=== PATIENT | male | born 1955 | race Caucasian/White ===

== ENCOUNTER → 2017-12-12 10:22 | Outpatient (CLI) | payer MEDICARE, BC, SELFPAY ==
--- NOTE | 2017-12-12 10:45 | IR_ITS ---
IR shuntogram CLINICAL INDICATION: ITS.REASON: NORMAL PRESSURE HYDROCEPHALUS ORDERING PHYSICIAN: Niels Corona MD PATIENT AGE: 62 years Comparison: 02/01/2016 FINDINGS: Multiple images are obtained including AP and lateral skull, PA and lateral chest, AP and lateral abdomen. There is a right ventriculoperitoneal shunt present. The shunt does appear intact throughout its course from the right parietal region of the skull along the right neck, right anterior chest, and right side of the abdomen anteriorly with shunt coursing toward the left side of the abdomen in the upper pelvic region where it appears to enter the abdominal cavity with the tip residing in the left mid abdominal region. No obvious kinks within the catheter. The cardiovascular structures have an unremarkable appearance. There is a calcified granuloma in the left upper lobe. There are degenerative changes in the thoracic spine. The bowel gas pattern is unremarkable. No acute bony anomalies are evident. IMPRESSION: Radiographically, the ventriculoperitoneal catheter appears intact as described above.
== END ==
PROVIDERS: PCP Family Medicine; Visit Provider Family Medicine
DX: G91.2 (Idiopathic) normal pressure hydrocephalus (principal)
CPT/HCPCS: 75809

== ENCOUNTER → 2018-12-25 13:33 | Outpatient (CLI) | payer MEDICARE, SELFPAY ==
--- NOTE | 2018-12-25 13:36 | US_ITS ---
APPROVED REPORT [employer] Designer: Jennifer Lizama, RT(R) Indications Risk Factors Hyperlipidemia Diabetes History of Smoking Pressures/Indices Right Indices Left Indices Brachial 98.00 mmHg Brachial 100.00 mmHg Low Thigh 102.00 mmHg 1.02 Low Thigh 106.00 mmHg 1.06 Calf 100.00 mmHg 1.00 Calf 101.00 mmHg 1.01 Ankle(PT) 109.00 mmHg 1.09 Ankle(PT) 102.00 mmHg 1.02 Ankle(DP) 84.00 mmHg 0.84 Ankle(DP) 102.00 mmHg 1.02 Digit 70.00 mmHg 0.70 Digit 83.00 mmHg 0.83 Findings RT MURALI=1.1 LT MURALI=1.0 RT TBI=0.7 LT TBI=0.8 Normal waveforms Normal pulses Conclusion Normal Electronically signed by : Marvin Espinoza MD 12/29/2018 09:24:38
== END ==
PROVIDERS: PCP Family Medicine; Visit Provider Podiatrist
DX: R09.89 Other specified symptoms and signs involving the circulatory and respiratory systems (principal)
CPT/HCPCS: 93923

== ENCOUNTER 2018-12-25 15:00 | Outpatient (RCR) | payer MEDICARE, SELFPAY ==
--- NOTE | 2018-10-14 14:26 | HMH.PTOPWND ---
Rehab Outpt Wound Evaluation Rehab OP Wound Evaluation Start: 10/14/18 13:57 Freq: Status: Active Protocol: Document 10/14/18 14:19 MILLY (Rec: 10/14/18 14:26 PHORNE [id number]) Electronically Signed By Cale Short, MART 10/14/18 14:19 Subjective/History History History Pt is a 62 yowm who presents with c/o increased edema in tyler LE x many years. He reports no c/o pain currently, but is tender to palpation throughout tyler lower legs. He is somewhat of a poor historian and reports he can't walk, but doesn't know why. He uses a motorized scooter for his primary means of mobility, but has a cane with him to assist with transfers. He has hx of DM-II with peripheral neuropathy and ventricular-peritoneal shunt. He is unable to remember any other PMH. Subjective Subjective No c/o pain currently, but 2+ tenderness to palpation throughout the lower legs bilaterally. Lymphedema Eval Classification of Lymphedema Secondary Lymphedema Yes Stemmer's sign Stemmer's Sign no Stage of Lymphedema Lymphedema stages Stage II (Pitting edema, increased fibrosis w/ decreased pitting) Skin Changes Dry Skin Yes Taut, Shiny Skin Yes Redness Yes Brittle Uneven Nails Yes Discoloration of Skin Yes Other Changes Yes Affected Extremities Areas Affected by Lymphedema/Edema Right Lower Extremity,Left Lower Extremity Manual Lymphatic Drainage Treatment Area MLD Treatment Area Right Lower Extremity,Left Lower Extremity Wound Problems/Impairments Impairments Problems/Impairmments Palpation Tenderness,Impaired Strength,Impaired Endurance, Impaired Gait Pattern,Impaired Walking,Impaired Standing, Increased Edema,Lymphedema Present,Subjective C/O Pain, Impaired Self Care/Self Management Prognosis Rehab Potential F
== END 2018-12-25 15:05 | disposition home or self-care (01) ==
LOC: PT 15:00
PROVIDERS: Visit Provider Family Medicine
DX: R60.0 Localized edema (principal)
CPT/HCPCS: 97110; 97112; 97116; 97140; 97162; 97530; 97760

== ENCOUNTER 2018-12-26 11:09 | Observation (INO) ==
--- NOTE | 2018-12-26 13:05 | Emergency Department Note ---
ED Disposition Clinical Impression: Recurrent shoulder dislocation, Contusion of right knee, Diabetes mellitus Disposition: Admitted as Observation Condition on Discharge: Fair Instructions: DI for Moderate Sedation Referrals: Niels Corona MD [Primary Care Provider] - Time of Disposition: 15:22 - Critical Care Critical Care Time: No Attestation: On 12/26/18, the high probability of a clinically significant, sudden or life threatening deterioration of the following system(s) required my full and direct attention, intervention and personal management. The time I documented below is in addition to time spent performing reported procedures but includes the following listed in this critical care notation. Medical Decision Making - Medical Records Medical records reviewed: Yes: I reviewed the patient's medical records. - Naeem Inquiry Pt receiving controlled substance: No Naeem was queried for this patient: No Vital Signs: 12/26/18 11:09 12/26/18 11:39 12/26/18 12:28 Temperature 98.0 F Temperature Source Oral Pulse Rate [Left Radial] 96 H 89 80 Respiratory Rate 20 17 18 Blood Pressure [Left Arm] 159/82 H 149/68 H 138/62 Blood Pressure Mean [Left Arm] 107 95 87 Blood Pressure Source [Left Arm] Automatic Cuff Automatic Cuff Automatic Cuff Blood Pressure Position [Left Arm] Sitting Supine Sitting 02 Sat by Pulse Oximetry 98 91 L 93 L Oxygen Delivery Method Room Air Room Air Room Air Oxygen Flow Rate (LPM) 12/26/18 12:30 12/26/18 12:49 12/26/18 12:53 Temperature Temperature Source Pulse Rate [Left Radial] 85 89 96 H Respiratory Rate 18 18 16 Blood Pressure [Left Arm] 138/62 126/78 141/86 H Blood Pressure Mean [Left Arm] 87 94 104 Blood Pressure Source [Left Arm] Automatic Cuff Automatic Cuff Automatic Cuff Blood Pressure Position [Left Arm] Sitting Sitting Supine 02 Sat by Pulse Oximetry 92 L 96 94 L Oxygen Delivery Method Room Air Nasal Cannula Nasal Cannula Oxygen Flow Rate (LPM) 2 2 12/26/18 12:56 12/26/18 12:59 12/26/18 13:00 Temperature Temperature Source Pulse Rate [Left Radial] 90 87 82 Respiratory Rate 16 16 Blood Pressure [Left Arm] 148/91 H 128/71 136/67 Blood Pressure Mean [Left Arm] 110 90 90 Blood Pressure Source [Left Arm] Automatic Cuff Automatic Cuff Automatic Cuff Blood Pressure Position [Left Arm] Sitting Supine Sitting 02 Sat by Pulse Oximetry 94 L 94 L 94 L Oxygen Delivery Method Nasal Cannula Nasal Cannula Oxygen Flow Rate (LPM) 2 2 12/26/18 13:03 12/26/18 13:30 12/26/18 14:39 Temperature Temperature Source Pulse Rate [Left Radial] 83 81 86 Respiratory Rate 16 17 Blood Pressure [Left Arm] 136/67 171/68 H 127/74 Blood Pressure Mean [Left Arm] 90 102 91 Blood Pressure Source [Left Arm] Automatic Cuff Automatic Cuff Blood Pressure Position [Left Arm] Supine Sitting 02 Sat by Pulse Oximetry 94 L 96 93 L Oxygen Delivery Method Nasal Cannula Room Air Room Air Oxygen Flow Rate (LPM) 2 12/26/18 15:00 Temperature Temperature Source Pulse Rate [Left Radial] 79 Respiratory Rate 18 Blood Pressure [Left Arm] 134/79 Blood Pressure Mean [Left Arm] 97 Blood Pressure Source [Left Arm] Automatic Cuff Blood Pressure Position [Left Arm] Sitting 02 Sat by Pulse Oximetry 98 Oxygen Delivery Method Room Air Oxygen Flow Rate (LPM) - Lab Data Lab results reviewed: Yes: I reviewed the patient's lab results. Lab Results 12/26/18 14:09: WBC 10.2, RBC 4.77, Hgb 13.9 L, Hct 45.1, MCV 94.6 H, MCH 29.1, MCHC 30.7 L, RDW 14.1, Plt Count 228, MPV 6.5 L, Neut % (Auto) 83.2 H, Lymph % (Auto) 9.3 L, [place] % (Auto) 7.3, Eos % (Auto) 0.0 L, Baso % (Auto) 0.1, Neut # (Auto) 8.5 H, Lymph # (Auto) 1.0, [place] # (Auto) 0.8, Eos # (Auto) 0.0, Baso # (Auto) 0.0 12/26/18 14:09: Sodium 138, Potassium 5.4 H, Chloride 103, Carbon Dioxide 29, Anion Gap 11.4, BUN 31 H, Creatinine 1.42 H, Estimated Creat Clear 58, Estimated GFR 50 L, Est GFR ( Amer) 61, Glucose 115 H, Calcium 8.6, Total Bilirubin 0.3, AST 23, ALT 25, Alkaline Phosphatase 59, Total Protein 6.0 L, Albumin 2.7 L , Globulin 3.3 H, Albumin/Globulin Ratio 0.8 L Result diagrams: 12/26/18 14:09 12/26/18 14:09 Orders (Tests/Meds): ED MEDICATIONS Generic Name Dose Route Start Last Admin Trade Name Freq PRN Reason Stop Dose Admin Sodium Chloride 1,000 mls @ 999 mls/hr 12/26/18 13:00 12/26/18 12:59 Sod Chlor 0.9% 1000ml Bag IV 12/26/18 14:00 999 mls/hr .Q1H1M EDISON Administration Discontinued Medications Generic Name Dose Route Start Last Admin Trade Name Freq PRN Reason Stop Dose Admin Ketamine HCl 25 mg 12/26/18 12:49 12/26/18 12:49 Ketamine 500mg/10ml Vial IV 12/26/18 12:50 25 mg ONCE ONE Administration Ketamine HCl 25 mg 12/26/18 12:50 12/26/18 12:50 Ketamine 500mg/10ml Vial IV 12/26/18 12:51 25 mg ONCE ONE Administration Morphine Sulfate 2 mg 12/26/18 12:38 12/26/18 12:39 Morphine 2mg/Ml Syringe IV 12/26/18 12:39 2 mg ONCE ONE Administration - Physician Consults Physician Consulted: joel Time: 15:22 Fall HPI - General Chief Complaint: Fall Stated Complaint: fall Time Seen by Provider: 12/26/18 11:25 Mode of Arrival: Wheelchair Source of Information: Patient Limitations: No Limitations Description of Symptoms (Recalled from ER Triage Doc. by RN): Pt c/o R shoulder pain and R femur pain r/t approx 1 hour [employer]. Pt reports he was walking with his walker and tripped over his dogs. Raised area on lateral side of R femur, pt c/o of pain with any movement of R shoulder. Pt denies LOC, states he did not his head when he fell. - History of Present Illness HPI Narrative: fall using his walker, dogs tripped him up. obvious deformity to right shoulder and pain R knee - Related Data Home Medications Medication Instructions Recorded Confirmed blood sugar diagnostic strips See Dose Instructions .ROUTE 12/15/18 12/15/18 .MEDSUPPLY #100 each divalproex 500 mg tablet,delayed 1,000 mg PO HS #180 tab 12/15/18 12/26/18 release exenatide ER 2 mg/0.65 mL 2 mg SQ WEEKLY #4 each 12/15/18 12/26/18 subcutaneous pen injector ezetimibe 10 mg tablet 10 mg PO DAILY #90 tab 12/15/18 12/26/18 glimepiride 4 mg tablet 4 mg PO DAILY #90 tab 12/15/18 12/26/18 insulin glargine (U-100) 100 55 units SQ DAILY #10 ml 12/15/18 12/26/18 unit/mL subcutaneous solution insulin syringe U-100 with needle See Dose Instructions .ROUTE 12/15/18 12/15/18 0.5 mL 30 gauge x 1/2" .MEDSUPPLY #60 each levothyroxine 100 mcg tablet 100 mcg PO DAILY #30 tab 12/15/18 12/26/18 loperamide 2 mg capsule PO #20 cap 12/15/18 12/15/18 meclizine 25 mg tablet 25 mg PO TID #90 tab 12/15/18 12/26/18 niacin ER 500 mg tablet,extended 500 mg PO HS #90 tab 12/15/18 12/26/18 release 24 hr olanzapine 5 mg tablet 5 mg PO DAILY #90 tab 12/15/18 12/26/18 oxybutynin chloride 5 mg tablet 5 mg PO BID #180 tab 12/15/18 12/26/18 pioglitazone 15 mg tablet 15 mg PO DAILY #60 tab 12/15/18 12/26/18 potassium chloride ER 20 mEq 20 meq PO DAILY #90 tab 12/15/18 12/26/18 tablet,extended release(part/cryst) spironolactone 25 mg tablet 25 mg PO DAILY #90 tab 12/15/18 12/26/18 Aspirin [Aspirin 325mg Tab] 325 mg PO DAILY 12/26/18 12/26/18 Allergies Allergy/AdvReac Type Severity Reaction Status Date / Time No Known Drug Allergies Allergy Unknown Verified 12/26/18 12:39 [facility] History - Hepatitis A Screen Drug use history?: No High risk sexual behaviors?: No History of sexually transmitted infection?: No Currently employed?: No Childcare worker?: No Do you have indoor plumbing?: Yes Do you have electricity?: Yes Attestation statement:: This patient has been screened for Hepatitis A risk factors. I have reviewed the patient's past medical history: Yes Medical History: Reports:: Diabetes Mellitus Type 2 Amputation: No Fractures: No - Social History Smoking Status: Former smoker Alcohol Intake: never Substance Use Type: denies use Occupational Status: retired Housing: house Household Members: family Family Hx:: No significant family history ROS Obtained: Yes All systems reviewed & no additional complaints - Constitutional Constitutional: Denies chills, Denies fever(s) - Cardiovascular Cardiovascular: Denies chest pain - Respiratory Respiratory: No cough, No dyspnea - Gastrointestinal Gastrointestingal: Denies: abdominal pain - Musculoskeletal Musculoskeletal: Reports joint pain, Reports joint swelling, Reports limited range of motion - Integumentary/Breasts Skin/Breast: Denies rash, Denies skin pain - Neurologic Neurologic: Denies tingling/numbness/burning sensations Physical Exam - General General appearance: alert, in no apparent distress - Head Head exam: atraumatic, normocephalic, normal inspection - Eye Eye exam: Present: normal appearance, PERRL, EOMI - ENT ENT exam: Present: normal exam, normal oropharynx, mucous membranes moist, TM's normal bilaterally, normal external ear exam - Neck Neck exam: Present: normal inspection, full ROM, trachea midline. Absent: meningismus, lymphadenopathy - Chest Chest inspection: Present: normal inspection, symmetric chest wall rise. Absent: tenderness - Respiratory Respiratory exam: Present: normal lung sounds bilaterally. Absent: respiratory distress - Cardiovascular Cardiovascular exam: Present: regular rate - Abdominal Exam Abdominal exam: Present: soft, normal bowel sounds. Absent: distention, tenderness, guarding - Extremities Exam Extremities exam: Present: tenderness, normal capillary refill. Absent: normal inspection, full ROM, calf tenderness - Expanded Upper Extremity Exam Right Shoulder exam: Present: tenderness, swelling, deformity. Absent: normal inspection - Back Exam Back exam: Present: normal inspection. Absent: tenderness - Neurological Exam Neurological exam: Present: alert, oriented X3 - Psychiatric Psychiatric exam: Present: normal affect, normal mood - Skin Skin exam: Present: warm, dry, intact, normal color - Lymphatic Lymphatic Findings: no adenopathy Procedures - Orthopedic Joint Reduction Joint #1 Time Out Performed: No Side: right Joint Reduction Location: shoulder Analgesia: procedural sedation Shoulder Technique Used (if applicable): traction/counter-traction Post-reduction neuro exam: intact Post-reduction vascular: intact Post Reduction X-Ray Obtained: Yes Post Reduction X-Ray Results: reduced
[2018-12-26 14:30] LABS: Basophils % 0.1 % (0.1-2.0); Hematocrit 45.1 % (42.0-52.0); Hemoglobin 13.9 g/dL (14.1-18.0); Lymphocytes % 9.3 % (10-50); Mean Corpuscular HGB Conc 30.7 g/dL (31.8-35.4); Mean Corpuscular Volume 94.6 fl (80-94); Mean Platelet Volume 6.5 fl (7.4-10.4); Monocytes # 0.8 K/mm3 (0.1-1.0); Monocytes % 7.3 % (1.7-9.3); Neutrophils # 8.5 K/mm3 (1.8-7.8); Neutrophils % 83.2 % (37.0-80.0); Platelet Count 228 K/mm3 (142-424); Red Blood Count 4.77 M/mm3 (4.60-6.20); Red Cell Distribution Width 14.1 % (11.5-17.5); White Blood Count 10.2 K/mm3 (4.8-10.8)
[2018-12-26 14:41] LABS: Albumin Level 2.7 gm/dL (3.4-5.0); Albumin/Globulin Ratio 0.8 (1.1-1.8); Anion Gap 11.4 mEq/L (5-15); Bilirubin,Total 0.3 mg/dL (0.2-1.0); Calcium 8.6 mg/dL (8.5-10.1); Globulin 3.3 gm/dl (1.3-3.2)
[2018-12-27 06:38] LABS: Basophils % 0.2 % (0.1-2.0); Eosinophils % 0.3 % (0.1-12.0); Hematocrit 42.5 % (42.0-52.0); Hemoglobin 13.8 g/dL (14.1-18.0); Lymphocytes # 1.8 K/mm3 (0.7-4.5); Lymphocytes % 20.8 % (10-50); Mean Corpuscular HGB Conc 32.4 g/dL (31.8-35.4); Mean Corpuscular Volume 93.7 fl (80-94); Mean Platelet Volume 6.8 fl (7.4-10.4); Monocytes # 0.8 K/mm3 (0.1-1.0); Monocytes % 9.2 % (1.7-9.3); Neutrophils % 69.4 % (37.0-80.0); Platelet Count 225 K/mm3 (142-424); Red Blood Count 4.54 M/mm3 (4.60-6.20); Red Cell Distribution Width 14.1 % (11.5-17.5); White Blood Count 8.6 K/mm3 (4.8-10.8)
[2018-12-27 07:13] LABS: Anion Gap 8.4 mEq/L (5-15)
[2018-12-27 07:28] LABS: Calcium 8.3 mg/dL (8.5-10.1)
--- NOTE | 2018-12-27 08:08 | Pharmacy Consult Notes ---
[facility] Pharmacy VTE Monitoring - Patient Demographics Admission date: 12/26/18 Report Date: 12/27/18 Time: 08:07 Allergies/Adverse Reactions: Patient Allergies No Known Drug Allergies Allergy (Unknown, Verified 12/26/18 12:39) Height: 1.83 m Weight: 154.4 kg Patient Problems: Current Active Problems Recurrent shoulder dislocation (Acute) Contusion of right knee (Acute) Diabetes mellitus (Acute) - VTE Risk Labs: VTE Related Lab Results Hgb 13.8 g/dL (14.1-18.0) L 12/27/18 06:32 Hct 42.5 % (42.0-52.0) 12/27/18 06:32 Plt Count 225 K/mm3 (142-424) 12/27/18 06:32 BUN 22 mg/dL (7-18) H D 12/27/18 06:32 Creatinine 1.12 mg/dL (0.70-1.30) D 12/27/18 06:32 Estimated Creat Clear 73 mL/min (50-200) 12/27/18 06:32 Was VTE Risk Assessment Performed: Yes VTE Score: 4 VTE Risk Level: Low Risk - Prophylaxis VTE Prophylaxis Ordered?: Yes Types of VTE Prophylaxis: TEDS Knee High Location of Applied Device: Bilateral Lower Extremeties - VTE Diagnosis Confirmed Treatment or plan recommended: Continue Current Treatment
--- NOTE | 2018-12-27 08:43 | History & Physical Report ---
*Admission Date: 12/26/18 *Chief complaint: Shoulder injury in a fall *History of present illness: This 63-year-old white male fell and dislocated his right shoulder. He was seen in the emergency room the shoulder was reduced by the ER doctor. He had an injury to the right femur but x-rays were negative here. He has ongoing problems with mobility. He has normal pressure hydrocephalus and has a shunt in place. He has a lot of leg edema as a rule. He is not very mobile at home. He does have a scooter. What happened to him yesterday morning was that he was using his walker and his dogs got in his way and he fell. He feels that he is not going to be able to go home. His gives him much assistance and he feels that with this additional disability she will not be able to manage him. He feels that a short stay for rehabilitation in a long-term may be a possibility. [facility] History Medical History: Reports:: Diabetes Mellitus Type 2, Hyperlipidemia, Hypertension Denies:: Cancer *Have you ever received a pneumonia vaccine?: Yes *Have you received a flu vaccine this season?: Yes Other Medical History: Reports: Hypothyroidism Comment:: Normal pressure hydrocephalus with a shunt in place. Other Surgeries: Yes: Other Amputation: No Fractures: No - *Social History Educational Level: Completed High School Smoking Status: Former smoker Tobacco Type: cigars Alcohol Intake: never Substance Use Type: denies use *Occupational Status:: retired, disabled Housing: house Household Members: spouse *Travel in the last 8 weeks: None - Psychiatric History Expresses thoughts of harming self/others: None Suicide Plan Description: No Plan Family Hx:: No significant family history Review of Systems - Constitutional Denies body ache(s), Denies chills - Eyes Denies change in vision - ENT Denies difficulty swallowing - *Cardiovascular Reports shortness of breath, Reports leg swelling, Denies chest pain, Denies irregular heart rhythm - *Respiratory Denies chest congestion - *Gastrointestinal Reports loose stools (He reports diarrhea 5 times on .), Denies abdominal pain - *Genitourinary Reports urinary incontinence, Reports urinary urgency - *Musculoskeletal Reports abnormal walking, Reports muscle weakness - Integumentary/Breasts Denies yellowing of the skin - *Neurologic Reports abnormal walking, Reports unsteadiness, Reports localized weakness, Denies tingling/numbness/burning sensations - Psychiatric Reports anxiety (Takes Zyprexa. In the remote past had hallucinations) - Hematologic/Lymphatic Denies easy bruising - Allergic/Immunologic Reports seasonal runny nose, Denies wheezing Meds Home Medications Medication Instructions Recorded Confirmed Type divalproex 500 mg tablet,delayed 1,000 mg PO HS #180 tab 12/15/18 12/26/18 History release exenatide ER 2 mg/0.65 mL 2 mg SQ WEEKLY #4 each 12/15/18 12/26/18 History subcutaneous pen injector ezetimibe 10 mg tablet 10 mg PO DAILY #90 tab 12/15/18 12/26/18 History glimepiride 4 mg tablet 4 mg PO DAILY #90 tab 12/15/18 12/26/18 History insulin glargine (U-100) 100 55 units SQ DAILY #10 ml 12/15/18 12/26/18 History unit/mL subcutaneous solution levothyroxine 100 mcg tablet 100 mcg PO DAILY #30 tab 12/15/18 12/26/18 History meclizine 25 mg tablet 25 mg PO TID #90 tab 12/15/18 12/26/18 History niacin ER 500 mg tablet,extended 500 mg PO HS #90 tab 12/15/18 12/26/18 History release 24 hr olanzapine 5 mg tablet 5 mg PO DAILY #90 tab 12/15/18 12/26/18 History oxybutynin chloride 5 mg tablet 5 mg PO BID #180 tab 12/15/18 12/26/18 History pioglitazone 15 mg tablet 15 mg PO DAILY #60 tab 12/15/18 12/26/18 History potassium chloride ER 20 mEq 20 meq PO DAILY #90 tab 12/15/18 12/26/18 History tablet,extended release(part/cryst) spironolactone 25 mg tablet 25 mg PO DAILY #90 tab 12/15/18 12/26/18 History Ascorbic Acid/Ascorbate Sodium 500 mg PO DAILY 12/26/18 12/26/18 History [Vitamin C 250 mg Tablet Chew] Aspirin [Aspirin 325mg Tab] 325 mg PO DAILY 12/26/18 12/26/18 History Cholecalciferol (Vitamin D3) 1,000 unit PO DAILY 12/26/18 12/26/18 History [Vitamin D3 1,000 Unit Cap] Cyanocobalamin (Vitamin B-12) 2,500 mcg SL DAILY 12/26/18 12/26/18 History [B-12] Furosemide [Furosemide 40MG tAB] 40 mg PO BID 12/26/18 12/26/18 History Allergies Allergy/AdvReac Type Severity Reaction Status Date / Time No Known Drug Allergies Allergy Unknown Verified 12/26/18 12:39 Exam Vital signs and Labs for Last 24 Hours: Temp Pulse Resp BP Pulse Ox 97.9 F 94 H 18 152/83 H 92 L 12/27/18 07:55 12/27/18 07:55 12/27/18 07:55 12/27/18 07:55 12/27/18 07:55 Laboratory Results - last 24 hr 12/26/18 14:09: WBC 10.2, RBC 4.77, Hgb 13.9 L, Hct 45.1, MCV 94.6 H, MCH 29.1, MCHC 30.7 L, RDW 14.1, Plt Count 228, MPV 6.5 L, Neut % (Auto) 83.2 H, Lymph % (Auto) 9.3 L, [place] % (Auto) 7.3, Eos % (Auto) 0.0 L, Baso % (Auto) 0.1, Neut # (Auto) 8.5 H, Lymph # (Auto) 1.0, [place] # (Auto) 0.8, Eos # (Auto) 0.0, Baso # (Auto) 0.0 12/26/18 14:09: Sodium 138, Potassium 5.4 H, Chloride 103, Carbon Dioxide 29, Anion Gap 11.4, BUN 31 H, Creatinine 1.42 H, Estimated Creat Clear 58, Estimated GFR 50 L, Est GFR ( Amer) 61, Glucose 115 H, Calcium 8.6, Total Bilirubin 0.3, AST 23, ALT 25, Alkaline Phosphatase 59, Total Protein 6.0 L, Albumin 2.7 L , Globulin 3.3 H, Albumin/Globulin Ratio 0.8 L 12/26/18 17:00: POC Glucose 110 12/26/18 21:00: POC Glucose 129 H 12/27/18 06:32: WBC 8.6, RBC 4.54 L, Hgb 13.8 L, Hct 42.5, MCV 93.7, MCH 30.3, MCHC 32.4, RDW 14.1, Plt Count 225, MPV 6.8 L, Neut % (Auto) 69.4, Lymph % (Auto) 20.8, [place] % (Auto) 9.2, Eos % (Auto) 0.3, Baso % (Auto) 0.2, Neut # (Auto) 6.0, Lymph # (Auto) 1.8, [place] # (Auto) 0.8, Eos # (Auto) 0.0, Baso # (Auto) 0.0 12/27/18 06:32: Sodium 139, Potassium 4.4, Chloride 103, Carbon Dioxide 32, Anion Gap 8.4, BUN 22 H D, Creatinine 1.12 D, Estimated Creat Clear 73, Estimated GFR 66, Est GFR ( Amer) 80 D, Glucose 99, Calcium 8.3 L 12/27/18 07:09: POC Glucose 55 L 12/27/18 07:23: POC Glucose 68 L I & O for Last 24 hours: Intake & Output 12/24/18 12/25/18 12/26/18 12/27/18 11:59 11:59 11:59 11:59 Intake Total 1630 / 1630 Output Total 500 / 500 Balance 1130 / 1130 Weight 340 lb 340 lb 6.299 oz - Constitutional no acute distress, morbidly obese - *Routine HEENT Exam Head: Absent: normocephalic (Surgical scar in the right side of the head. Shunt in place.) Eye: Present: PERRL ENT: Present: mucous membranes moist - *Routine Neck Exam Present: supple (Shunt is traceable) - Routine Chest/Breast/Axilla Exam Breast: Absent: tenderness Axillae: Absent: lymphadenopathy - *Routine Respiratory Exam Present: CTA bilaterally - *Routine Cardiovascular Exam Present: RRR - *Routine Abdominal Exam Present: soft (Obese). Absent: tenderness, mass - *Routine Exam Scrotal: Absent: swelling, tenderness (Penis is small and is retracted due to abdominal and pubic fat) - *Routine Extremities Exam Present: edema (4+ with some anterior tibial erythema) Comments: The right arm is in a sling and swath. Circulation and movement of fingers is intact. - *Routine Skin Exam Present: intact - *Routine Neurological Exam Present: alert, oriented X3 - Routine Psychiatric Exam Present: normal affect, normal thought process. Absent: auditory hallucinations, visual hallucinations Assessment and Plan (1) Recurrent shoulder dislocation Current visit: Yes Status: Acute Qualifiers: Laterality: right Qualified Code(s): M24.411 - Recurrent dislocation, right shoulder Category: Medical Code(s): M24.419 - Recurrent dislocation, unspecified shoulder (2) Normal pressure hydrocephalus Current visit: Yes Status: Acute Category: Medical Code(s): G91.2 - (Idiopathic) normal pressure hydrocephalus (3) Ventriculo-peritoneal shunt status Current visit: Yes Status: Acute Category: Surgical Code(s): Z98.2 - Presence of cerebrospinal fluid drainage device (4) Anxiety disorder Current visit: Yes Status: Acute Category: Medical Code(s): F41.9 - Anxiety disorder, unspecified (5) Contusion of right knee Current visit: Yes Status: Acute Category: Medical Code(s): S80.01XA - Contusion of right knee, initial encounter (6) Diabetes mellitus Current visit: Yes Status: Acute Category: Medical Code(s): E11.9 - Type 2 diabetes mellitus without complications (7) Hypothyroidism Current visit: Yes Status: Acute Category: Medical Code(s): E03.9 - Hypothyroidism, unspecified - Assessment and plan all Dx Assessment and Plan for all problems:: The patient will remain hospitalized due to his overall decrease in mobility and inability to take care of himself. He will require placement for rehab.
[2018-12-27 10:11] LABS: Microscopic, Urine URINE MICROSCOPIC (MICROSCOPIC)
[2018-12-27 10:14] LABS: Appearance,Urine CLEAR (Clear); Bilirubin,Urine Negative (Negative); Blood, Urine Negative (Negative); Color,Urine YELLOW (Yellow); Glucose,Urine (UA) Negative (Negative); Ketones,Urine Negative (Negative); Leukocyte Esterase,Urine Negative (Negative); PH,Urine 5.5 (5.0-8.5); Protein,Urine Negative (Negative); Specific Gravity, Urine 1.025 (1.005-1.030); Urobilinogen,Urine 0.2 EU/dl (0.2)
[2018-12-27 10:22] LABS: Bacteria,Urine 1+ /lpf; Squamous Epithelial Cell,Urine Occasional #/hpf (0-5); WBC,Urine Occasional #/hpf (0-3)
--- NOTE | 2018-12-27 14:45 | Consult Report ---
*Admission Date: 12/26/18 *Reason for consult:: Right shoulder dislocation *History of present illness: Patient is a 63-year-old white male admitted from the ER yesterday for social reasons. He fell fell at home when he tripped over his dogs while walking with a walker. He says he injured his right shoulder and presented to the ER where x-rays showed an anterior dislocation of the right shoulder. The shoulder was reduced by the ER doctor under sedation. Following this the patient was admitted for social reasons. He has multiple comorbidities including morbid obesity and has very poor mobility. He says he cannot manage at home and is wanting to go to a short-term rehab place until he is sufficiently recovers. Also reports some pain over the right thigh but x-rays were negative here. He has ongoing problems with mobility. He has normal pressure hydrocephalus and has a shunt in place. He has chronic severe lower extremity edema. He is not very mobile at home. He does have a scooter. He is in an arm sling on the right side and still complaining of significant pain especially with any attempted shoulder movements. No history of any distal tingling or numbness. He feels that he is not going to be able to go home. His gives him much assistance and he feels that with this additional disability she will not be able to manage him. He feels that a short stay for rehabilitation in a detention may be better for him. Review of Systems - Constitutional Denies anorexia, Denies chills, Denies fever(s) - *Cardiovascular Denies chest pain - *Respiratory Denies chest congestion, Denies cough - *Gastrointestinal Denies abdominal pain - *Musculoskeletal Reports abnormal walking, Reports joint pain, Reports limited joint movement - Integumentary/Breasts Denies rash - *Neurologic Reports abnormal walking, Reports unsteadiness, Reports localized weakness, Denies tingling/numbness/burning sensations [facility] History I have reviewed the patient's past medical history: Yes Medical History: Reports:: Diabetes Mellitus Type 2, Hyperlipidemia, Hypertension Denies:: Cancer *Have you ever received a pneumonia vaccine?: Yes *Have you received a flu vaccine this season?: Yes Other Medical History: Reports: Hypothyroidism Other Surgeries: Yes: Other Amputation: No Fractures: No - *Social History Educational Level: Completed High School Smoking Status: Former smoker Tobacco Type: cigars Alcohol Intake: never Substance Use Type: denies use *Occupational Status:: retired, disabled Housing: house Household Members: spouse *Travel in the last 8 weeks: None - Psychiatric History Expresses thoughts of harming self/others: None Suicide Plan Description: No Plan Family Hx:: No significant family history Meds Home Medications Medication Instructions Recorded Confirmed Type divalproex 500 mg tablet,delayed 1,000 mg PO HS #180 tab 12/15/18 12/26/18 History release exenatide ER 2 mg/0.65 mL 2 mg SQ WEEKLY #4 each 12/15/18 12/26/18 History subcutaneous pen injector ezetimibe 10 mg tablet 10 mg PO DAILY #90 tab 12/15/18 12/26/18 History glimepiride 4 mg tablet 4 mg PO DAILY #90 tab 12/15/18 12/26/18 History insulin glargine (U-100) 100 55 units SQ DAILY #10 ml 12/15/18 12/26/18 History unit/mL subcutaneous solution levothyroxine 100 mcg tablet 100 mcg PO DAILY #30 tab 12/15/18 12/26/18 History meclizine 25 mg tablet 25 mg PO TID #90 tab 12/15/18 12/26/18 History niacin ER 500 mg tablet,extended 500 mg PO HS #90 tab 12/15/18 12/26/18 History release 24 hr olanzapine 5 mg tablet 5 mg PO DAILY #90 tab 12/15/18 12/26/18 History oxybutynin chloride 5 mg tablet 5 mg PO BID #180 tab 12/15/18 12/26/18 History pioglitazone 15 mg tablet 15 mg PO DAILY #60 tab 12/15/18 12/26/18 History potassium chloride ER 20 mEq 20 meq PO DAILY #90 tab 12/15/18 12/26/18 History tablet,extended release(part/cryst) spironolactone 25 mg tablet 25 mg PO DAILY #90 tab 12/15/18 12/26/18 History Ascorbic Acid/Ascorbate Sodium 500 mg PO DAILY 12/26/18 12/26/18 History [Vitamin C 250 mg Tablet Chew] Aspirin [Aspirin 325mg Tab] 325 mg PO DAILY 12/26/18 12/26/18 History Cholecalciferol (Vitamin D3) 1,000 unit PO DAILY 12/26/18 12/26/18 History [Vitamin D3 1,000 Unit Cap] Cyanocobalamin (Vitamin B-12) 2,500 mcg SL DAILY 12/26/18 12/26/18 History [B-12] Furosemide [Furosemide 40MG tAB] 40 mg PO BID 12/26/18 12/26/18 History Allergies Allergy/AdvReac Type Severity Reaction Status Date / Time No Known Drug Allergies Allergy Unknown Verified 12/26/18 12:39 Exam Vital signs and Labs for Last 24 Hours: Temp Pulse Resp BP Pulse Ox 97.9 F 94 H 18 152/83 H 92 L 12/27/18 07:55 12/27/18 07:55 12/27/18 07:55 12/27/18 07:55 12/27/18 09:00 Laboratory Results - last 24 hr 12/26/18 14:09: Sodium 138, Potassium 5.4 H, Chloride 103, Carbon Dioxide 29, Anion Gap 11.4, BUN 31 H, Creatinine 1.42 H, Estimated Creat Clear 58, Estimated GFR 50 L, Est GFR ( Amer) 61, Glucose 115 H, Calcium 8.6, Total Bilirubin 0.3, AST 23, ALT 25, Alkaline Phosphatase 59, Total Protein 6.0 L, Albumin 2.7 L , Globulin 3.3 H, Albumin/Globulin Ratio 0.8 L 12/26/18 17:00: POC Glucose 110 12/26/18 21:00: POC Glucose 129 H 12/27/18 06:32: WBC 8.6, RBC 4.54 L, Hgb 13.8 L, Hct 42.5, MCV 93.7, MCH 30.3, MCHC 32.4, RDW 14.1, Plt Count 225, MPV 6.8 L, Neut % (Auto) 69.4, Lymph % (Auto) 20.8, Barnes % (Auto) 9.2, Eos % (Auto) 0.3, Baso % (Auto) 0.2, Neut # (Auto) 6.0, Lymph # (Auto) 1.8, Barnes # (Auto) 0.8, Eos # (Auto) 0.0, Baso # (Auto) 0.0 12/27/18 06:32: Sodium 139, Potassium 4.4, Chloride 103, Carbon Dioxide 32, Anion Gap 8.4, BUN 22 H D, Creatinine 1.12 D, Estimated Creat Clear 73, Estimated GFR 66, Est GFR ( Amer) 80 D, Glucose 99, Calcium 8.3 L 12/27/18 07:09: POC Glucose 55 L 12/27/18 07:23: POC Glucose 68 L 12/27/18 08:37: POC Glucose 150 H 12/27/18 10:00: Urine Color Yellow, Urine Appearance Clear, Urine pH 5.5, Ur Specific [place] 1.025, Urine Protein Negative, Urine Glucose (UA) Negative, Urine Ketones Negative, Urine Blood Negative, Urine Nitrate Negative, Urine Bilirubin Negative, Urine Urobilinogen 0.2, Ur Leukocyte Esterase Negative, Urine WBC Occasional, Ur Squamous Epith Cells Occasional, Urine Bacteria 1+ 12/27/18 12:23: POC Glucose 238 H I & O for Last 24 hours: Intake & Output 12/25/18 12/26/18 12/27/18 12/28/18 11:59 11:59 11:59 11:59 Intake Total 1630 / 1630 360 / 360 Output Total 3300 / 3300 Balance -1670 / -1670 360 / 360 Weight 340 lb 340 lb 6.299 oz - Constitutional no acute distress, morbidly obese, cooperative - *Routine HEENT Exam Head: Present: normocephalic, atraumatic Eye: Present: EOMI ENT: Present: mucous membranes moist - *Routine Neck Exam Present: supple, trachea midline. Absent: lymphadenopathy - *Routine Respiratory Exam Present: CTA bilaterally. Absent: respiratory distress - *Routine Cardiovascular Exam Present: RRR, Normal S1, Normal S2 - *Routine Abdominal Exam Present: soft, normoactive bowel sounds. Absent: organomegaly - *Routine Extremities Exam Present: edema Comments: On examination of his right shoulder, the skin is intact; there is no ecchymosis, swelling or deformity. He is diffusely tender over the right shoulder. Any attempted shoulder movements are uncomfortable. He is nontender over the elbow, wrist and hand. He has good range of pain-free elbow, forearm, wrist and finger movements. Distal sensation is intact light touch throughout. Radial pulse 2+ capillary refill is brisk. On examination of his right thigh, there is no swelling or deformity. He has mild tenderness over the distal thigh. He has limited mobility in both knee joints and has marked edema of both lower extremities. Diagnostic imaging: I have reviewed x-rays of his right shoulder and right thigh performed at [facility] along with the radiologist report. The shoulder x-ray showed an initial anterior dislocation which was well reduced and the subsequent postreduction x-rays. No acute fractures are noted. [facility] thigh x-ray showed no acute bony injury. - Routine Back/Spine/Pelvis Exam Back/Spine: Absent: vertebral tenderness - *Routine Skin Exam Present: intact, warm, normal turgor - *Routine Neurological Exam Present: alert, oriented X3 - Routine Psychiatric Exam Present: normal affect, cooperative Results - Labs Result Diagrams: 12/27/18 06:32 12/27/18 06:32 Labs: Abnormal lab results 12/26/18 12/26/18 12/27/18 Range/Units 14:09 21:00 06:32 RBC 4.54 L (4.60-6.20) M/mm3 Hgb 13.8 L (14.1-18.0) g/dL MPV 6.8 L (7.4-10.4) fl Potassium 5.4 H (3.5-5.1) mmoL/L BUN 31 H (7-18) mg/dL Creatinine 1.42 H (0.70-1.30) mg/dL Estimated GFR 50 L (>60) ml/min Glucose 115 H (74-106) mg/dL POC Glucose 129 H (70-110) Calcium (8.5-10.1) mg/dL Total Protein 6.0 L (6.4-8.2) gm/dL Albumin 2.7 L (3.4-5.0) gm/dL Globulin 3.3 H (1.3-3.2) gm/dl Albumin/Globulin Ratio 0.8 L (1.1-1.8) 12/27/18 12/27/18 12/27/18 Range/Units 06:32 07:09 07:23 RBC (4.60-6.20) M/mm3 Hgb (14.1-18.0) g/dL MPV (7.4-10.4) fl Potassium (3.5-5.1) mmoL/L BUN 22 H D (7-18) mg/dL Creatinine (0.70-1.30) mg/dL Estimated GFR (>60) ml/min Glucose (74-106) mg/dL POC Glucose 55 L 68 L (70-110) Calcium 8.3 L (8.5-10.1) mg/dL Total Protein (6.4-8.2) gm/dL Albumin (3.4-5.0) gm/dL Globulin (1.3-3.2) gm/dl Albumin/Globulin Ratio (1.1-1.8) 12/27/18 12/27/18 Range/Units 08:37 12:23 RBC (4.60-6.20) M/mm3 Hgb (14.1-18.0) g/dL MPV (7.4-10.4) fl Potassium (3.5-5.1) mmoL/L BUN (7-18) mg/dL Creatinine (0.70-1.30) mg/dL Estimated GFR (>60) ml/min Glucose (74-106) mg/dL POC Glucose 150 H 238 H (70-110) Calcium (8.5-10.1) mg/dL Total Protein (6.4-8.2) gm/dL Albumin (3.4-5.0) gm/dL Globulin (1.3-3.2) gm/dl Albumin/Globulin Ratio (1.1-1.8) H & H 12/26/18 12/27/18 Range/Units 14:09 06:32 Hgb 13.9 L 13.8 L (14.1-18.0) g/dL Hct 45.1 42.5 (42.0-52.0) % All other labs normal. Assessment and Plan (1) Dislocation of shoulder, anterior, right, closed Current visit: Yes Status: Acute Qualifiers: Encounter type: initial encounter Qualified Code(s): S43.014A - Anterior dislocation of right humerus, initial encounter Category: Medical Code(s): S43.014A - Anterior dislocation of right humerus, initial encounter (2) Normal pressure hydrocephalus Current visit: Yes Status: Acute Category: Medical Code(s): G91.2 - (Idiopathic) normal pressure hydrocephalus (3) Ventriculo-peritoneal shunt status Current visit: Yes Status: Acute Category: Surgical Code(s): Z98.2 - Presence of cerebrospinal fluid drainage device (4) Anxiety disorder Current visit: Yes Status: Acute Category: Medical Code(s): F41.9 - Anxiety disorder, unspecified (5) Contusion of right knee Current visit: Yes Status: Acute Category: Medical Code(s): S80.01XA - Contusion of right knee, initial encounter (6) Diabetes mellitus Current visit: Yes Status: Acute Category: Medical Code(s): E11.9 - Type 2 diabetes mellitus without complications (7) Hypothyroidism Current visit: Yes Status: Acute Category: Medical Code(s): E03.9 - Hypothyroidism, unspecified - Assessment and plan all Dx Assessment and Plan for all problems:: I have reviewed the clinical and x-ray findings with the patient and his family who were with him in the room. I have discussed the diagnosis, natural history and management options in detail. He suffered a traumatic first-time dislocation of the right shoulder which was successfully reduced in the ER under sedation. No evidence of any associated fracture is noted. He is in an arm sling and have advised him to continue. Advised him to rest, activity modification, regular icing, simple pain medication as needed. Encouraged him to mobilize elbow, forearm, wrist and fingers intermittently out of the sling. I have told the patient that he may very well have a rotator cuff tear which is common after this type of injuries. However, given his medical comorbidities and high risk of potential complications with surgery we would plan to manage him nonoperatively to begin with. Patient also is not keen on any surgical intervention and is happy with this plan. I have told him that his shoulder function and mobility may never be back to preinjury level and he understands. All his questions were answered and he verbalized understanding. Patient can be discharged from an orthopedic standpoint and I would like to see him for follow- up in my office in couple of weeks time.
--- NOTE | 2018-12-28 08:47 | Progress Note ---
Internal Medicine - PN: Subj *Date: 12/28/18 *Time: 08:44 Interval history: Patient states he feels about the same. He has not been out of bed. He states he cannot feed himself with his left hand and cannot move his right. He states he has difficulty bending his legs are moving his legs at all. He states they are too heavy. Denies chest pain and shortness of breath. Bowels have not moved although he is passing gas. He is eating without nausea. Exam Vital signs and Labs for Last 24 Hours: Temp Pulse Resp BP Pulse Ox 97.5 F L 65 20 130/58 L 92 L 12/28/18 08:00 12/28/18 08:00 12/28/18 08:00 12/28/18 08:00 12/28/18 08:00 Laboratory Results - last 24 hr 12/27/18 06:51: POC Glucose 51 L 12/27/18 06:55: POC Glucose 52 L 12/27/18 08:37: POC Glucose 150 H 12/27/18 10:00: Urine Color Yellow, Urine Appearance Clear, Urine pH 5.5, Ur Specific [place] 1.025, Urine Protein Negative, Urine Glucose (UA) Negative, Urine Ketones Negative, Urine Blood Negative, Urine Nitrate Negative, Urine Bilirubin Negative, Urine Urobilinogen 0.2, Ur Leukocyte Esterase Negative, Urine WBC Occasional, Ur Squamous Epith Cells Occasional, Urine Bacteria 1+ 12/27/18 12:23: POC Glucose 238 H 12/27/18 21:43: POC Glucose 197 H 12/28/18 05:41: POC Glucose 129 H I & O for Last 24 hours: Intake & Output 12/25/18 12/26/18 12/27/18 12/28/18 11:59 11:59 11:59 11:59 Intake Total 1630 / 1630 1080 / 1080 Output Total 3300 / 3300 1200 / 1200 Balance -1670 / -1670 -120 / -120 Weight 340 lb 340 lb 6.299 oz 340 lb 7 oz - Constitutional no acute distress, obese - *Routine Respiratory Exam Present: CTA bilaterally - *Routine Cardiovascular Exam Present: RRR - *Routine Abdominal Exam Present: normoactive bowel sounds. Absent: tenderness Comments: Obese - *Routine Extremities Exam Comments: Bilateral leg edema. Bilateral [place] wraps from feet up to knees. Barely able to bend legs at the knees. - *Routine Neurological Exam Present: alert, oriented X3 Assessment and Plan (1) Dislocation of shoulder, anterior, right, closed Current visit: Yes Status: Acute Qualifiers: Encounter type: initial encounter Qualified Code(s): S43.014A - Anterior dislocation of right humerus, initial encounter Category: Medical Code(s): S43.014A - Anterior dislocation of right humerus, initial encounter (2) Normal pressure hydrocephalus Current visit: Yes Status: Acute Category: Medical Code(s): G91.2 - (Idiopathic) normal pressure hydrocephalus (3) Ventriculo-peritoneal shunt status Current visit: Yes Status: Acute Category: Surgical Code(s): Z98.2 - Presence of cerebrospinal fluid drainage device (4) Anxiety disorder Current visit: Yes Status: Acute Category: Medical Code(s): F41.9 - Anxiety disorder, unspecified (5) Contusion of right knee Current visit: Yes Status: Acute Category: Medical Code(s): S80.01XA - Contusion of right knee, initial encounter (6) Diabetes mellitus Current visit: Yes Status: Acute Category: Medical Code(s): E11.9 - Type 2 diabetes mellitus without complications (7) Hypothyroidism Current visit: Yes Status: Acute Category: Medical Code(s): E03.9 - Hypothyroidism, unspecified (8) Debility Current visit: Yes Status: Acute Category: Medical Code(s): R53.81 - Other malaise (9) Obesity, Class III, BMI 40-49.9 (morbid obesity) Current visit: Yes Status: Acute Category: Medical Code(s): E66.01 - Morbid (severe) obesity due to excess calories - Assessment and plan all Dx Assessment and Plan for all problems:: Care management has seen patient and discuss disposition with patient and . Will look into rehab at [facility]. Consult physical therapy. Patient will need assistance with eating.
--- NOTE | 2018-12-29 08:58 | Progress Note ---
Internal Medicine - PN: Subj *Date: 12/29/18 *Time: 08:55 Interval history: Patient states he does not hurt today. He says he can move his legs somewhat. He did get out of bed and sit in the chair yesterday with assistance of physical therapy. He states he was told to leave his right arm in a sling for 2 weeks until follow-up with Dr. Merida. He continues with a Rogers catheter. Exam Vital signs and Labs for Last 24 Hours: Temp Pulse Resp BP Pulse Ox 98.0 F 71 20 155/70 H 92 L 12/29/18 08:00 12/29/18 08:00 12/29/18 08:00 12/29/18 08:00 12/29/18 08:00 Laboratory Results - last 24 hr 12/28/18 11:46: POC Glucose 151 H 12/28/18 16:37: POC Glucose 175 H 12/28/18 20:10: POC Glucose 172 H 12/29/18 05:36: POC Glucose 127 H 12/29/18 08:14: POC Glucose 156 H I & O for Last 24 hours: Intake & Output 12/26/18 12/27/18 12/28/18 12/29/18 11:59 11:59 11:59 11:59 Intake Total 1630 / 1630 1080 / 1080 720 / 720 Output Total 3300 / 3300 1200 / 1200 4750 / 4750 Balance -1670 / -1670 -120 / -120 -4030 / -4030 Weight 340 lb 340 lb 6.299 oz 340 lb 7 oz 352 lb 11.834 oz - Constitutional no acute distress, obese Comments: Appears comfortable lying in bed - *Routine Respiratory Exam Present: CTA bilaterally - *Routine Cardiovascular Exam Present: RRR - *Routine Abdominal Exam Present: soft, normoactive bowel sounds. Absent: tenderness Comments: Obese - *Routine Extremities Exam Comments: Bilateral lower legs wrapped with aces. Can bend legs farther today. - *Routine Neurological Exam Present: alert, oriented X3 Assessment and Plan (1) Dislocation of shoulder, anterior, right, closed Current visit: Yes Status: Acute Qualifiers: Encounter type: initial encounter Qualified Code(s): S43.014A - Anterior dislocation of right humerus, initial encounter Category: Medical Code(s): S43.014A - Anterior dislocation of right humerus, initial encounter (2) Normal pressure hydrocephalus Current visit: Yes Status: Acute Category: Medical Code(s): G91.2 - (Idiopathic) normal pressure hydrocephalus (3) Ventriculo-peritoneal shunt status Current visit: Yes Status: Acute Category: Surgical Code(s): Z98.2 - Presence of cerebrospinal fluid drainage device (4) Anxiety disorder Current visit: Yes Status: Acute Category: Medical Code(s): F41.9 - Anxiety disorder, unspecified (5) Contusion of right knee Current visit: Yes Status: Acute Category: Medical Code(s): S80.01XA - Contusion of right knee, initial encounter (6) Diabetes mellitus Current visit: Yes Status: Acute Category: Medical Code(s): E11.9 - Type 2 diabetes mellitus without complications (7) Hypothyroidism Current visit: Yes Status: Acute Category: Medical Code(s): E03.9 - Hypothyroidism, unspecified - Assessment and plan all Dx Assessment and Plan for all problems:: Again reviewed with patient necessity to move and follow direction of physical therapy. [facility] to visit today for evaluation. Disposition discussed with patient. Nurse will contact Dr. Merida's office to see if sling can be removed for eating and simple activity.
--- NOTE | 2018-12-30 07:55 | Progress Note ---
Internal Medicine - PN: Subj *Date: 12/30/18 *Time: 09:04 Interval history: Did well last night with feeding himself. Thinks he is a little stronger when getting out of bed with physical therapy. He did sit in the chair again yesterday. Was seen by [facility] who did not accept him for rehab. He denies chest pain and shortness of breath. He has some discomfort in the right arm. He is eating well. He still has a Rogers catheter. Bowels have not moved. Exam Vital signs and Labs for Last 24 Hours: Temp Pulse Resp BP Pulse Ox 97.8 F 79 17 152/83 H 95 12/30/18 03:52 12/30/18 03:52 12/30/18 03:52 12/30/18 03:52 12/30/18 03:52 Laboratory Results - last 24 hr 12/29/18 08:14: POC Glucose 156 H 12/29/18 11:36: POC Glucose 166 H 12/29/18 16:00: POC Glucose 201 H 12/29/18 20:49: POC Glucose 264 H 12/30/18 05:55: POC Glucose 169 H I & O for Last 24 hours: Intake & Output 12/27/18 12/28/18 12/29/18 12/30/18 11:59 11:59 11:59 11:59 Intake Total 1630 / 1630 1080 / 1080 720 / 720 1680 / 1680 Output Total 3300 / 3300 1200 / 1200 4750 / 4750 3175 / 3175 Balance -1670 / -1670 -120 / -120 -4030 / -4030 -1495 / -1495 Weight 340 lb 6.299 oz 340 lb 7 oz 352 lb 11.834 oz 357 lb 2 oz - Constitutional no acute distress Comments: Sitting up in the bed and is feeding himself. He is doing quite well with this activity. - *Routine Respiratory Exam Present: CTA bilaterally - *Routine Cardiovascular Exam Present: RRR - *Routine Abdominal Exam Present: soft, normoactive bowel sounds. Absent: tenderness Comments: Large - *Routine Extremities Exam Absent: edema, calf tenderness - *Routine Neurological Exam Present: alert, oriented X3 Assessment and Plan (1) Dislocation of shoulder, anterior, right, closed Current visit: Yes Status: Acute Qualifiers: Encounter type: initial encounter Qualified Code(s): S43.014A - Anterior dislocation of right humerus, initial encounter Category: Medical Code(s): S43.014A - Anterior dislocation of right humerus, initial encounter (2) Normal pressure hydrocephalus Current visit: Yes Status: Acute Category: Medical Code(s): G91.2 - (Idiopathic) normal pressure hydrocephalus (3) Ventriculo-peritoneal shunt status Current visit: Yes Status: Acute Category: Surgical Code(s): Z98.2 - Presence of cerebrospinal fluid drainage device (4) Anxiety disorder Current visit: Yes Status: Acute Category: Medical Code(s): F41.9 - Anxiety disorder, unspecified (5) Contusion of right knee Current visit: Yes Status: Acute Category: Medical Code(s): S80.01XA - Contusion of right knee, initial encounter (6) Diabetes mellitus Current visit: Yes Status: Acute Category: Medical Code(s): E11.9 - Type 2 diabetes mellitus without complications (7) Hypothyroidism Current visit: Yes Status: Acute Category: Medical Code(s): E03.9 - Hypothyroidism, unspecified - Assessment and plan all Dx Assessment and Plan for all problems:: Placement remains an issue. therapeutic case manager continues to work on this. See notes. Zac bettencourt today. Will need to continue with physical therapy and Occupational Therapy. Will remove Rogers catheter
--- NOTE | 2018-12-30 14:19 | Discharge Summary ---
General - General Admission date:: 12/26/18 Discharge date: 12/30/18 HPI HPI: Mr Castaneda is a 63-year-old white male who fell when using his walker and the dogs got in his wayand dislocated his right shoulder. He was seen in the emergency room and the shoulder was reduced by the ER doctor. He had an injury to the right femur but x-rays were negative for bone injury. Patient has a history of ongoing problems with mobility and uses a scooter at h ome, normal pressure hydrocephalus with a shunt in place, and ongoing leg edema as a rule. What happened to him day of admission was that he was using his walker when his dogs got in his way and he fell. In the ER patient did not feel that he was going to be able to go home. His assists him with his care at home and with the additional disability he felt that she would not be able to manage him. He felt that a short stay for rehabilitation in a longterm may be a possibility. Hospital Course Hospital Course: After admission patient was seen by Dr. Merida, orthopedic surgeon, who noted anterior shoulder dislocation which was well reduced in the emergency room with his sedation. He noted no acute fracture of the shoulder and no bony injury of the right thigh. He suggested keeping the right arm in the sling with mobilization of the right elbow, forearm and wrist as well as the fingers intermittently out of the sling. Initially patient had discomfort of the right shoulder and arm as well as bilateral legs. He was immobile and he remained in the bed. Physical therapy was then consulted and they were able to assist him out of the bed. He did improve with mobility, stated that he felt stronger, and began to use his right arm for feeding himself. He did make very slow progress. Care management was consulted on admission and disposition was a problem. [facility] did evaluate the patient and rejected him for admission for rehab. He was then accepted by [facility] for ongoing physical rehab. On this day 01/30/2019 patient was able to feed himself, and be out of bed in a chair with assistance. He was able to exercise his legs. He had not had a bowel movement but was passing flatus. He had a Rogers catheter which he was dependent on due to the fact that he had not been able to use a urinal in the past. Rogers catheter was removed on day of discharge. He was encouraged to call for help for use of the urinal. He was eating well without nausea. Blood sugars were monitored and he continued on with his insulin. He received meclizine 3 times daily for his ongoing dizziness and meds for his anxiety. Patient was discharged on 01/30/2019 in stable satisfactory condition. Medications as per list. Follow-up will be by Dr. Corona at [facility]. He will continue with physical therapy and Occupational Therapy. He will need assistance setting up food trays for eating, use of the urinal, and any out of bed activity. Objective Vital signs: Temp Pulse Resp BP Pulse Ox 97.9 F 70 18 136/76 92 L 12/30/18 08:00 12/30/18 08:00 12/30/18 08:00 12/30/18 08:00 12/30/18 08:00 Narrative: Exam Vital signs and Labs for Last 24 Hours: Temp Pulse Resp BP Pulse Ox 97.8 F 79 17 152/83 H 95 12/30/18 03:52 12/30/18 03:52 12/30/18 03:52 12/30/18 03:52 12/30/18 03:52 Laboratory Results - last 24 hr 12/29/18 08:14: POC Glucose 156 H 12/29/18 11:36: POC Glucose 166 H 12/29/18 16:00: POC Glucose 201 H 12/29/18 20:49: POC Glucose 264 H 12/30/18 05:55: POC Glucose 169 H I & O for Last 24 hours: Intake & Output 12/27/18 12/28/18 12/29/18 12/30/18 11:59 11:59 11:59 11:59 Intake Total 1630 / 1630 1080 / 1080 720 / 720 1680 / 1680 Output Total 3300 / 3300 1200 / 1200 4750 / 4750 3175 / 3175 Balance -1670 / -1670 -120 / -120 -4030 / -4030 -1495 / -1495 Weight 340 lb 6.299 oz 340 lb 7 oz 352 lb 11.834 oz 357 lb 2 oz - Constitutional no acute distress Comments: Sitting up in the bed and is feeding himself. He is doing quite well with this activity. - *Routine Respiratory Exam Present: CTA bilaterally - *Routine Cardiovascular Exam Present: RRR - *Routine Abdominal Exam Present: soft, normoactive bowel sounds. Absent: tenderness Comments: Large - *Routine Extremities Exam Absent: edema, calf tenderness - *Routine Neurological Exam Present: alert, oriented X3 Results Completed studies during hospitalization [Text1]: 12/26/2018 femur x-ray IMPRESSION: No acute findings. Right shoulder x-ray 12/26/2018 IMPRESSION: Anterior infra glenoid dislocation Right shoulder x-ray after reduction 12/26/2018 IMPRESSION: Reduced shoulder dislocation Laboratory Tests 12/26/18 12/27/18 12/27/18 14:09 06:32 06:32 WBC 8.6 RBC 4.54 L Hgb 13.8 L Hct 42.5 MCV 93.7 MCH 30.3 MCHC 32.4 RDW 14.1 Plt Count 225 Sodium 139 Potassium 4.4 Chloride 103 Carbon Dioxide 32 Anion Gap 8.4 BUN 22 H D Creatinine 1.12 D Estimated Creat Clear 73 Estimated GFR 66 Est GFR ( Amer) 80 D Glucose 99 Calcium 8.3 L Total Bilirubin 0.3 AST 23 ALT 25 Alkaline Phosphatase 59 Total Protein 6.0 L Albumin 2.7 L Globulin 3.3 H Albumin/Globulin Ratio 0.8 L Labs on day of discharge: Labs from last 24 hours 12/30/18 12/30/18 12/29/18 11:51 05:55 20:49 POC Glucose 267 H 169 H 264 H 12/29/18 16:00 POC Glucose 201 H DS: Diagnosis - Discharge Diagnosis (1) Dislocation of shoulder, anterior, right, closed Status: Acute (2) Normal pressure hydrocephalus Status: Chronic (3) Ventriculo-peritoneal shunt status Status: Chronic (4) Anxiety disorder Status: Chronic (5) Contusion of right knee Status: Acute (6) Diabetes mellitus Status: Chronic (7) Hypothyroidism Status: Chronic (8) Debility Status: Chronic (9) Obesity, Class III, BMI 40-49.9 (morbid obesity) Status: Chronic Discharge Plan - Patient Discharge Instructions ACTIVITY: Continue current activity DIET: advance to your usual diet Patient Instructions: Shoulder Dislocation, DI for Shoulder Dislocation, How to Prevent Falls - Follow up Plan Disposition: er [facility] Home Medications: Home Medications Medication Instructions Recorded Confirmed Type divalproex 500 mg tablet,delayed 1,000 mg PO HS #180 tab 12/15/18 12/26/18 History release exenatide ER 2 mg/0.65 mL 2 mg SQ WEEKLY #4 each 12/15/18 12/26/18 History subcutaneous pen injector ezetimibe 10 mg tablet 10 mg PO DAILY #90 tab 12/15/18 12/26/18 History glimepiride 4 mg tablet 4 mg PO DAILY #90 tab 12/15/18 12/26/18 History insulin glargine (U-100) 100 55 units SQ DAILY #10 ml 12/15/18 12/26/18 History unit/mL subcutaneous solution levothyroxine 100 mcg tablet 100 mcg PO DAILY #30 tab 12/15/18 12/26/18 History meclizine 25 mg tablet 25 mg PO TID #90 tab 12/15/18 12/26/18 History niacin ER 500 mg tablet,extended 500 mg PO HS #90 tab 12/15/18 12/26/18 History release 24 hr olanzapine 5 mg tablet 5 mg PO DAILY #90 tab 12/15/18 12/26/18 History oxybutynin chloride 5 mg tablet 5 mg PO BID #180 tab 12/15/18 12/26/18 History pioglitazone 15 mg tablet 15 mg PO DAILY #60 tab 12/15/18 12/26/18 History potassium chloride ER 20 mEq 20 meq PO DAILY #90 tab 12/15/18 12/26/18 History tablet,extended release(part/cryst) spironolactone 25 mg tablet 25 mg PO DAILY #90 tab 12/15/18 12/26/18 History Ascorbic Acid/Ascorbate Sodium 500 mg PO DAILY 12/26/18 12/26/18 History [Vitamin C 250 mg Tablet Chew] Aspirin [Aspirin 325mg Tab] 325 mg PO DAILY 12/26/18 12/26/18 History Cholecalciferol (Vitamin D3) 1,000 unit PO DAILY 12/26/18 12/26/18 History [Vitamin D3 1,000 Unit Cap] Cyanocobalamin (Vitamin B-12) 2,500 mcg SL DAILY 12/26/18 12/26/18 History [B-12] Furosemide [Furosemide 40MG tAB] 40 mg PO BID 12/26/18 12/26/18 History Hydrocodone/Acetaminophen [Lortab 1 tab PO TIDP PRN #90 tab 12/30/18 Rx 7.5/325mg tablet] Prescriptions/Medication Reconciliation: New Hydrocodone/Acetaminophen [Lortab 7.5/325mg tablet] 1 tab PO TIDP PRN #90 tab PRN Reason: Breakthru Moderate Pain Continued spironolactone 25 mg tablet 25 mg PO DAILY #90 tab olanzapine 5 mg tablet 5 mg PO DAILY #90 tab potassium chloride ER 20 mEq tablet,extended release(part/cryst) 20 meq PO DAILY #90 tab pioglitazone 15 mg tablet 15 mg PO DAILY #60 tab levothyroxine 100 mcg tablet 100 mcg PO DAILY #30 tab insulin glargine (U-100) 100 unit/mL subcutaneous solution 55 units SQ DAILY #10 ml ezetimibe 10 mg tablet 10 mg PO DAILY #90 tab meclizine 25 mg tablet 25 mg PO TID #90 tab oxybutynin chloride 5 mg tablet 5 mg PO BID #180 tab niacin ER 500 mg tablet,extended release 24 hr 500 mg PO HS #90 tab divalproex 500 mg tablet,delayed release 1,000 mg PO HS #180 tab glimepiride 4 mg tablet 4 mg PO DAILY #90 tab exenatide ER 2 mg/0.65 mL subcutaneous pen injector 2 mg SQ WEEKLY #4 each Aspirin [Aspirin 325mg Tab] 325 mg PO DAILY Cholecalciferol (Vitamin D3) [Vitamin D3 1,000 Unit Cap] 1,000 unit PO DAILY Ascorbic Acid/Ascorbate Sodium [Vitamin C 250 mg Tablet Chew] 500 mg PO DAILY Furosemide [Furosemide 40MG tAB] 40 mg PO BID Cyanocobalamin (Vitamin B-12) [B-12] 2,500 mcg SL DAILY - Problem Reconciliation Problems Reviewed?: Yes
== END 2018-12-30 15:57 ==
LOC: ER 11:09 → 2ND 11:09
PROVIDERS: ADMIT Family Medicine; ATTEND Family Medicine
CPT/HCPCS: 36415; 73030; 73552; 80048; 80053; 81001; 82962; 85025; 96365; 96375; 96376; 97110; 97161; 97166; 97530; 97535; 99285; G0378

== ENCOUNTER 2018-12-31 17:47 | Inpatient (IN) ==
[2018-12-31 18:18] LABS: Microscopic, Urine URINE MICROSCOPIC (MICROSCOPIC)
[2018-12-31 18:19] LABS: Appearance,Urine CLEAR (Clear); Bilirubin,Urine Negative (Negative); Blood, Urine 1+ (Negative); Color,Urine YELLOW (Yellow); Glucose,Urine (UA) Negative (Negative); Ketones,Urine Negative (Negative); Leukocyte Esterase,Urine Negative (Negative); PH,Urine 5.5 (5.0-8.5); Protein,Urine Negative (Negative); Urobilinogen,Urine 0.2 EU/dl (0.2)
--- NOTE | 2018-12-31 18:38 | Emergency Department Note ---
ED Disposition Condition on Discharge: Fair - Critical Care Critical Care Time: No <Hang Stewart - Last Filed: 12/31/18 20:04> <CristianAgus - Last Filed: 12/31/18 20:39> Clinical Impression: Leukocytosis Qualifiers: Leukocytosis type: unspecified Qualified Code(s): D72.829 - Elevated white blood cell count, unspecified Dyspnea Qualifiers: Dyspnea type: dyspnea on exertion Qualified Code(s): R06.09 - Other forms of dyspnea Disposition: Still a Patient Referrals: Niels Corona MD [Primary Care Provider] - Attestation: On 12/31/18, the high probability of a clinically significant, sudden or life threatening deterioration of the following system(s) required my full and direct attention, intervention and personal management. The time I documented below is in addition to time spent performing reported procedures but includes the following listed in this critical care notation. Medical Decision Making - Naeem Inquiry Pt receiving controlled substance: Yes Naeem was queried for this patient: No Reason not queried -: Emergent pt cond-no time Risks and benefits of using a controlled substance: were not discussed with pt by me - Lab Data Result diagrams: 12/31/18 19:00 - Radiology Data #1 Image(s): Chest Image Reviewed: Yes I reviewed the patient's radiology image <Hang Stewart - Last Filed: 12/31/18 20:04> - Lab Data Result diagrams: 12/31/18 19:00 12/31/18 19:00 - Physician Consults Physician Consulted: sound Reason -: Admission, Pt condition <CristianAgus - Last Filed: 12/31/18 20:39> Vital Signs: 12/31/18 17:52 Temperature 98.3 F Temperature Source Rectal Pulse Rate [Right Brachial] 81 Respiratory Rate 19 Blood Pressure [Right Arm] 128/74 Blood Pressure Mean [Right Arm] 92 Blood Pressure Source [Right Arm] Automatic Cuff Blood Pressure Position [Right Arm] Sitting 02 Sat by Pulse Oximetry 100 Oxygen Delivery Method Room Air - Lab Data Lab Results 12/31/18 18:13: Urine Color Yellow, Urine Appearance Clear, Urine pH 5.5, Ur Specific Ramsey 1.010, Urine Protein Negative, Urine Glucose (UA) Negative, Urine Ketones Negative, Urine Blood 1+, Urine Nitrate Negative, Urine Bilirubin Negative, Urine Urobilinogen 0.2, Ur Leukocyte Esterase Negative, Urine WBC Occasional, Ur Squamous Epith Cells Occasional, Urine Bacteria Trace 12/31/18 19:00: WBC 25.3 H*, RBC 4.30 L, Hgb 12.8 L, Hct 38.7 L, MCV 90.0, MCH 29.8, MCHC 33.1, RDW 13.9, Plt Count 346, MPV 6.5 L, Neut % (Auto) 82.5 H, Lymph % (Auto) 9.0 L, Sutton % (Auto) 7.9, Eos % (Auto) 0.1, Baso % (Auto) 0.5, Neut # (Auto) 20.9 H, Lymph # (Auto) 2.3, Sutton # (Auto) 2.0 H, Eos # (Auto) 0.0, Baso # (Auto) 0.1 12/31/18 19:00: Sodium 118 L, Potassium 5.2 H, Chloride 83 L, Carbon Dioxide 29, Anion Gap 11.2, BUN 25 H, Creatinine 1.17, Estimated Creat Clear 60, Estimated GFR 63, Est GFR ( Amer) 76, Glucose 191 H, Calcium 8.5, Total Bilirubin 0.7, AST 91 H, ALT 35, Alkaline Phosphatase 56, Troponin I 0.09 H, Total Protein 6.3 L, Albumin 2.6 L, Globulin 3.7 H, Albumin/Globulin Ratio 0.7 L, TSH 3.14, Total Valproic Acid 44.3 L 12/31/18 19:00: D-Dimer 616 H* 12/31/18 19:50: Lactate 0.9 Orders (Tests/Meds): ED MEDICATIONS Discontinued Medications Generic Name Dose Route Start Last Admin Trade Name Freq PRN Reason Stop Dose Admin Morphine Sulfate 4 mg 12/31/18 18:58 12/31/18 19:33 Morphine 4mg/Ml Syringe IV 12/31/18 18:59 4 mg ONCE ONE Administration Ondansetron HCl 4 mg 12/31/18 18:58 12/31/18 19:33 Zofran 4mg/2ml Vial IV 12/31/18 18:59 4 mg ONCE ONE Administration ORDERS Category Date Time Status CT head/brain wo con Stat Cat Scan 12/31/18 18:55 Taken Knee XR left 3 views [XR knee LT 3V] Stat Exams 12/31/18 18:56 Taken XR chest portable Stat Exams 12/31/18 18:53 Taken XR shoulder RT min 2V Stat Exams 12/31/18 18:15 Taken B-Type Natriuretic Peptide Stat Lab 12/31/18 19:00 Received Complete Blood Count Auto Diff Stat Lab 12/31/18 19:00 Results - Radiology 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 Granulomatous disease. NAD. (Hang Stewart) Medical Decision Narrative: 8:00 PM: At shift change, I have discussed the patient with Dr. Foster, who will assume care of the patient at this time. I have discussed all clinical information including history, physical and diagnostic study results. Preliminary diagnoses based on information available at this point have been recorded by me. Controlled substance administration and critical care statement are also preliminary, as of the time of handoff. (Hang Stewart) General Adult HPI - General Mode of Arrival: Family Vehicle Limitations: No Limitations Description of Symptoms (Recalled from ER Triage Doc. by RN): patient was recently discharged to residential from hospital yesterday. he was able to get in to his son's vehicle and travel to his home yesterday from the residential because he "couldn't take it anymore"; then stated that he needed to be seen in the hospital this evening because his shoulder still hurts and he is unable to walk. pt further states he has now had an incont episode on himself and "needs to poop". additionally tells staff he hasn't ate all day. <Hang Stewart - Last Filed: 12/31/18 20:04> <Agus Foster - Last Filed: 12/31/18 20:39> - General Chief complaint: Recheck/Abnormal Lab/Rx Stated complaint: right shoulder pain Time Seen by Provider: 12/31/18 18:38 - History of Present Illness HPI narrative: The patient has multiple complaints. Brought in by ambulance. States that he was hospitalized here for dislocated shoulder 12/26-12/30. Discharged to [facility] residential for rehabilitation yesterday. He was only there for a few hours and decided he did not like it and was signed out by his son and brought home. He seemed to do well initially yesterday evening but since then has "gone downhill rapidly" according to his other son and [id number]. He complains of dyspnea on exertion, lightheadedness and dizziness when he stands. Sees spots. He is on meclizine 3 times a day for dizziness, but still gets dizzy. Left knee wants to give out, which is chronic but worsening. Has not had a bowel movement since Friday except for "some small balls" today. Has continued pain in his right shoulder. Family and he want to be checked out for everything. They state that he has a shunt in his head and it has not been checked out in a while and they want it checked. They want his knee checked. They want his shoulder checked. They want him checked out for his lightheadedness, dizziness, seeing spots, and shortness of breath. (Hang Stewart) - Related Data Home Medications Medication Instructions Recorded Confirmed divalproex 500 mg tablet,delayed 1,000 mg PO HS #180 tab 12/15/18 12/31/18 release exenatide ER 2 mg/0.65 mL 2 mg SQ WEEKLY #4 each 12/15/18 12/31/18 subcutaneous pen injector ezetimibe 10 mg tablet 10 mg PO DAILY #90 tab 12/15/18 12/31/18 glimepiride 4 mg tablet 4 mg PO DAILY #90 tab 12/15/18 12/31/18 insulin glargine (U-100) 100 55 units SQ DAILY #10 ml 12/15/18 12/31/18 unit/mL subcutaneous solution levothyroxine 100 mcg tablet 100 mcg PO DAILY #30 tab 12/15/18 12/31/18 meclizine 25 mg tablet 25 mg PO TID #90 tab 12/15/18 12/31/18 niacin ER 500 mg tablet,extended 500 mg PO HS #90 tab 12/15/18 12/31/18 release 24 hr olanzapine 5 mg tablet 5 mg PO DAILY #90 tab 12/15/18 12/31/18 oxybutynin chloride 5 mg tablet 5 mg PO BID #180 tab 12/15/18 12/31/18 pioglitazone 15 mg tablet 15 mg PO DAILY #60 tab 12/15/18 12/31/18 potassium chloride ER 20 mEq 20 meq PO DAILY #90 tab 12/15/18 12/31/18 tablet,extended release(part/cryst) spironolactone 25 mg tablet 25 mg PO DAILY #90 tab 12/15/18 12/31/18 Ascorbic Acid/Ascorbate Sodium 500 mg PO DAILY 12/26/18 12/31/18 [Vitamin C 250 mg Tablet Chew] Aspirin [Aspirin 325mg Tab] 325 mg PO DAILY 12/26/18 12/31/18 Cholecalciferol (Vitamin D3) 1,000 unit PO DAILY 12/26/18 12/31/18 [Vitamin D3 1,000 Unit Cap] Cyanocobalamin (Vitamin B-12) 2,500 mcg SL DAILY 12/26/18 12/31/18 [B-12] Furosemide [Furosemide 40MG tAB] 40 mg PO BID 12/26/18 12/31/18 Previous Rx's Medication Instructions Recorded Hydrocodone/Acetaminophen [Lortab 1 tab PO TIDP PRN #90 tab 12/30/18 7.5/325mg tablet] Allergies Allergy/AdvReac Type Severity Reaction Status Date / Time No Known Drug Allergies Allergy Unknown Verified 12/26/18 12:39 [facility] History - Hepatitis A Screen Drug use history?: No High risk sexual behaviors?: No History of sexually transmitted infection?: No Currently employed?: No Childcare worker?: No Do you have indoor plumbing?: Yes Do you have electricity?: Yes Medical History: Reports:: Diabetes Mellitus Type 2, Hyperlipidemia, Hypertension Denies:: Cancer Other Medical History: Reports: Hypothyroidism Comment: Normal pressure hydrocephalus with a shunt in place. Other Surgeries: Yes: Other Amputation: No Fractures: No - Social History Educational Level: Completed High School Smoking Status: Never smoker Tobacco Type: cigarettes Alcohol Intake: never Substance Use Type: denies use Occupational Status: retired, disabled Housing: house Household Members: spouse Family Hx:: No significant family history <Hnag Stewart - Last Filed: 12/31/18 20:04> - Hepatitis A Screen Attestation statement:: This patient has been screened for Hepatitis A risk factors. ROS Obtained: Yes All systems reviewed & no additional complaints - Constitutional Constitutional: Reports fatigue, Denies fever(s), Reports weakness - Cardiovascular Cardiovascular: Denies chest pain - Respiratory Respiratory: No cough, Yes dyspnea on exertion - Gastrointestinal Gastrointestingal: Reports: constipation. Denies: abdominal pain, vomiting - Musculoskeletal Musculoskeletal: Reports as per HPI - Neurologic Neurologic: Reports dizziness, Denies focal weakness, Denies headache(s) <Hang Stewart - Last Filed: 12/31/18 20:04> Physical Exam - General General appearance: alert, in no apparent distress - Head Head exam: atraumatic, normocephalic - Eye Eye exam: Present: normal appearance, EOMI - ENT ENT exam: Present: mucous membranes moist - Neck Neck exam: Present: normal inspection, full ROM, trachea midline - Chest Chest inspection: Present: normal inspection, symmetric chest wall rise - Respiratory Respiratory exam: Present: normal lung sounds bilaterally. Absent: respiratory distress - Cardiovascular Cardiovascular exam: Present: regular rate, normal rhythm, normal heart sounds - Abdominal Exam Abdominal exam: Present: soft, normal bowel sounds. Absent: distention, tenderness - Extremities Exam Extremities exam: Present: normal capillary refill - Neurological Exam Neurological exam: Present: alert, oriented X3, CN II-XII intact. Absent: motor sensory deficit - Psychiatric Psychiatric exam: Present: normal affect, normal mood - Skin Skin exam: Present: warm, dry <Hang Stewart - Last Filed: 12/31/18 20:04> - Other Other exam information: Restricted motion left shoulder due to pain. Distal neurovascular status intact. No deformity. Left knee shows generalized edema. No erythema. No deformity. Distal neurovascular status intact. (Hang Stewart)
[2018-12-31 18:58] LABS: Bacteria,Urine Trace /lpf; Squamous Epithelial Cell,Urine Occasional #/hpf (0-5); WBC,Urine Occasional #/hpf (0-3)
[2018-12-31 19:14] LABS: Basophils # 0.1 K/mm3 (0-0.2); Basophils % 0.5 % (0.1-2.0); Eosinophils % 0.1 % (0.1-12.0); Hematocrit 38.7 % (42.0-52.0); Hemoglobin 12.8 g/dL (14.1-18.0); Lymphocytes # 2.3 K/mm3 (0.7-4.5); Mean Corpuscular HGB Conc 33.1 g/dL (31.8-35.4); Mean Platelet Volume 6.5 fl (7.4-10.4); Monocytes % 7.9 % (1.7-9.3); Neutrophils # 20.9 K/mm3 (1.8-7.8); Neutrophils % 82.5 % (37.0-80.0); Platelet Count 346 K/mm3 (142-424); Red Cell Distribution Width 13.9 % (11.5-17.5); White Blood Count 25.3 K/mm3 (4.8-10.8)
[2018-12-31 20:25] LABS: Albumin Level 2.6 gm/dL (3.4-5.0); Albumin/Globulin Ratio 0.7 (1.1-1.8); Anion Gap 11.2 mEq/L (5-15); Bilirubin,Total 0.7 mg/dL (0.2-1.0); Calcium 8.5 mg/dL (8.5-10.1); Globulin 3.7 gm/dl (1.3-3.2); Thyroid Stimulating Hormone 3.14 uIU/ml (0.358-3.740); Total Protein,Serum 6.3 gm/dL (6.4-8.2)
[2018-12-31 20:57] LABS: Lymphocytes % 15 % (10-50); Monocytes % 4 % (2-9); Neutrophils % 81 % (42-76); RBC Morphology Normal; Total Cells Counted 100
--- NOTE | 2019-01-01 07:34 | Pharmacy Consult Notes ---
[facility] Pharmacy VTE Monitoring - Patient Demographics Admission date: 12/31/18 Report Date: 01/01/19 Time: 07:33 Allergies/Adverse Reactions: Patient Allergies No Known Drug Allergies Allergy (Unknown, Verified 12/26/18 12:39) Height: 1.83 m Weight: 161.4 kg Patient Problems: Current Active Problems Leukocytosis (Acute) Dyspnea (Acute) - VTE Risk Labs: VTE Related Lab Results Hgb 12.8 g/dL (14.1-18.0) L 12/31/18 19:00 Hct 38.7 % (42.0-52.0) L 12/31/18 19:00 Plt Count 346 K/mm3 (142-424) 12/31/18 19:00 BUN 25 mg/dL (7-18) H 12/31/18 19:00 Creatinine 1.17 mg/dL (0.70-1.30) 12/31/18 19:00 Estimated Creat Clear 60 mL/min (50-200) 12/31/18 19:00 Was VTE Risk Assessment Performed: Yes VTE Score: 6 VTE Risk Level: Moderate Risk - Prophylaxis VTE Prophylaxis Ordered?: Yes Types of VTE Prophylaxis: TEDS Knee High Location of Applied Device: Bilateral Lower Extremeties - VTE Diagnosis Confirmed Treatment or plan recommended: Continue Current Treatment
--- NOTE | 2019-01-01 08:16 | History & Physical Report ---
*Admission Date: 12/31/18 *Chief complaint: debility, weakness *History of present illness: Mr. Davis is a 63-year-old male who was just discharged from [facility] after an admission for shoulder dislocation. He was discharged to [facility] for rehab and his son states when they walk in the facility they could not leave him there, so they left. They ended up taking him home and he was able to move about his house with a walker and some assistance up until last night when he began getting very weak. He was unable to walk and was therefore brought back to the emergency room for evaluation. While in the ER his white blood cell count was found to be elevated. His family states he had an episode in the ER where his oxygen dropped and he turned blue. They were worried he was having a seizure. He had a head CT and a chest x-ray showing nothing acute. He had a knee x-ray showing mild osteoarthritis and a shoulder x-ray showing severe subacromial stenosis with mild osteoarthritis. His white blood cell count was 25,000 and his d-dimer was elevated at 616. His sodium was low at 118 and his potassium was elevated at 5.2. His troponin was mildly elevated as well. His valproic acid level was low. He was admitted for further evaluation and treatment. [facility] History I have reviewed the patient's past medical history: Yes Medical History: Reports:: Diabetes Mellitus Type 2, Hyperlipidemia, Hypertension Denies:: Cancer *Have you ever received a pneumonia vaccine?: Yes *Have you received a flu vaccine this season?: Yes Other Medical History: Reports: Hypothyroidism Laterality Cases: Right: Other Other Surgeries: Yes: Other Amputation: No Fractures: No - *Social History Educational Level: Completed High School Smoking Status: Former smoker Tobacco Type: cigarettes # Packs/Day (cigarettes): 2 #Yrs smoked (if former smoker): 1 Alcohol Intake: never Substance Use Type: denies use *Occupational Status:: retired, disabled Housing: house Household Members: spouse *Travel in the last 8 weeks: None - Psychiatric History Expresses thoughts of harming self/others: None Suicide Plan Description: No Plan Family Hx:: No significant family history Review of Systems - Constitutional Reports chills, Reports malaise, Reports weakness, Denies fever(s) - Eyes Denies blurry vision, Denies double vision - ENT Denies nasal congestion, Denies sore throat - *Cardiovascular Reports shortness of breath, Denies chest pain, Denies rapid, pounding, or irregular heartbeat - *Respiratory Reports shortness of breath, Denies cough - *Gastrointestinal Reports constipation, Reports nausea, Denies abdominal pain, Denies loose stools - *Genitourinary Denies difficulty urinating, Denies painful urination - *Musculoskeletal Reports muscle weakness, Denies joint pain - *Neurologic Reports dizziness, Reports weakness, Denies localized weakness, Denies headache(s) Meds Home Medications Medication Instructions Recorded Confirmed Type divalproex 500 mg tablet,delayed 1,000 mg PO HS #180 tab 12/15/18 12/31/18 History release exenatide ER 2 mg/0.65 mL 2 mg SQ WEEKLY #4 each 12/15/18 12/31/18 History subcutaneous pen injector ezetimibe 10 mg tablet 10 mg PO DAILY #90 tab 12/15/18 12/31/18 History glimepiride 4 mg tablet 4 mg PO DAILY #90 tab 12/15/18 12/31/18 History insulin glargine (U-100) 100 55 units SQ DAILY #10 ml 12/15/18 12/31/18 History unit/mL subcutaneous solution levothyroxine 100 mcg tablet 100 mcg PO DAILY #30 tab 12/15/18 12/31/18 History meclizine 25 mg tablet 25 mg PO TID #90 tab 12/15/18 12/31/18 History niacin ER 500 mg tablet,extended 500 mg PO HS #90 tab 12/15/18 12/31/18 History release 24 hr olanzapine 5 mg tablet 5 mg PO DAILY #90 tab 12/15/18 12/31/18 History oxybutynin chloride 5 mg tablet 5 mg PO BID #180 tab 12/15/18 12/31/18 History pioglitazone 15 mg tablet 15 mg PO DAILY #60 tab 12/15/18 12/31/18 History potassium chloride ER 20 mEq 20 meq PO DAILY #90 tab 12/15/18 12/31/18 History tablet,extended release(part/cryst) spironolactone 25 mg tablet 25 mg PO DAILY #90 tab 12/15/18 12/31/18 History Ascorbic Acid/Ascorbate Sodium 500 mg PO DAILY 12/26/18 12/31/18 History [Vitamin C 250 mg Tablet Chew] Aspirin [Aspirin 325mg Tab] 325 mg PO DAILY 12/26/18 12/31/18 History Cholecalciferol (Vitamin D3) 1,000 unit PO DAILY 12/26/18 12/31/18 History [Vitamin D3 1,000 Unit Cap] Cyanocobalamin (Vitamin B-12) 2,500 mcg SL DAILY 12/26/18 12/31/18 History [B-12] Furosemide [Furosemide 40MG tAB] 40 mg PO BID 12/26/18 12/31/18 History Hydrocodone/Acetaminophen [Lortab 1 tab PO TIDP PRN #90 tab 12/30/18 12/31/18 Rx 7.5/325mg tablet] Allergies Allergy/AdvReac Type Severity Reaction Status Date / Time No Known Drug Allergies Allergy Unknown Verified 12/26/18 12:39 Exam Vital signs and Labs for Last 24 Hours: Temp Pulse Resp BP Pulse Ox 97.9 F 95 H 18 168/89 H 97 01/01/19 07:53 01/01/19 07:53 01/01/19 07:53 01/01/19 07:53 01/01/19 07:53 Laboratory Results - last 24 hr 12/31/18 18:13: Urine Color Yellow, Urine Appearance Clear, Urine pH 5.5, Ur Specific [place] 1.010, Urine Protein Negative, Urine Glucose (UA) Negative, Urine Ketones Negative, Urine Blood 1+, Urine Nitrate Negative, Urine Bilirubin Negative, Urine Urobilinogen 0.2, Ur Leukocyte Esterase Negative, Urine WBC Occasional, Ur Squamous Epith Cells Occasional, Urine Bacteria Trace 12/31/18 19:00: WBC 25.3 H*, RBC 4.30 L, Hgb 12.8 L, Hct 38.7 L, MCV 90.0, MCH 29.8, MCHC 33.1, RDW 13.9, Plt Count 346, MPV 6.5 L, Neut % (Auto) 82.5 H, Lymph % (Auto) 9.0 L, [place] % (Auto) 7.9, Eos % (Auto) 0.1, Baso % (Auto) 0.5, Neut # (Auto) 20.9 H, Lymph # (Auto) 2.3, [place] # (Auto) 2.0 H, Eos # (Auto) 0.0, Baso # (Auto) 0.1, Total Counted 100, Neutrophils % (Manual) 81 H, Lymphocytes % (Manual) 15, Monocytes % (Manual) 4, Platelet Estimate Normal, RBC Morphology Normal 12/31/18 19:00: Sodium 118 L, Potassium 5.2 H, Chloride 83 L, Carbon Dioxide 29, Anion Gap 11.2, BUN 25 H, Creatinine 1.17, Estimated Creat Clear 60, Estimated GFR 63, Est GFR ( Amer) 76, Glucose 191 H, Calcium 8.5, Total Bilirubin 0.7, AST 91 H, ALT 35, Alkaline Phosphatase 56, Troponin I 0.09 H, Total Protein 6.3 L, Albumin 2.6 L, Globulin 3.7 H, Albumin/Globulin Ratio 0.7 L, TSH 3.14, Total Valproic Acid 44.3 L 12/31/18 19:00: D-Dimer 616 H* 12/31/18 19:00: B-Natriuretic Peptide 8 12/31/18 19:50: Lactate 0.9 12/31/18 21:15: POC Glucose 180 H 01/01/19 06:11: POC Glucose 174 H I & O for Last 24 hours: Intake & Output 12/29/18 12/30/18 12/31/18 01/01/19 11:59 11:59 11:59 11:59 Intake Total 762 / 762 Output Total 1400 / 1400 Balance -638 / -638 Weight 355 lb 13.217 oz - Constitutional no acute distress - *Routine HEENT Exam Head: Present: normocephalic Eye: Present: EOMI, PERRL ENT: Present: mucous membranes dry - *Routine Neck Exam Present: supple. Absent: lymphadenopathy - *Routine Respiratory Exam Present: CTA bilaterally, distant breath sounds - *Routine Cardiovascular Exam Present: RRR - *Routine Abdominal Exam Present: soft, normoactive bowel sounds. Absent: tenderness - *Routine Extremities Exam Present: edema (bilateral LE's). Absent: cyanosis, clubbing - *Routine Skin Exam Present: warm. Absent: rash - *Routine Neurological Exam Present: alert, oriented X3 H&P: Result - Impressions Right shoulder x-ray - Severe subacromial stenosis with mild osteoarthritis CXR - nothing acute Head CT - No change with no acute finding. [employer] shunt present with no change in the size of the ventricles which are mildly prominent compared to the previous exam Left knee x-ray - Mild osteoarthritis Assessment and Plan (1) Dyspnea Current visit: Yes Status: Acute Qualifiers: Dyspnea type: dyspnea on exertion Qualified Code(s): R06.09 - Other forms of dyspnea Category: Medical Code(s): R06.00 - Dyspnea, unspecified (2) Elevated d-dimer Current visit: Yes Status: Acute Category: Medical Code(s): R79.89 - Other specified abnormal findings of blood chemistry (3) Elevated troponin Current visit: Yes Status: Acute Category: Medical Code(s): R74.8 - Abnormal levels of other serum enzymes (4) Hyponatremia Current visit: Yes Status: Acute Category: Medical Code(s): E87.1 - Hypo- osmolality and hyponatremia (5) Hyperkalemia Current visit: Yes Status: Acute Category: Medical Code(s): E87.5 - Hyperkalemia (6) Leukocytosis Current visit: Yes Status: Acute Qualifiers: Leukocytosis type: unspecified Qualified Code(s): D72.829 - Elevated white blood cell count, unspecified Category: Medical Code(s): D72.829 - Elevated white blood cell count, unspecified (7) Debility Current visit: No Status: Acute Category: Medical Code(s): R53.81 - Other malaise (8) Dislocation of shoulder, anterior, right, closed Current visit: No Status: Acute Qualifiers: Encounter type: initial encounter Qualified Code(s): S43.014A - Anterior dislocation of right humerus, initial encounter Category: Medical Code(s): S43.014A - Anterior dislocation of right humerus, initial encounter (9) Obesity, Class III, BMI 40-49.9 (morbid obesity) Current visit: No Status: Chronic Category: Medical Code(s): E66.01 - Morbid (severe) obesity due to excess calories (10) Anxiety disorder Current visit: No Status: Chronic Category: Medical Code(s): F41.9 - Anxiety disorder, unspecified (11) Diabetes mellitus Current visit: No Status: Chronic Category: Medical Code(s): E11.9 - Type 2 diabetes mellitus without complications (12) Hypothyroidism Current visit: No Status: Chronic Category: Medical Code(s): E03.9 - Hypothyroidism, unspecified (13) Normal pressure hydrocephalus Current visit: No Status: Chronic Category: Medical Code(s): G91.2 - (Idiopathic) normal pressure hydrocephalus (14) Ventriculo-peritoneal shunt status Current visit: No Status: Chronic Category: Surgical Code(s): Z98.2 - Presence of cerebrospinal fluid drainage device - Assessment and plan all Dx Assessment and Plan for all problems:: Patient's white blood cell count is elevated and he has not been started on antibiotics. Will discuss this with Dr. Sierra. As of now there is no obvious source of infection but his blood cultures are still pending. His troponin was elevated, therefore will consult cardiology. We will get repeat labs this morning his electrolytes were abnormal. His d-dimer was elevated as well and there was no CTA done in the emergency room. Will discuss this with Dr. sierra as well.
[2019-01-01 08:59] LABS: Basophils # 0.1 K/mm3 (0-0.2); Basophils % 0.4 % (0.1-2.0); Eosinophils % 0.1 % (0.1-12.0); Hematocrit 37.9 % (42.0-52.0); Hemoglobin 12.3 g/dL (14.1-18.0); Lymphocytes % 8.9 % (10-50); Mean Corpuscular HGB Conc 32.5 g/dL (31.8-35.4); Mean Platelet Volume 6.5 fl (7.4-10.4); Monocytes # 2.3 K/mm3 (0.1-1.0); Monocytes % 10.6 % (1.7-9.3); Neutrophils # 17.7 K/mm3 (1.8-7.8); Platelet Count 307 K/mm3 (142-424); Red Blood Count 4.16 M/mm3 (4.60-6.20); Red Cell Distribution Width 13.9 % (11.5-17.5); White Blood Count 22.1 K/mm3 (4.8-10.8)
[2019-01-01 09:20] LABS: Albumin Level 2.5 gm/dL (3.4-5.0); Albumin/Globulin Ratio 0.7 (1.1-1.8); Anion Gap 9.3 mEq/L (5-15); Bilirubin,Total 0.7 mg/dL (0.2-1.0); Globulin 3.7 gm/dl (1.3-3.2); Total Protein,Serum 6.2 gm/dL (6.4-8.2)
[2019-01-01 09:42] LABS: Lymphocytes % 15 % (10-50); Monocytes % 11 % (2-9); Neutrophils % 72 % (42-76); RBC Morphology Normal; Total Cells Counted 100
--- NOTE | 2019-01-01 11:40 | Consult Report ---
History of Present Illness Consult date: 01/01/19 Requesting physician: Niels Corona Consult reason: shortness of breath Chief complaint: Dyspnea, Elevated troponin, Elevated d-dimer Additional Medical History:: 1. DM, treated for many years 2. Normal pressure hydrocephalus A. Right side ventriculoperitoneal shunt 3. Obesity 4. HTN 5. Hyperlipidemia History of present illness: Mr. Davis is a 63-year-old male who was just discharged from [facility] after an admission for shoulder dislocation. He was discharged to [facility] for rehab and his son states when they walked in the facility they could not leave him there, so they left. They ended up taking him home and he was able to move about his house with a walker and some assistance up until last night when he began getting very weak. He was unable to walk and was therefore brought back to the emergency room for evaluation. While in the ER his white blood cell count was found to be elevated. His family states he had an episode in the ER where his oxygen dropped and he turned blue. They were worried he was having a seizure. He had a head CT and a chest x-ray showing nothing acute. He had a knee x-ray showing mild osteoarthritis and a shoulder x-ray showing severe subacromial stenosis with mild osteoarthritis. His white blood cell count was 25,000 and his d-dimer was elevated at 616. His sodium was low at 118 and his potassium was elevated at 5.2. His troponin was mildly elevated as well. His valproic acid level was low. He was admitted for further evaluation and treatment The above per Wendy Christianson PA-C for Dr. Corona. Cardiology consulted for elevated troponin in a diabetic patient with complaint of dyspnea. This a.m. the patient is in bed in no acute distress. Multiple family members are present. Patient denies any chest pain, pressure or tightness at this time. EKG is pending at this time. No previous cardiac history noted. Family members relate that the patient became weak during the day with notable decrease in ability to ambulate from morning to evening. While in the ER reportedly his oxygen saturation dropped down to "17" at which time he turned blue and had seizure-like activity with tremors of his arms, hands, legs and feet. [facility] History Medical History: Reports:: Diabetes Mellitus Type 2, Hyperlipidemia, Hypertension Denies:: Cancer *Have you ever received a pneumonia vaccine?: Yes *Have you received a flu vaccine this season?: Yes Other Medical History: Reports: Hypothyroidism Laterality Cases: Right: Other Other Surgeries: Yes: Other Amputation: No Fractures: No - *Social History Educational Level: Completed High School Smoking Status: Former smoker Tobacco Type: cigarettes # Packs/Day (cigarettes): 2 #Yrs smoked (if former smoker): 1 Alcohol Intake: never Substance Use Type: denies use *Occupational Status:: retired, disabled Housing: house Household Members: spouse *Travel in the last 8 weeks: None - Psychiatric History Expresses thoughts of harming self/others: None Suicide Plan Description: No Plan Family Hx:: No significant family history Meds Home Medications Medication Instructions Recorded Confirmed Type divalproex 500 mg tablet,delayed 1,000 mg PO HS #180 tab 12/15/18 12/31/18 History release exenatide ER 2 mg/0.65 mL 2 mg SQ WEEKLY #4 each 12/15/18 12/31/18 History subcutaneous pen injector ezetimibe 10 mg tablet 10 mg PO 1200 #90 tab 12/15/18 01/01/19 History glimepiride 4 mg tablet 4 mg PO DAILY #90 tab 12/15/18 12/31/18 History insulin glargine (U-100) 100 55 units SQ DAILY #10 ml 12/15/18 12/31/18 History unit/mL subcutaneous solution levothyroxine 100 mcg tablet 100 mcg PO DAILY #30 tab 12/15/18 12/31/18 History meclizine 25 mg tablet 25 mg PO TID #90 tab 12/15/18 12/31/18 History niacin ER 500 mg tablet,extended 500 mg PO HS #90 tab 12/15/18 12/31/18 History release 24 hr olanzapine 5 mg tablet 5 mg PO HS #90 tab 12/15/18 01/01/19 History oxybutynin chloride 5 mg tablet 5 mg PO 0900,1700 #180 tab 12/15/18 01/01/19 History pioglitazone 15 mg tablet 15 mg PO DAILY #60 tab 12/15/18 12/31/18 History potassium chloride ER 20 mEq 20 meq PO DAILY #90 tab 12/15/18 12/31/18 History tablet,extended release(part/cryst) spironolactone 25 mg tablet 25 mg PO 1700 #90 tab 12/15/18 01/01/19 History Ascorbic Acid/Ascorbate Sodium 500 mg PO DAILY 12/26/18 12/31/18 History [Vitamin C 250 mg Tablet Chew] Aspirin [Aspirin 325mg Tab] 325 mg PO HS 12/26/18 01/01/19 History Cholecalciferol (Vitamin D3) 1,000 unit PO DAILY 12/26/18 12/31/18 History [Vitamin D3 1,000 Unit Cap] Cyanocobalamin (Vitamin B-12) 2,500 mcg SL DAILY 12/26/18 12/31/18 History [B-12] Furosemide [Furosemide 40MG tAB] 40 mg PO 0900,1200 12/26/18 01/01/19 History Hydrocodone/Acetaminophen [Lortab 1 tab PO TIDP PRN #90 tab 12/30/18 12/31/18 Rx 7.5/325mg tablet] Allergies Allergy/AdvReac Type Severity Reaction Status Date / Time No Known Drug Allergies Allergy Unknown Verified 12/26/18 12:39 Review of Systems - Constitutional Reports fatigue, Reports weakness - *Cardiovascular Reports shortness of breath, Reports shortness of breath with activity, Denies chest pain - *Respiratory Reports shortness of breath, Reports shortness of breath with activity, Denies cough, Denies wheezing - *Gastrointestinal Reports loose stools, Denies abdominal pain - *Genitourinary Denies blood in urine - *Musculoskeletal Reports joint pain, Denies back pain - *Neurologic Reports dizziness, Reports weakness, Denies localized weakness, Denies headache(s) Exam Vital signs and Labs for Last 24 Hours: Temp Pulse Resp BP Pulse Ox 97.9 F 95 H 18 168/89 H 97 01/01/19 07:53 01/01/19 07:53 01/01/19 07:53 01/01/19 07:53 01/01/19 08:39 Laboratory Results - last 24 hr 12/31/18 18:13: Urine Color Yellow, Urine Appearance Clear, Urine pH 5.5, Ur Specific [place] 1.010, Urine Protein Negative, Urine Glucose (UA) Negative, Urine Ketones Negative, Urine Blood 1+, Urine Nitrate Negative, Urine Bilirubin Negative, Urine Urobilinogen 0.2, Ur Leukocyte Esterase Negative, Urine WBC Occasional, Ur Squamous Epith Cells Occasional, Urine Bacteria Trace 12/31/18 19:00: WBC 25.3 H*, RBC 4.30 L, Hgb 12.8 L, Hct 38.7 L, MCV 90.0, MCH 29.8, MCHC 33.1, RDW 13.9, Plt Count 346, MPV 6.5 L, Neut % (Auto) 82.5 H, Lymph % (Auto) 9.0 L, [place] % (Auto) 7.9, Eos % (Auto) 0.1, Baso % (Auto) 0.5, Neut # (Auto) 20.9 H, Lymph # (Auto) 2.3, [place] # (Auto) 2.0 H, Eos # (Auto) 0.0, Baso # (Auto) 0.1, Total Counted 100, Neutrophils % (Manual) 81 H, Lymphocytes % (M anual) 15, Monocytes % (Manual) 4, Platelet Estimate Normal, RBC Morphology Normal 12/31/18 19:00: Sodium 118 L, Potassium 5.2 H, Chloride 83 L, Carbon Dioxide 29, Anion Gap 11.2, BUN 25 H, Creatinine 1.17, Estimated Creat Clear 60, Estimated GFR 63, Est GFR ( Amer) 76, Glucose 191 H, Calcium 8.5, Total Bilirubin 0.7, AST 91 H, ALT 35, Alkaline Phosphatase 56, Troponin I 0.09 H, Total Protein 6.3 L, Albumin 2.6 L, Globulin 3.7 H, Albumin/Globulin Ratio 0.7 L, TSH 3.14, Total Valproic Acid 44.3 L 12/31/18 19:00: D-Dimer 616 H* 12/31/18 19:00: B-Natriuretic Peptide 8 12/31/18 19:50: Lactate 0.9 12/31/18 21:15: POC Glucose 180 H 01/01/19 06:11: POC Glucose 174 H 01/01/19 08:48: WBC 22.1 H*, RBC 4.16 L, Hgb 12.3 L, Hct 37.9 L, MCV 91.0, MCH 29.6, MCHC 32.5, RDW 13.9, Plt Count 307, MPV 6.5 L, Neut % (Auto) 80.0, Lymph % (Auto) 8.9 L, [place] % (Auto) 10.6 H, Eos % (Auto) 0.1, Baso % (Auto) 0.4, Neut # (Auto) 17.7 H, Lymph # (Auto) 2.0, [place] # (Auto) 2.3 H, Eos # (Auto) 0.0, Baso # (Auto) 0.1, Total Counted 100, Neutrophils % (Manual) 72, Lymphocytes % (Manual) 15, Monocytes % (Manual) 11 H, Metamyelocytes % 2.0 H, Platelet Estimate Normal, RBC Morphology Normal 01/01/19 08:48: Sodium 116 L, Potassium 4.3, Chloride 80 L, Carbon Dioxide 31, Anion Gap 9.3, BUN 23 H, Creatinine 1.17, Estimated Creat Clear 70, Estimated GFR 63, Est GFR ( Amer) 76, Glucose 285 H D, Calcium 8.0 L, Total Bilirubin 0.7, AST 66 H D, ALT 35, Alkaline Phosphatase 64, Total Protein 6.2 L, Albumin 2.5 L, Globulin 3.7 H, Albumin/Globulin Ratio 0.7 L I & O for Last 24 hours: Intake & Output 12/29/18 12/30/18 12/31/18 01/01/19 11:59 11:59 11:59 11:59 Intake Total 762 / 762 Output Total 3900 / 3900 Balance -3138 / -3138 Weight 355 lb 13.217 oz - Constitutional no acute distress, morbidly obese - *Routine HEENT Exam Head: Present: normocephalic Eye: Present: EOMI, PERRL ENT: Present: mucous membranes moist - *Routine Respiratory Exam Present: decreased breath sounds, CTA bilaterally. Absent: accessory muscle use, rales, rhonchi, wheezes - *Routine Cardiovascular Exam Present: RRR. Absent: murmur, gallop, rubs - *Routine Abdominal Exam Present: soft, normoactive bowel sounds. Absent: tenderness, distended, guarding - *Routine Extremities Exam Present: edema. Absent: calf tenderness - *Routine Neurological Exam Present: alert, oriented X3, moving all extremities Assessment and Plan (1) Dyspnea Current visit: Yes Status: Acute Qualifiers: Dyspnea type: dyspnea on exertion Qualified Code(s): R06.09 - Other forms of dyspnea Category: Medical Code(s): R06.00 - Dyspnea, unspecified (2) Elevated d-dimer Current visit: Yes Status: Acute Category: Medical Code(s): R79.89 - Other specified abnormal findings of blood chemistry (3) Elevated troponin Current visit: Yes Status: Acute Category: Medical Code(s): R74.8 - Abnormal levels of other serum enzymes (4) Hyponatremia Current visit: Yes Status: Acute Category: Medical Code(s): E87.1 - Hypo- osmolality and hyponatremia (5) Hyperkalemia Current visit: Yes Status: Acute Category: Medical Code(s): E87.5 - Hyperkalemia (6) Leukocytosis Current visit: Yes Status: Acute Qualifiers: Leukocytosis type: unspecified Qualified Code(s): D72.829 - Elevated white blood cell count, unspecified Category: Medical Code(s): D72.829 - Elevated white blood cell count, unspecified (7) Debility Current visit: No Status: Acute Category: Medical Code(s): R53.81 - Other malaise (8) Dislocation of shoulder, anterior, right, closed Current visit: No Status: Acute Qualifiers: Encounter type: initial encounter Qualified Code(s): S43.014A - Anterior dislocation of right humerus, initial encounter Category: Medical Code(s): S43.014A - Anterior dislocation of right humerus, initial encounter (9) Obesity, Class III, BMI 40-49.9 (morbid obesity) Current visit: No Status: Chronic Category: Medical Code(s): E66.01 - Morbid (severe) obesity due to excess calories (10) Anxiety disorder Current visit: No Status: Chronic Category: Medical Code(s): F41.9 - Anxiety disorder, unspecified (11) Diabetes mellitus Current visit: No Status: Chronic Category: Medical Code(s): E11.9 - Type 2 diabetes mellitus without complications (12) Hypothyroidism Current visit: No Status: Chronic Category: Medical Code(s): E03.9 - Hypothyroidism, unspecified (13) Normal pressure hydrocephalus Current visit: No Status: Chronic Category: Medical Code(s): G91.2 - (Idiopathic) normal pressure hydrocephalus (14) Ventriculo-peritoneal shunt status Current visit: No Status: Chronic Category: Surgical Code(s): Z98.2 - Presence of cerebrospinal fluid drainage device - Assessment and plan all Dx Assessment and Plan for all problems:: 1. In light of the complaint of dyspnea with elevated troponin in a diabetic patient, will obtain an echocardiogram to evaluate left ventricular size and function. We will repeat troponin but with chest x-ray showing no evidence of heart failure and BNP within normal limits, I suspect that the elevated troponin is indicative of a strain pattern related to the patient's dyspnea. 2. In light of the dyspnea with elevated d-dimer, morbid obesity and decreased activity, consideration for pulmonary embolus is high on the list. Patient will have a CT of the chest to rule out pulmonary embolus. Would also recommend lower extremity venous Dopplers to evaluate for DVT. 3. Hyponatremia with possible seizure activity, etiology uncertain. 4. Hyperkalemia, repeat potassium was within normal limits.
--- NOTE | 2019-01-01 16:05 | Cardiology Report ---
APPROVED REPORT Bilateral Lower Extremity Venous Study for DVT. Municipal Engineer: THANIA Indications Shortness of breath Lower Extremity Swelling: elevated d-dimer, dyspnea, LE edema Vein Imaging SFJ (R): Compressible FEM (R): Compressible POP (R): Compressible GSV (R): Compressible SFJ (L): Compressible FEM (L): Compressible POP (L): Compressible GSV (L): Compressible Findings No evidence of DVT or superficial thrombophlebitis in the veins scanned of the right lower extremity. No evidence of DVT or superficial thrombophlebitis in the veins scanned of the left lower extremity. Limited exam secondary to morbid obesity difficult to image bilateral lower extremities. Electronically signed by : Marvin Espinoza MD 01/01/2019 16:05:09
--- NOTE | 2019-01-01 17:20 | Electrocardiograph Report ---
APPROVED REPORT Exam: Resting ECG HR:87 bpm ECG Measurements Heart Rate 87 AXES AR 164 P 46 QRSd 92 QRS -22 QT 356 T14 QTc 428 <Conclusion> Normal sinus rhythm Incomplete right bundle branch block,Poor R Wave Progression Left Bassett Deviation Abnormal ECG Electronically signed by : Jamey Vega, 01/01/2019 17:20:13
--- NOTE | 2019-01-01 18:28 | Procedure Note ---
[facility] Procedure Note Procedure Note:: Procedure: Central line placement (8 [place] triple-lumen catheter placed in left subclavian vein) Indications: Inadequate venous access; leukocytosis; weakness Anesthesia: 1% lidocaine Prep: Chlorhexidine Description: After informed consent was obtained the patient was maintained in the supine position. His left chest and neck were prepped and draped in a sterile fashion. He was then transferred to a somewhat Trendelenburg position. After infiltration of local anesthetic a large-bore needle was utilized to access the left subclavian vein. Utilizing a Seldinger technique an 8 [place] triple-lumen catheter was placed in position and secured at 19 cm. All ports flushed without difficulty. Estimated blood loss: 1 mL Complications: No immediate. Chest x-ray is pending.
[2019-01-02 07:41] LABS: Basophils # 0.1 K/mm3 (0-0.2); Basophils % 0.3 % (0.1-2.0); Hematocrit 38.6 % (42.0-52.0); Lymphocytes # 2.2 K/mm3 (0.7-4.5); Mean Corpuscular HGB Conc 31.2 g/dL (31.8-35.4); Mean Corpuscular Volume 91.1 fl (80-94); Monocytes # 2.1 K/mm3 (0.1-1.0); Monocytes % 8.7 % (1.7-9.3); Neutrophils # 19.7 K/mm3 (1.8-7.8); Neutrophils % 81.9 % (37.0-80.0); Platelet Count 357 K/mm3 (142-424); Red Blood Count 4.23 M/mm3 (4.60-6.20); Red Cell Distribution Width 13.8 % (11.5-17.5); White Blood Count 24.1 K/mm3 (4.8-10.8)
[2019-01-02 07:57] LABS: Albumin Level 2.5 gm/dL (3.4-5.0); Albumin/Globulin Ratio 0.7 (1.1-1.8); Anion Gap 6.8 mEq/L (5-15); Bilirubin,Total 0.4 mg/dL (0.2-1.0); Calcium 8.7 mg/dL (8.5-10.1); Globulin 3.8 gm/dl (1.3-3.2); Total Protein,Serum 6.3 gm/dL (6.4-8.2)
[2019-01-02 08:05] LABS: Lymphocytes % 4 % (10-50); Monocytes % 10 % (2-9); Neutrophils % 83 % (42-76); Nucleated Red Blood Cells 1; Total Cells Counted 100
[2019-01-02 08:06] LABS: RBC Morphology Normal
--- NOTE | 2019-01-02 09:20 | Progress Note ---
Internal Medicine - PN: Subj *Date: 01/02/19 *Time: 09:18 Interval history: He remains clinically stable. White blood cell count remains elevated with etiology unknown. Blood cultures and urine cultures are pending. Exam Vital signs and Labs for Last 24 Hours: Temp Pulse Resp BP Pulse Ox 98.1 F 95 H 18 141/62 H 94 L 01/02/19 08:00 01/02/19 08:00 01/02/19 08:00 01/02/19 08:00 01/02/19 08:00 Laboratory Results - last 24 hr 01/01/19 08:48: Total Counted 100, Neutrophils % (Manual) 72, Lymphocytes % (Manual) 15, Monocytes % (Manual) 11 H, Metamyelocytes % 2.0 H, Platelet Estimate Normal, RBC Morphology Normal 01/01/19 08:48: Sodium 116 L, Potassium 4.3, Chloride 80 L, Carbon Dioxide 31, Anion Gap 9.3, BUN 23 H, Creatinine 1.17, Estimated Creat Clear 70, Estimated GFR 63, Est GFR ( Amer) 76, Glucose 285 H D, Calcium 8.0 L, Total Bilirubin 0.7, AST 66 H D, ALT 35, Alkaline Phosphatase 64, Total Protein 6.2 L, Albumin 2.5 L, Globulin 3.7 H, Albumin/Globulin Ratio 0.7 L 01/01/19 08:48: Troponin I 0.14 H 01/01/19 11:50: POC Glucose 297 H 01/01/19 15:53: POC Glucose 267 H 01/01/19 21:20: POC Glucose 325 H* 01/02/19 05:47: POC Glucose 202 H 01/02/19 07:18: WBC 24.1 H*, RBC 4.23 L, Hgb 12.0 L, Hct 38.6 L, MCV 91.1, MCH 28.4, MCHC 31.2 L, RDW 13.8, Plt Count 357, MPV 7.0 L, Neut % (Auto) 81.9 H, Lymph % (Auto) 9.0 L, [place] % (Auto) 8.7, Eos % (Auto) 0.0 L, Baso % (Auto) 0.3, Neut # (Auto) 19.7 H, Lymph # (Auto) 2.2, [place] # (Auto) 2.1 H, Eos # (Auto) 0.0, Baso # (Auto) 0.1, Total Counted 100, Neutrophils % (Manual) 83 H, Band Neutrophils % 2.0, Lymphocytes % (Manual) 4 L, Atypical Lymphs % 1.0, Monocytes % (Manual) 10 H, Nucleated RBCs 1, Platelet Estimate Normal, RBC Morphology Normal 01/02/19 07:18: Sodium 121 L, Potassium 4.8, Chloride 84 L, Carbon Dioxide 35 H, Anion Gap 6.8, BUN 23 H, Creatinine 1.05, Estimated Creat Clear 78, Estimated GFR 71, Est GFR ( Amer) 86, Glucose 232 H, Calcium 8.7, Total Bilirubin 0.4, AST 32 D, ALT 29, Alkaline Phosphatase 59, Total Protein 6.3 L, Albumin 2.5 L, Globulin 3.8 H, Albumin/Globulin Ratio 0.7 L I & O for Last 24 hours: Intake & Output 12/30/18 12/31/18 01/01/19 01/02/19 11:59 11:59 11:59 11:59 Intake Total 762 / 762 980 / 980 Output Total 3900 / 3900 6150 / 6150 Balance -3138 / -3138 -5170 / -5170 Weight 355 lb 13.217 oz 355 lb 13.217 oz - Constitutional no acute distress - *Routine HEENT Exam Eye: Present: EOMI, PERRL ENT: Present: mucous membranes moist - *Routine Respiratory Exam Present: CTA bilaterally - *Routine Cardiovascular Exam Present: RRR - *Routine Abdominal Exam Present: soft (Obese nontender) - *Routine Extremities Exam Present: edema (Much reduced over his usual. No open wounds.) Assessment and Plan (1) Dyspnea Current visit: Yes Status: Acute Qualifiers: Dyspnea type: dyspnea on exertion Qualified Code(s): R06.09 - Other forms of dyspnea Category: Medical Code(s): R06.00 - Dyspnea, unspecified (2) Elevated d-dimer Current visit: Yes Status: Acute Category: Medical Code(s): R79.89 - Other specified abnormal findings of blood chemistry (3) Elevated troponin Current visit: Yes Status: Acute Category: Medical Code(s): R74.8 - Abnormal levels of other serum enzymes (4) Hyponatremia Current visit: Yes Status: Acute Category: Medical Code(s): E87.1 - Hypo- osmolality and hyponatremia (5) Hyperkalemia Current visit: Yes Status: Acute Category: Medical Code(s): E87.5 - Hyperkalemia (6) Leukocytosis Current visit: Yes Status: Acute Qualifiers: Leukocytosis type: unspecified Qualified Code(s): D72.829 - Elevated white blood cell count, unspecified Category: Medical Code(s): D72.829 - Elevated white blood cell count, unspecified (7) Debility Current visit: No Status: Acute Category: Medical Code(s): R53.81 - Other malaise (8) Dislocation of shoulder, anterior, right, closed Current visit: No Status: Acute Qualifiers: Encounter type: initial encounter Qualified Code(s): S43.014A - Anterior dislocation of right humerus, initial encounter Category: Medical Code(s): S43.014A - Anterior dislocation of right humerus, initial encounter (9) Obesity, Class III, BMI 40-49.9 (morbid obesity) Current visit: No Status: Chronic Category: Medical Code(s): E66.01 - Morbid (severe) obesity due to excess calories (10) Anxiety disorder Current visit: No Status: Chronic Category: Medical Code(s): F41.9 - Anxiety disorder, unspecified (11) Diabetes mellitus Current visit: No Status: Chronic Category: Medical Code(s): E11.9 - Type 2 diabetes mellitus without complications (12) Hypothyroidism Current visit: No Status: Chronic Category: Medical Code(s): E03.9 - Hypothyroidism, unspecified (13) Normal pressure hydrocephalus Current visit: No Status: Chronic Category: Medical Code(s): G91.2 - (Idiopathic) normal pressure hydrocephalus (14) Ventriculo-peritoneal shunt status Current visit: No Status: Chronic Category: Surgical Code(s): Z98.2 - Presence of cerebrospinal fluid drainage device - Assessment and plan all Dx Assessment and Plan for all problems:: Continue present care. He needs to be encouraged to get out of bed.
[2019-01-03 07:05] LABS: Basophils # 0.1 K/mm3 (0-0.2); Basophils % 0.3 % (0.1-2.0); Hematocrit 35.2 % (42.0-52.0); Hemoglobin 11.4 g/dL (14.1-18.0); Lymphocytes # 3.1 K/mm3 (0.7-4.5); Lymphocytes % 15.3 % (10-50); Mean Corpuscular HGB Conc 32.5 g/dL (31.8-35.4); Mean Corpuscular Volume 88.8 fl (80-94); Mean Platelet Volume 6.9 fl (7.4-10.4); Monocytes # 2.3 K/mm3 (0.1-1.0); Monocytes % 11.4 % (1.7-9.3); Neutrophils # 14.9 K/mm3 (1.8-7.8); Neutrophils % 72.9 % (37.0-80.0); Platelet Count 357 K/mm3 (142-424); Red Blood Count 3.96 M/mm3 (4.60-6.20); Red Cell Distribution Width 13.6 % (11.5-17.5)
[2019-01-03 07:11] LABS: White Blood Count 20.5 K/mm3 (4.8-10.8)
[2019-01-03 07:16] LABS: Anion Gap 9.3 mEq/L (5-15); Calcium 7.9 mg/dL (8.5-10.1)
[2019-01-03 07:21] LABS: Lymphocytes % 8 % (10-50); Monocytes % 2 % (2-9); Neutrophils % 81 % (42-76); Total Cells Counted 100
--- NOTE | 2019-01-03 10:28 | Progress Note ---
Internal Medicine - PN: Subj *Date: 01/03/19 *Time: 10:23 Interval history: The patient remains clinically stable. He complained of some heartburn last evening. This was treated accordingly. His EKG did not show anything acute. He does have poor R wave progression. Cardiac enzymes are ordered and showed elevated CPK elevated MB and elevated troponin. He had shown elevated troponins before. See cardiology notes. His sodium has improved to 120. The elevated white blood cell count remains problematic. Manual differentials have shown elevated neutrophils. Lymphocytes are not elevated. Monocytes have been elevated. Chest x-ray and CTs have not been convincing for pulmonary etiologies for his white count elevation. He does complain of some shortness of breath. I do not have an echocardiogram report. Exam Vital signs and Labs for Last 24 Hours: Temp Pulse Resp BP Pulse Ox 97.4 F L 77 18 162/78 H 94 L 01/03/19 08:00 01/03/19 08:00 01/03/19 08:00 01/03/19 08:00 01/03/19 08:42 Laboratory Results - last 24 hr 01/02/19 11:16: POC Glucose 265 H 01/02/19 16:14: POC Glucose 313 H* 01/02/19 20:30: POC Glucose 307 H* 01/02/19 23:25: Total Creatine Kinase 916 H*, CK-MB (CK-2) 6.0 H, CK-MB (CK-2) Rel Index 0.7, Troponin I 0.11 H 01/03/19 06:21: POC Glucose 152 H 01/03/19 06:50: WBC 20.5 H*, RBC 3.96 L, Hgb 11.4 L, Hct 35.2 L, MCV 88.8, MCH 28.8, MCHC 32.5, RDW 13.6, Plt Count 357, MPV 6.9 L, Neut % (Auto) 72.9, Lymph % (Auto) 15.3, [place] % (Auto) 11.4 H, Eos % (Auto) 0.0 L, Baso % (Auto) 0.3, Neut # (Auto) 14.9 H, Lymph # (Auto) 3.1, [place] # (Auto) 2.3 H, Eos # (Auto) 0.0, Baso # (Auto) 0.1, Total Counted 100, Neutrophils % (Manual) 81 H, Band Neutrophils % 9.0 H, Lymphocytes % (Manual) 8 L, Monocytes % (Manual) 2, Platelet Estimate Normal, Poikilocytosis 1+ 01/03/19 06:50: Sodium 120 L, Potassium 4.3, Chloride 83 L, Carbon Dioxide 32, Anion Gap 9.3, BUN 22 H, Creatinine 0.92, Estimated Creat Clear 82, Estimated GFR 83, Est GFR ( Amer) 100, Glucose 139 H D, Calcium 7.9 L Laboratory Tests 01/01/19 01/02/19 01/02/19 08:48 07:18 23:25 WBC 22.1 H* 24.1 H* Neutrophils % (Manual) 72 83 H Band Neutrophils % 2.0 Lymphocytes % (Manual) 15 4 L Atypical Lymphs % 1.0 Monocytes % (Manual) 11 H 10 H Metamyelocytes % 2.0 H Sodium Potassium BUN Creatinine Total Creatine Kinase 916 H* CK-MB (CK-2) 6.0 H CK-MB (CK-2) Rel Index 0.7 Troponin I 0.11 H 01/03/19 01/03/19 06:50 06:50 WBC 20.5 H* Neutrophils % (Manual) 81 H Band Neutrophils % 9.0 H Lymphocytes % (Manual) 8 L Atypical Lymphs % Monocytes % (Manual) 2 Metamyelocytes % Sodium 120 L Potassium 4.3 BUN 22 H Creatinine 0.92 Total Creatine Kinase CK-MB (CK-2) CK-MB (CK-2) Rel Index Troponin I I & O for Last 24 hours: Intake & Output 12/31/18 01/01/19 01/02/19 01/03/19 11:59 11:59 11:59 11:59 Intake Total 762 / 762 980 / 980 5027 / 5027 Output Total 3900 / 3900 6150 / 6150 3600 / 3600 Balance -3138 / -3138 -5170 / -5170 1427 / 1427 Weight 355 lb 13.217 oz 355 lb 13.217 oz 350 lb 1.505 oz Microbiology Reports for the Last 24 Hours: Microbiology 12/31/18 19:50 Blood Blood Culture - Preliminary NO GROWTH AFTER 48 HOURS 12/31/18 18:13 Urine,[place] Urine Culture - Preliminary 08/22/19 19:50 Blood Blood Culture - Preliminary - Constitutional no acute distress - *Routine HEENT Exam Eye: Present: PERRL ENT: Present: mucous membranes moist - *Routine Neck Exam Present: supple - *Routine Respiratory Exam Present: CTA bilaterally. Absent: respiratory distress - *Routine Cardiovascular Exam Present: RRR (No ectopics). Absent: murmur - *Routine Abdominal Exam Present: soft (Obese). Absent: tenderness, mass - *Routine Extremities Exam Present: edema (Much improved over his usual.) - *Routine Neurological Exam Present: alert, oriented X3 - Routine Psychiatric Exam Present: anxious Comments: He is upset this morning regarding his finances. He has considerable property and there is dispute over reimbursement for his property by his sons. Assessment and Plan (1) Leukocytosis Current visit: Yes Status: Acute Qualifiers: Leukocytosis type: unspecified Qualified Code(s): D72.829 - Elevated white blood cell count, unspecified Category: Medical Code(s): D72.829 - Elevated white blood cell count, unspecified (2) Hyponatremia Current visit: Yes Status: Acute Category: Medical Code(s): E87.1 - Hypo- osmolality and hyponatremia (3) Debility Current visit: No Status: Acute Category: Medical Code(s): R53.81 - Other malaise (4) Elevated troponin Current visit: Yes Status: Acute Category: Medical Code(s): R74.8 - Abnormal levels of other serum enzymes (5) Dislocation of shoulder, anterior, right, closed Current visit: No Status: Acute Qualifiers: Encounter type: initial encounter Qualified Code(s): S43.014A - Anterior dislocation of right humerus, initial encounter Category: Medical Code(s): S43.014A - Anterior dislocation of right humerus, initial encounter (6) Dyspnea Current visit: Yes Status: Acute Qualifiers: Dyspnea type: dyspnea on exertion Qualified Code(s): R06.09 - Other forms of dyspnea Category: Medical Code(s): R06.00 - Dyspnea, unspecified (7) Diabetes mellitus Current visit: No Status: Chronic Category: Medical Code(s): E11.9 - Type 2 diabetes mellitus without complications (8) Elevated d-dimer Current visit: Yes Status: Acute Category: Medical Code(s): R79.89 - Other specified abnormal findings of blood chemistry (9) Normal pressure hydrocephalus Current visit: No Status: Chronic Category: Medical Code(s): G91.2 - (Idiopathic) normal pressure hydrocephalus (10) Ventriculo-peritoneal shunt status Current visit: No Status: Chronic Category: Surgical Code(s): Z98.2 - Presence of cerebrospinal fluid drainage device (11) Hyperkalemia Current visit: Yes Status: Acute Category: Medical Code(s): E87.5 - Hyperkalemia (12) Obesity, Class III, BMI 40-49.9 (morbid obesity) Current visit: No Status: Chronic Category: Medical Code(s): E66.01 - Morbid (severe) obesity due to excess calories (13) Anxiety disorder Current visit: No Status: Chronic Category: Medical Code(s): F41.9 - Anxiety disorder, unspecified (14) Hypothyroidism Current visit: No Status: Chronic Category: Medical Code(s): E03.9 - Hypothyroidism, unspecified - Assessment and plan all Dx Assessment and Plan for all problems:: My concern has increased regarding his cardiac status. I do feel that there is infection somewhere but I am not sure where that might be. Infection of the ventriculoperitoneal shunt is certainly a consideration. He has cultured non- staph aureus staph from his blood apparently on the preliminary report. I will add vancomycin.
--- NOTE | 2019-01-03 12:44 | Pharmacy Consult Notes ---
- Pharmacy Consult Date: 01/03/19 Time: 12:42 Referring provider: DR. SANCHEZ Reason for Consult:: VANCOMYCIN DOSING Allergies and ADEs:: Allergies Allergy/AdvReac Type Severity Reaction Status Date / Time No Known Drug Allergies Allergy Unknown Verified 12/26/18 12:39 Home Medications:: Home Medications Medication Instructions Recorded Confirmed Type divalproex 500 mg tablet,delayed 1,000 mg PO HS #180 tab 12/15/18 12/31/18 History release exenatide ER 2 mg/0.65 mL 2 mg SQ WEEKLY #4 each 12/15/18 12/31/18 History subcutaneous pen injector ezetimibe 10 mg tablet 10 mg PO 1200 #90 tab 12/15/18 01/01/19 History glimepiride 4 mg tablet 4 mg PO DAILY #90 tab 12/15/18 12/31/18 History insulin glargine (U-100) 100 55 units SQ DAILY #10 ml 12/15/18 12/31/18 History unit/mL subcutaneous solution levothyroxine 100 mcg tablet 100 mcg PO DAILY #30 tab 12/15/18 12/31/18 History meclizine 25 mg tablet 25 mg PO TID #90 tab 12/15/18 12/31/18 History niacin ER 500 mg tablet,extended 500 mg PO HS #90 tab 12/15/18 12/31/18 History release 24 hr olanzapine 5 mg tablet 5 mg PO HS #90 tab 12/15/18 01/01/19 History oxybutynin chloride 5 mg tablet 5 mg PO 0900,1700 #180 tab 12/15/18 01/01/19 History pioglitazone 15 mg tablet 15 mg PO DAILY #60 tab 12/15/18 12/31/18 History potassium chloride ER 20 mEq 20 meq PO DAILY #90 tab 12/15/18 12/31/18 History tablet,extended release(part/cryst) spironolactone 25 mg tablet 25 mg PO 1700 #90 tab 12/15/18 01/01/19 History Ascorbic Acid/Ascorbate Sodium 500 mg PO DAILY 12/26/18 12/31/18 History [Vitamin C 250 mg Tablet Chew] Aspirin [Aspirin 325mg Tab] 325 mg PO HS 12/26/18 01/01/19 History Cholecalciferol (Vitamin D3) 1,000 unit PO DAILY 12/26/18 12/31/18 History [Vitamin D3 1,000 Unit Cap] Cyanocobalamin (Vitamin B-12) 2,500 mcg SL DAILY 12/26/18 12/31/18 History [B-12] Furosemide [Furosemide 40MG tAB] 40 mg PO 0900,1200 12/26/18 01/01/19 History Hydrocodone/Acetaminophen [Lortab 1 tab PO TIDP PRN #90 tab 12/30/18 12/31/18 Rx 7.5/325mg tablet] Height: 1.83 m Weight: 158.8 kg Laboratory Results:: Laboratory Results - last 24 hr 01/02/19 11:16: POC Glucose 265 H 01/02/19 16:14: POC Glucose 313 H* 01/02/19 20:30: POC Glucose 307 H* 01/02/19 23:25: Total Creatine Kinase 916 H*, CK-MB (CK-2) 6.0 H, CK-MB (CK-2) Rel Index 0.7, Troponin I 0.11 H 01/03/19 06:21: POC Glucose 152 H 01/03/19 06:50: WBC 20.5 H*, RBC 3.96 L, Hgb 11.4 L, Hct 35.2 L, MCV 88.8, MCH 28.8, MCHC 32.5, RDW 13.6, Plt Count 357, MPV 6.9 L, Neut % (Auto) 72.9, Lymph % (Auto) 15.3, [place] % (Auto) 11.4 H, Eos % (Auto) 0.0 L, Baso % (Auto) 0.3, Neut # (Auto) 14.9 H, Lymph # (Auto) 3.1, [place] # (Auto) 2.3 H, Eos # (Auto) 0.0, Baso # (Auto) 0.1, Total Counted 100, Neutrophils % (Manual) 81 H, Band Neutrophils % 9.0 H, Lymphocytes % (Manual) 8 L, Monocytes % (Manual) 2, Platelet Estimate Normal, Poikilocytosis 1+ 01/03/19 06:50: Sodium 120 L, Potassium 4.3, Chloride 83 L, Carbon Dioxide 32, Anion Gap 9.3, BUN 22 H, Creatinine 0.92, Estimated Creat Clear 82, Estimated GFR 83, Est GFR ( Amer) 100, Glucose 139 H D, Calcium 7.9 L 01/03/19 06:50: Monoscreen Negative 01/03/19 11:23: POC Glucose 265 H Medical History: Reports:: Diabetes Mellitus Type 2, Hyperlipidemia, Hypertension Denies:: Cancer Assessment and Plan (1) Leukocytosis Current visit: Yes Status: Acute Qualifiers: Leukocytosis type: unspecified Qualified Code(s): D72.829 - Elevated white blood cell count, unspecified Category: Medical Code(s): D72.829 - Elevated white blood cell count, unspecified (2) Hyponatremia Current visit: Yes Status: Acute Category: Medical Code(s): E87.1 - Hypo- osmolality and hyponatremia (3) Debility Current visit: No Status: Acute Category: Medical Code(s): R53.81 - Other malaise (4) Elevated troponin Current visit: Yes Status: Acute Category: Medical Code(s): R74.8 - Abnormal levels of other serum enzymes (5) Dislocation of shoulder, anterior, right, closed Current visit: No Status: Acute Qualifiers: Encounter type: initial encounter Qualified Code(s): S43.014A - Anterior dislocation of right humerus, initial encounter Category: Medical Code(s): S43.014A - Anterior dislocation of right humerus, initial encounter (6) Dyspnea Current visit: Yes Status: Acute Qualifiers: Dyspnea type: dyspnea on exertion Qualified Code(s): R06.09 - Other forms of dyspnea Category: Medical Code(s): R06.00 - Dyspnea, unspecified (7) Diabetes mellitus Current visit: No Status: Chronic Category: Medical Code(s): E11.9 - Type 2 diabetes mellitus without complications (8) Elevated d-dimer Current visit: Yes Status: Acute Category: Medical Code(s): R79.89 - Other specified abnormal findings of blood chemistry (9) Normal pressure hydrocephalus Current visit: No Status: Chronic Category: Medical Code(s): G91.2 - (Idiopathic) normal pressure hydrocephalus (10) Ventriculo-peritoneal shunt status Current visit: No Status: Chronic Category: Surgical Code(s): Z98.2 - Presence of cerebrospinal fluid drainage device (11) Hyperkalemia Current visit: Yes Status: Acute Category: Medical Code(s): E87.5 - Hyperkalemia (12) Obesity, Class III, BMI 40-49.9 (morbid obesity) Current visit: No Status: Chronic Category: Medical Code(s): E66.01 - Morbid (severe) obesity due to excess calories (13) Anxiety disorder Current visit: No Status: Chronic Category: Medical Code(s): F41.9 - Anxiety disorder, unspecified (14) Hypothyroidism Current visit: No Status: Chronic Category: Medical Code(s): E03.9 - Hypothyroidism, unspecified - Assessment and plan all Dx Assessment and Plan for all problems:: BASED ON PATIENT FACTORS, RECOMMEND VANCOMYCIN 2750 MG IV Q12H. WILL OBTAIN VANCOMYCIN TROUGH LEVEL TOMORROW PRIOR TO 3RD DOSE. PHARMACY WILL FOLLOW DAILY AND ADJUST APPROPRIATE.
--- NOTE | 2019-01-04 08:22 | Progress Note ---
Internal Medicine - PN: Subj *Date: 01/04/19 *Time: 08:19 Interval history: Patient states he is not doing well this morning. He states his left knee hurts and he cannot move it. He states he also cannot move his right knee. is present and states she noticed his left knee swelling for the first time on 01/02/2019. He denies chest pain and shortness of breath. His right shoulder hurts sometimes. He states his bowels have not moved in over a week. According to nursing notes he has been out of bed but he states he did not get out of bed yesterday. He has been able to feed himself. Continues with [place] catheter to bedside drainage Exam Vital signs and Labs for Last 24 Hours: Temp Pulse Resp BP Pulse Ox 97.9 F 88 18 149/78 H 93 L 01/04/19 08:00 01/04/19 08:00 01/04/19 08:00 01/04/19 08:00 01/04/19 08:00 Laboratory Results - last 24 hr 01/03/19 06:50: Monoscreen Negative 01/03/19 11:23: POC Glucose 265 H 01/04/19 06:10: Total Creatine Kinase 408 H D, CK-MB (CK-2) 2.7 D, CK-MB (CK-2) Rel Index 0.7, Troponin I 0.10 H I & O for Last 24 hours: Intake & Output 01/01/19 01/02/19 01/03/19 01/04/19 11:59 11:59 11:59 11:59 Intake Total 762 / 762 980 / 980 5027 / 5027 3743 / 3743 Output Total 3900 / 3900 6150 / 6150 3600 / 3600 5275 / 5275 Balance -3138 / -3138 -5170 / -5170 1427 / 1427 -1532 / -1532 Weight 355 lb 13.217 oz 355 lb 13.217 oz 350 lb 1.505 oz 350 lb 1.505 oz Microbiology Reports for the Last 24 Hours: Microbiology 12/31/18 19:50 Blood Blood Culture - Preliminary Gram Positive Cocci 12/31/18 18:13 Urine,[place] Urine Culture - Preliminary 12/31/18 19:50 Blood Blood Culture - Preliminary NO GROWTH AFTER 48 HOURS Radiology Reports for the Last 24 Hours: 01/01/2019 bilateral lower extremity Doppler studies Findings No evidence of DVT or superficial thrombophlebitis in the veins scanned of the right lower extremity. No evidence of DVT or superficial thrombophlebitis in the veins scanned of the left lower extremity. Limited exam secondary to morbid obesity difficult to image bilateral lower extremities. - Constitutional no acute distress Comments: Awake and alert and calls me by name. - *Routine Respiratory Exam Comments: Bilateral basilar crackles and wheezing throughout. He does have a congested cough. - *Routine Cardiovascular Exam Present: RRR - *Routine Abdominal Exam Present: soft, normoactive bowel sounds. Absent: tenderness Comments: Obese; [place] catheter to bedside drainage - *Routine Extremities Exam Comments: Left knee is edematous and tender to palpation. He cannot move it. He cannot move his right leg as well. He does wiggle his toes without problems. He moves his right arm slowly. - *Routine Neurological Exam Present: alert, oriented X3 Assessment and Plan (1) Leukocytosis Current visit: Yes Status: Acute Qualifiers: Leukocytosis type: unspecified Qualified Code(s): D72.829 - Elevated white blood cell count, unspecified Category: Medical Code(s): D72.829 - Elevated white blood cell count, unspecified (2) Hyponatremia Current visit: Yes Status: Acute Category: Medical Code(s): E87.1 - Hypo- osmolality and hyponatremia (3) Debility Current visit: No Status: Acute Category: Medical Code(s): R53.81 - Other malaise (4) Elevated troponin Current visit: Yes Status: Acute Category: Medical Code(s): R74.8 - Abnormal levels of other serum enzymes (5) Dislocation of shoulder, anterior, right, closed Current visit: No Status: Acute Qualifiers: Encounter type: initial encounter Qualified Code(s): S43.014A - Anterior dislocation of right humerus, initial encounter Category: Medical Code(s): S43.014A - Anterior dislocation of right humerus, initial encounter (6) Dyspnea Current visit: Yes Status: Acute Qualifiers: Dyspnea type: dyspnea on exertion Qualified Code(s): R06.09 - Other forms of dyspnea Category: Medical Code(s): R06.00 - Dyspnea, unspecified (7) Diabetes mellitus Current visit: No Status: Chronic Category: Medical Code(s): E11.9 - Type 2 diabetes mellitus without complications (8) Elevated d-dimer Current visit: Yes Status: Acute Category: Medical Code(s): R79.89 - Other specified abnormal findings of blood chemistry (9) Normal pressure hydrocephalus Current visit: No Status: Chronic Category: Medical Code(s): G91.2 - (Idiopathic) normal pressure hydrocephalus (10) Ventriculo-peritoneal shunt status Current visit: No Status: Chronic Category: Surgical Code(s): Z98.2 - Presence of cerebrospinal fluid drainage device (11) Hyperkalemia Current visit: Yes Status: Acute Category: Medical Code(s): E87.5 - Hyperkalemia (12) Obesity, Class III, BMI 40-49.9 (morbid obesity) Current visit: No Status: Chronic Category: Medical Code(s): E66.01 - Morbid (severe) obesity due to excess calories (13) Anxiety disorder Current visit: No Status: Chronic Category: Medical Code(s): F41.9 - Anxiety disorder, unspecified (14) Hypothyroidism Current visit: No Status: Chronic Category: Medical Code(s): E03.9 - Hypothyroidism, unspecified (15) Constipation Current visit: Yes Status: Acute Category: Medical Code(s): K59.00 - Constipation, unspecified (16) Left knee pain Current visit: Yes Status: Acute Category: Medical Code(s): M25.562 - Pain in left knee - Assessment and plan all Dx Assessment and Plan for all problems:: We will obtain an x-ray of the left knee., Orthopedic consult. Will stop Lovenox. Will start on MiraLAX and suppositories. Will repeat chest x-ray and add duo nebs and incentive spirometer. Labs are pending
[2019-01-04 08:52] LABS: Basophils % 0.2 % (0.1-2.0); Eosinophils % 0.1 % (0.1-12.0); Hematocrit 33.1 % (42.0-52.0); Hemoglobin 10.9 g/dL (14.1-18.0); Lymphocytes # 2.5 K/mm3 (0.7-4.5); Lymphocytes % 13.2 % (10-50); Mean Platelet Volume 7.2 fl (7.4-10.4); Monocytes # 1.8 K/mm3 (0.1-1.0); Monocytes % 9.7 % (1.7-9.3); Neutrophils # 14.5 K/mm3 (1.8-7.8); Neutrophils % 76.7 % (37.0-80.0); Platelet Count 414 K/mm3 (142-424); Red Blood Count 3.67 M/mm3 (4.60-6.20); Red Cell Distribution Width 13.7 % (11.5-17.5); White Blood Count 18.9 K/mm3 (4.8-10.8)
[2019-01-04 08:54] LABS: Anion Gap 9.4 mEq/L (5-15); Calcium 8.3 mg/dL (8.5-10.1)
[2019-01-04 09:15] LABS: Lymphocytes % 15 % (10-50); Monocytes % 17 % (2-9); Neutrophils % 64 % (42-76); RBC Morphology Normal; Total Cells Counted 100
--- NOTE | 2019-01-04 09:20 | Progress Note ---
Subjective Date: 01/04/19 Time: 09:18 Principal diagnosis: Dyspnea Interval history: 63-year-old white male in bed in no acute distress. Denies any chest pain, pressure or tightness. Shortness of breath seemingly improved. Main complaint is that of left knee pain. CT of the chest from Friday showed no evidence of pulmonary embolus. Patient has been maintained on Lovenox due to sedentary state and morbid obesity for thromboembolic prevention. His lower extremity venous Doppler showed no evidence of DVT as well. Exam Vital signs and Labs for Last 24 Hours: Temp Pulse Resp BP Pulse Ox 97.9 F 88 18 149/78 H 93 L 01/04/19 08:00 01/04/19 08:00 01/04/19 08:00 01/04/19 08:00 01/04/19 08:00 Laboratory Results - last 24 hr 01/03/19 06:50: Monoscreen Negative 01/03/19 11:23: POC Glucose 265 H 01/04/19 06:10: Total Creatine Kinase 408 H D, CK-MB (CK-2) 2.7 D, CK-MB (CK-2) Rel Index 0.7, Troponin I 0.10 H 01/04/19 06:10: WBC 18.9 H, RBC 3.67 L, Hgb 10.9 L, Hct 33.1 L, MCV 90.0, MCH 29.7, MCHC 33.0, RDW 13.7, Plt Count 414, MPV 7.2 L, Neut % (Auto) 76.7, Lymph % (Auto) 13.2, [place] % (Auto) 9.7 H, Eos % (Auto) 0.1, Baso % (Auto) 0.2, Neut # (Auto) 14.5 H, Lymph # (Auto) 2.5, [place] # (Auto) 1.8 H, Eos # (Auto) 0.0, Baso # (Auto) 0.0, Total Counted 100, Neutrophils % (Manual) 64, Band Neutrophils % 2.0, Lymphocytes % (Manual) 15, Atypical Lymphs % 2.0, Monocytes % (Manual) 17 H , Platelet Estimate Normal, RBC Morphology Normal 01/04/19 06:10: Sodium 123 L, Potassium 4.4, Chloride 85 L, Carbon Dioxide 33 H, Anion Gap 9.4, BUN 20 H, Creatinine 0.94, Estimated Creat Clear 82, Estimated GFR 81, Est GFR ( Amer) 98, Glucose 169 H D, Calcium 8.3 L I & O for Last 24 hours: Intake & Output 01/01/19 01/02/19 01/03/19 01/04/19 11:59 11:59 11:59 11:59 Intake Total 762 / 762 980 / 980 5027 / 5027 3743 / 3743 Output Total 3900 / 3900 6150 / 6150 3600 / 3600 5275 / 5275 Balance -3138 / -3138 -5170 / -5170 1427 / 1427 -1532 / -1532 Weight 355 lb 13.217 oz 355 lb 13.217 oz 350 lb 1.505 oz 350 lb 1.505 oz Microbiology Reports for the Last 24 Hours: Microbiology 12/31/18 19:50 Blood Blood Culture - Preliminary Gram Positive Cocci 12/31/18 18:13 Urine,[place] Urine Culture - Preliminary 12/31/18 19:50 Blood Blood Culture - Preliminary NO GROWTH AFTER 48 HOURS - *Routine HEENT Exam Head: Present: normocephalic Eye: Present: EOMI, PERRL ENT: Present: mucous membranes moist - *Routine Respiratory Exam Present: CTA bilaterally. Absent: accessory muscle use, rales, rhonchi, wheezes - *Routine Cardiovascular Exam Present: RRR. Absent: murmur, gallop, rubs - *Routine Abdominal Exam Present: soft. Absent: tenderness, distended, guarding - *Routine Extremities Exam Present: edema. Absent: calf tenderness - *Routine Neurological Exam Present: alert, oriented X3, moving all extremities Progress Note: A&P (1) Leukocytosis Status: Acute Current Visit: Yes (2) Hyponatremia Status: Acute Current Visit: Yes (3) Debility Status: Acute Current Visit: No (4) Elevated troponin Status: Acute Current Visit: Yes (5) Dislocation of shoulder, anterior, right, closed Status: Acute Current Visit: No (6) Dyspnea Status: Acute Current Visit: Yes (7) Diabetes mellitus Status: Chronic Current Visit: No (8) Elevated d-dimer Status: Acute Current Visit: Yes (9) Normal pressure hydrocephalus Status: Chronic Current Visit: No (10) Ventriculo-peritoneal shunt status Status: Chronic Current Visit: No (11) Hyperkalemia Status: Acute Current Visit: Yes (12) Obesity, Class III, BMI 40-49.9 (morbid obesity) Status: Chronic Current Visit: No (13) Anxiety disorder Status: Chronic Current Visit: No (14) Hypothyroidism Status: Chronic Current Visit: No (15) Constipation Status: Acute Current Visit: Yes (16) Left knee pain Status: Acute Current Visit: Yes Assessment and Plan for All Diagnoses:: 1. Echo reviewed with Dr. Mir, LV function is normal. 2. Persistent low-grade elevation of troponin, discussed with Dr. Mir, recommend left heart cath tomorrow since non-invasive testing will be inadequate in a person this size with diabetes and dyspnea. May need right heart cath depending on findings at time of LHC. 3. Persistent hyponatremia, will obtain serum osmolality. 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 4. Questionable positive blood culture, on antibiotics per Dr. Corona
--- NOTE | 2019-01-04 09:43 | Electrocardiograph Report ---
APPROVED REPORT Exam: Resting ECG HR:66 bpm ECG Measurements Heart Rate 66 AXES WV 148 P 48 QRSd 96 QRS -15 QT 392 T8 QTc 410 <Conclusion> Normal sinus rhythm Incomplete right bundle branch block Inferior infarct, age undetermined Possible Anterior infarct, age undetermined Abnormal ECG Electronically signed by : aMrtin Ziegler, 01/04/2019 09:42:35
--- NOTE | 2019-01-04 09:44 | Electrocardiograph Report ---
APPROVED REPORT Exam: Resting ECG HR:63 bpm ECG Measurements Heart Rate 63 AXES IA 144 P 52 QRSd 100 QRS -2 QT 404 T23 QTc 413 <Conclusion> Sinus rhythm with premature atrial complexes poor r wave progression Abnormal ECG Electronically signed by : Martin Ziegler, 01/04/2019 09:44:06
--- NOTE | 2019-01-04 16:09 | Electrocardiograph Report ---
APPROVED REPORT Exam: Resting ECG HR:78 bpm ECG Measurements Heart Rate 78 AXES CO 142 P 50 QRSd 98 QRS -12 QT 358 T22 QTc 408 <Conclusion> Normal sinus rhythm Incomplete right bundle branch block Left [place] Deviation Abnormal EKG Abnormal ECG Electronically signed by : Jamey Vega, 01/04/2019 16:09:37
--- NOTE | 2019-01-04 16:39 | Consult Report ---
*Admission Date: 12/31/18 *Reason for consult:: L knee pain, swelling, ecchymosis *History of present illness: 63yo M admitted on 12/31/2018 with leukocytosis, elevated D-dimer and suspicion for infection though origin unknown. He was recently admitted after a R shoulder dislocation (reduced in ER and followed by Dr. Merida), and was [facility] a [facility]. Upon arrival to the penitentiary, the patient's family checked him out and he returned home. He's morbidly obese with baseline BLE edema and limit ed mobility. He has knee pain at baseline, but this morning his pain increased significantly and he noticed severe swelling with light bruising. He was out of bed yesterday into a chair but is unable to bear weight today due to pain. He has been on lovenox for DVT prophylaxis. DVT/PE has been ruled out, and a central line placed for IV access. 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 He reports constipation but no dysuria, no flank pain, no fevers/chills, no chest pain/shortness of breath. Blood and urine cultures are preliminarily positive for gram positive cocci. He is on vancomycin and ceftriaxone. No injury to the L knee has been reported. He complains of pain in the R shoulder; he felt a pop while being positioned for CT and is unable to lift this arm without pain. Review of Systems - Review of Systems Review of systems:: pertinent systems reviewed and negative unless documented below - *Neurologic Reports dizziness, Reports weakness, Denies localized weakness, Denies headache(s) [facility] History I have reviewed the patient's past medical history: Yes Medical History: Reports:: Diabetes Mellitus Type 2, Hyperlipidemia, Hypertension Denies:: Cancer *Have you ever received a pneumonia vaccine?: Yes *Have you received a flu vaccine this season?: Yes Other Medical History: Reports: Hypothyroidism Laterality Cases: Right: Other Other Surgeries: Yes: Other Amputation: No Fractures: No - *Social History Educational Level: Completed High School Smoking Status: Former smoker Tobacco Type: cigarettes # Packs/Day (cigarettes): 2 #Yrs smoked (if former smoker): 1 Alcohol Intake: never Substance Use Type: denies use *Occupational Status:: retired, disabled Housing: house Household Members: spouse *Travel in the last 8 weeks: None - Psychiatric History Expresses thoughts of harming self/others: None Suicide Plan Description: No Plan Family Hx:: No significant family history Meds Home Medications Medication Instructions Recorded Confirmed Type divalproex 500 mg tablet,delayed 1,000 mg PO HS #180 tab 12/15/18 12/31/18 History release exenatide ER 2 mg/0.65 mL 2 mg SQ WEEKLY #4 each 12/15/18 12/31/18 History subcutaneous pen injector ezetimibe 10 mg tablet 10 mg PO 1200 #90 tab 12/15/18 01/01/19 History glimepiride 4 mg tablet 4 mg PO DAILY #90 tab 12/15/18 12/31/18 History insulin glargine (U-100) 100 55 units SQ DAILY #10 ml 12/15/18 12/31/18 History unit/mL subcutaneous solution levothyroxine 100 mcg tablet 100 mcg PO DAILY #30 tab 12/15/18 12/31/18 History meclizine 25 mg tablet 25 mg PO TID #90 tab 12/15/18 12/31/18 History niacin ER 500 mg tablet,extended 500 mg PO HS #90 tab 12/15/18 12/31/18 History release 24 hr olanzapine 5 mg tablet 5 mg PO HS #90 tab 12/15/18 01/01/19 History oxybutynin chloride 5 mg tablet 5 mg PO 0900,1700 #180 tab 12/15/18 01/01/19 History pioglitazone 15 mg tablet 15 mg PO DAILY #60 tab 12/15/18 12/31/18 History potassium chloride ER 20 mEq 20 meq PO DAILY #90 tab 12/15/18 12/31/18 History tablet,extended release(part/cryst) spironolactone 25 mg tablet 25 mg PO 1700 #90 tab 12/15/18 01/01/19 History Ascorbic Acid/Ascorbate Sodium 500 mg PO DAILY 12/26/18 12/31/18 History [Vitamin C 250 mg Tablet Chew] Aspirin [Aspirin 325mg Tab] 325 mg PO HS 12/26/18 01/01/19 History Cholecalciferol (Vitamin D3) 1,000 unit PO DAILY 12/26/18 12/31/18 History [Vitamin D3 1,000 Unit Cap] Cyanocobalamin (Vitamin B-12) 2,500 mcg SL DAILY 12/26/18 12/31/18 History [B-12] Furosemide [Furosemide 40MG tAB] 40 mg PO 0900,1200 12/26/18 01/01/19 History Hydrocodone/Acetaminophen [Lortab 1 tab PO TIDP PRN #90 tab 12/30/18 12/31/18 Rx 7.5/325mg tablet] Allergies Allergy/AdvReac Type Severity Reaction Status Date / Time No Known Drug Allergies Allergy Unknown Verified 12/26/18 12:39 Exam Vital signs and Labs for Last 24 Hours: Temp Pulse Resp BP Pulse Ox 98.0 F 60 18 149/62 H 93 L 01/04/19 16:00 01/04/19 16:00 01/04/19 16:00 01/04/19 16:00 01/04/19 16:00 Laboratory Results - last 24 hr 01/03/19 16:43: POC Glucose 299 H 01/03/19 20:21: POC Glucose 405 H* 01/04/19 06:10: Total Creatine Kinase 408 H D, CK-MB (CK-2) 2.7 D, CK-MB (CK-2) Rel Index 0.7, Troponin I 0.10 H 01/04/19 06:10: WBC 18.9 H, RBC 3.67 L, Hgb 10.9 L, Hct 33.1 L, MCV 90.0, MCH 29.7, MCHC 33.0, RDW 13.7, Plt Count 414, MPV 7.2 L, Neut % (Auto) 76.7, Lymph % (Auto) 13.2, [place] % (Auto) 9.7 H, Eos % (Auto) 0.1, Baso % (Auto) 0.2, Neut # (Auto) 14.5 H, Lymph # (Auto) 2.5, [place] # (Auto) 1.8 H, Eos # (Auto) 0.0, Baso # (Auto) 0.0, Total Counted 100, Neutrophils % (Manual) 64, Band Neutrophils % 2.0, Lymphocytes % (Manual) 15, Atypical Lymphs % 2.0, Monocytes % (Manual) 17 H , Platelet Estimate Normal, RBC Morphology Normal 01/04/19 06:10: Sodium 123 L, Potassium 4.4, Chloride 85 L, Carbon Dioxide 33 H, Anion Gap 9.4, BUN 20 H, Creatinine 0.94, Estimated Creat Clear 82, Estimated GFR 81, Est GFR ( Amer) 98, Glucose 169 H D, Calcium 8.3 L 01/04/19 06:10: ESR 28 H 01/04/19 06:10: C-Reactive Protein 4.5 H 01/04/19 06:18: POC Glucose 183 H 01/04/19 11:07: POC Glucose 256 H I & O for Last 24 hours: Intake & Output 01/02/19 01/03/19 01/04/19 01/05/19 11:59 11:59 11:59 11:59 Intake Total 980 / 980 5027 / 5027 3743 / 3743 1253 / 1253 Output Total 6150 / 6150 3600 / 3600 5275 / 5275 Balance -5170 / -5170 1427 / 1427 -1532 / -1532 1253 / 1253 Weight 355 lb 13.217 oz 350 lb 1.505 oz 350 lb 1.505 oz Microbiology Reports for the Last 24 Hours: Microbiology 01/04/19 12:40 Synovial Fluid - Aspirate Gram Stain - Final 12/31/18 18:13 Urine,[place] Urine Culture - Preliminary Gram Positive Cocci 12/31/18 19:50 Blood Blood Culture - Preliminary Gram Positive Cocci - Constitutional no acute distress, morbidly obese - *Routine HEENT Exam Head: Present: normocephalic Eye: Present: EOMI ENT: Present: mucous membranes moist - Routine Chest/Breast/Axilla Exam Comments: L subclavian CVC - *Routine Respiratory Exam Absent: accessory muscle use, rhonchi, wheezes - *Routine Cardiovascular Exam Present: RRR - *Routine Abdominal Exam Present: soft. Absent: tenderness - *Routine Extremities Exam Comments: L knee with moderate effusion, mild ecchymosis no open wounds, abrasions, ecchymosis L knee; mildly warm to touch patient tolerated gently ROM of L knee 0-90 degrees but reports pain beyond that moderate tenderness L knee; diffusely tender both medially and laterally L calf soft, non-tender +DF/PF/EHL LLE palpable pedal pulses LLE SILT distally LLE - *Routine Skin Exam Present: ecchymosis (L knee ). Absent: cyanosis, erythema, wounds - *Routine Neurological Exam Present: alert, oriented X3, moving all extremities, normal tone, hearing grossly intact, normal speech. Absent: sensory deficit, motor deficit, altered mental status Results - Labs Result Diagrams: 01/04/19 06:10 01/04/19 06:10 Labs: Abnormal lab results 01/03/19 01/03/19 01/04/19 Range/Units 16:43 20:21 06:10 WBC (4.8-10.8) K/mm3 RBC (4.60-6.20) M/mm3 Hgb (14.1-18.0) g/dL Hct (42.0-52.0) % MPV (7.4-10.4) fl [place] % (Auto) (1.7-9.3) % Neut # (Auto) (1.8-7.8) K/mm3 [place] # (Auto) (0.1-1.0) K/mm3 Monocytes % (Manual) (2-9) % ESR (0-20) mm/hr Sodium (136-145) mmol/L Chloride (98-107) mmol/L Carbon Dioxide (21.0-32.0) mmol/L BUN (7-18) mg/dL Glucose (74-106) mg/dL POC Glucose 299 H 405 H* (70-110) Calcium (8.5-10.1) mg/dL Total Creatine Kinase 408 H D (39-308) U/L Troponin I 0.10 H (0.00-0.06) ng/ml C-Reactive Protein (0.0-0.9) mg/dL 01/04/19 01/04/19 01/04/19 Range/Units 06:10 06:10 06:10 WBC 18.9 H (4.8-10.8) K/mm3 RBC 3.67 L (4.60-6.20) M/mm3 Hgb 10.9 L (14.1-18.0) g/dL Hct 33.1 L (42.0-52.0) % MPV 7.2 L (7.4-10.4) fl [place] % (Auto) 9.7 H (1.7-9.3) % Neut # (Auto) 14.5 H (1.8-7.8) K/mm3 [place] # (Auto) 1.8 H (0.1-1.0) K/mm3 Monocytes % (Manual) 17 H (2-9) % ESR 28 H (0-20) mm/hr Sodium 123 L (136-145) mmol/L Chloride 85 L (98-107) mmol/L Carbon Dioxide 33 H (21.0-32.0) mmol/L BUN 20 H (7-18) mg/dL Glucose 169 H D (74-106) mg/dL POC Glucose (70-110) Calcium 8.3 L (8.5-10.1) mg/dL Total Creatine Kinase (39-308) U/L Troponin I (0.00-0.06) ng/ml C-Reactive Protein (0.0-0.9) mg/dL 01/04/19 01/04/19 01/04/19 Range/Units 06:10 06:18 11:07 WBC (4.8-10.8) K/mm3 RBC (4.60-6.20) M/mm3 Hgb (14.1-18.0) g/dL Hct (42.0-52.0) % MPV (7.4-10.4) fl [place] % (Auto) (1.7-9.3) % Neut # (Auto) (1.8-7.8) K/mm3 [place] # (Auto) (0.1-1.0) K/mm3 Monocytes % (Manual) (2-9) % ESR (0-20) mm/hr Sodium (136-145) mmol/L Chloride (98-107) mmol/L Carbon Dioxide (21.0-32.0) mmol/L BUN (7-18) mg/dL Glucose (74-106) mg/dL POC Glucose 183 H 256 H (70-110) Calcium (8.5-10.1) mg/dL Total Creatine Kinase (39-308) U/L Troponin I (0.00-0.06) ng/ml C-Reactive Protein 4.5 H (0.0-0.9) mg/dL H & H 12/31/18 01/01/19 01/02/19 Range/Units 19:00 08:48 07:18 Hgb 12.8 L 12.3 L 12.0 L (14.1-18.0) g/dL Hct 38.7 L 37.9 L 38.6 L (42.0-52.0) % 01/03/19 01/04/19 Range/Units 06:50 06:10 Hgb 11.4 L 10.9 L (14.1-18.0) g/dL Hct 35.2 L 33.1 L (42.0-52.0) % All other labs normal. - Diagnostic results Shoulder x-ray: image reviewed (no dislocation of glenohumeral joint) Knee x-ray: image reviewed (mild-moderate DJD L knee, no acute finding) Assessment and Plan (1) Leukocytosis Current visit: Yes Status: Acute Qualifiers: Leukocytosis type: unspecified Qualified Code(s): D72.829 - Elevated white blood cell count, unspecified Category: Medical Code(s): D72.829 - Elevated white blood cell count, unspecified (2) Hyponatremia Current visit: Yes Status: Acute Category: Medical Code(s): E87.1 - Hypo- osmolality and hyponatremia (3) Debility Current visit: No Status: Acute Category: Medical Code(s): R53.81 - Other malaise (4) Elevated troponin Current visit: Yes Status: Acute Category: Medical Code(s): R74.8 - Abnormal levels of other serum enzymes (5) Dislocation of shoulder, anterior, right, closed Current visit: No Status: Acute Qualifiers: Encounter type: initial encounter Qualified Code(s): S43.014A - Anterior dislocation of right humerus, initial encounter Category: Medical Code(s): S43.014A - Anterior dislocation of right humerus, initial encounter (6) Dyspnea Current visit: Yes Status: Acute Qualifiers: Dyspnea type: dyspnea on exertion Qualified Code(s): R06.09 - Other forms of dyspnea Category: Medical Code(s): R06.00 - Dyspnea, unspecified (7) Diabetes mellitus Current visit: No Status: Chronic Category: Medical Code(s): E11.9 - Type 2 diabetes mellitus without complications (8) Elevated d-dimer Current visit: Yes Status: Acute Category: Medical Code(s): R79.89 - Other specified abnormal findings of blood chemistry (9) Normal pressure hydrocephalus Current visit: No Status: Chronic Category: Medical Code(s): G91.2 - (Id iopathic) normal pressure hydrocephalus (10) Ventriculo-peritoneal shunt status Current visit: No Status: Chronic Category: Surgical Code(s): Z98.2 - Presence of cerebrospinal fluid drainage device (11) Hyperkalemia Current visit: Yes Status: Acute Category: Medical Code(s): E87.5 - Hyperkalemia (12) Obesity, Class III, BMI 40-49.9 (morbid obesity) Current visit: No Status: Chronic Category: Medical Code(s): E66.01 - Morbid (severe) obesity due to excess calories (13) Anxiety disorder Current visit: No Status: Chronic Category: Medical Code(s): F41.9 - Anxiety disorder, unspecified (14) Hypothyroidism Current visit: No Status: Chronic Category: Medical Code(s): E03.9 - Hypothyroidism, unspecified (15) Constipation Current visit: Yes Status: Acute Category: Medical Code(s): K59.00 - Constipation, unspecified (16) Left knee pain Current visit: Yes Status: Acute Category: Medical Code(s): M25.562 - Pain in left knee - Assessment and plan all Dx Assessment and Plan for all problems:: 63yo M with L knee pain, effusion, ecchymosis -- after obtaining verbal consent from the patient, the L knee was aspirated using sterile technique and an 18G needle. Hemarthrosis was confirmed, but was to coagulated to aspirate more than 1-2cc. This sample was sent for gram stain and culture; cell count unable to be obtained due to specimen coagulation. -- will f/u cultures, but do not suspect this is infected -- recommend ice, elevation, ROM as tolerated -- R shoulder is not dislocated on new XR today -- recommend physical therapy for mobilization, ROM L knee + R shoulder; f/u with Dr. Merida as an outpatient for the shoulder. I will continue to follow the L knee while in house.
[2019-01-05 08:00] LABS: Basophils # 0.1 K/mm3 (0-0.2); Basophils % 0.3 % (0.1-2.0); Eosinophils % 0.1 % (0.1-12.0); Hematocrit 31.2 % (42.0-52.0); Hemoglobin 10.2 g/dL (14.1-18.0); Lymphocytes # 2.8 K/mm3 (0.7-4.5); Lymphocytes % 12.2 % (10-50); Mean Corpuscular HGB Conc 32.6 g/dL (31.8-35.4); Mean Corpuscular Volume 89.9 fl (80-94); Mean Platelet Volume 6.5 fl (7.4-10.4); Monocytes % 8.8 % (1.7-9.3); Neutrophils # 18.1 K/mm3 (1.8-7.8); Neutrophils % 78.6 % (37.0-80.0); Platelet Count 414 K/mm3 (142-424); Red Blood Count 3.48 M/mm3 (4.60-6.20); Red Cell Distribution Width 13.7 % (11.5-17.5)
[2019-01-05 08:06] LABS: Anion Gap 7.6 mEq/L (5-15)
--- NOTE | 2019-01-05 08:18 | Progress Note ---
Internal Medicine - PN: Subj *Date: 01/05/19 *Time: 08:15 Interval history: Patient states he actually feels pretty good. He is able to feed himself with his left hand. He has not been out of bed. He has difficulty in bending at the knees. He is eating better since his bowels have moved. They moved several times since yesterday. He continues with Rogers catheter to bedside drainage and left upper chest midline. He denies chest pain and shortness of breath. He states he is wheezing periodically and has a cough and intervals. He feels the breathing treatments have helped. Dr. De La Cruz noted appreciated. Blood culture positive for Staphylococcus capitis. Urine culture with colony count greater than 100,000 and final is pending. Sodium is lower today at 118. White count has elevated at 23,000. Exam Vital signs and Labs for Last 24 Hours: Temp Pulse Resp BP Pulse Ox 98.1 F 86 22 159/81 H 96 01/05/19 07:42 01/05/19 07:42 01/05/19 07:42 01/05/19 07:42 01/05/19 07:42 Laboratory Results - last 24 hr 01/03/19 16:43: POC Glucose 299 H 01/03/19 20:21: POC Glucose 405 H* 01/04/19 06:10: WBC 18.9 H, RBC 3.67 L, Hgb 10.9 L, Hct 33.1 L, MCV 90.0, MCH 29.7, MCHC 33.0, RDW 13.7, Plt Count 414, MPV 7.2 L, Neut % (Auto) 76.7, Lymph % (Auto) 13.2, [place] % (Auto) 9.7 H, Eos % (Auto) 0.1, Baso % (Auto) 0.2, Neut # (Auto) 14.5 H, Lymph # (Auto) 2.5, [place] # (Auto) 1.8 H, Eos # (Auto) 0.0, Baso # (Auto) 0.0, Total Counted 100, Neutrophils % (Manual) 64, Band Neutrophils % 2.0, Lymphocytes % (Manual) 15, Atypical Lymphs % 2.0, Monocytes % (Manual) 17 H , Platelet Estimate Normal, RBC Morphology Normal 01/04/19 06:10: Sodium 123 L, Potassium 4.4, Chloride 85 L, Carbon Dioxide 33 H, Anion Gap 9.4, BUN 20 H, Creatinine 0.94, Estimated Creat Clear 82, Estimated GFR 81, Est GFR ( Amer) 98, Glucose 169 H D, Calcium 8.3 L 01/04/19 06:10: ESR 28 H 01/04/19 06:10: C-Reactive Protein 4.5 H 01/04/19 06:18: POC Glucose 183 H 01/04/19 11:07: POC Glucose 256 H 01/04/19 16:23: POC Glucose 308 H* 01/04/19 19:33: Vancomycin Trough 20.7 H 01/04/19 20:07: POC Glucose 392 H* 01/05/19 06:19: POC Glucose 191 H 01/05/19 07:50: WBC 23.0 H*, RBC 3.48 L, Hgb 10.2 L, Hct 31.2 L, MCV 89.9, MCH 29.3, MCHC 32.6, RDW 13.7, Plt Count 414, MPV 6.5 L, Neut % (Auto) 78.6, Lymph % (Auto) 12.2, [place] % (Auto) 8.8, Eos % (Auto) 0.1, Baso % (Auto) 0.3, Neut # (Auto) 18.1 H, Lymph # (Auto) 2.8, [place] # (Auto) 2.0 H, Eos # (Auto) 0.0, Baso # (Auto) 0.1 01/05/19 07:50: Sodium 118 L, Potassium 4.6, Chloride 83 L, Carbon Dioxide 32, Anion Gap 7.6, BUN 17, Creatinine 0.92, Estimated Creat Clear 82, Estimated GFR 83, Est GFR ( Amer) 100, Glucose 254 H, Calcium 8.0 L I & O for Last 24 hours: Intake & Output 01/02/19 01/03/19 01/04/19 01/05/19 11:59 11:59 11:59 11:59 Intake Total 980 / 980 5027 / 5027 3743 / 3743 3078 / 3078 Output Total 6150 / 6150 3600 / 3600 5275 / 5275 4425 / 4425 Balance -5170 / -5170 1427 / 1427 -1532 / -1532 -1347 / -1347 Weight 355 lb 13.217 oz 350 lb 1.505 oz 350 lb 1.505 oz 332 lb 10.841 oz Microbiology Reports for the Last 24 Hours: Microbiology 12/31/18 19:50 Blood Blood Culture - Preliminary Staphylococcus capitis 01/04/19 12:40 Synovial Fluid - Aspirate Gram Stain - Final 12/31/18 18:13 Urine,[place] Urine Culture - Preliminary Gram Positive Cocci - Constitutional no acute distress Comments: Smiles today with conversation - *Routine Respiratory Exam Present: CTA bilaterally - *Routine Cardiovascular Exam Present: RRR - *Routine Abdominal Exam Present: soft, normoactive bowel sounds Comments: Large. Rogers cath to bedside drainage. - *Routine Extremities Exam Comments: Edema with some ecchymosis of the left knee. Edema also of the lower left leg. Tender to palpation. He is has difficulty with moving the right leg as well. - *Routine Neurological Exam Present: alert, oriented X3 Assessment and Plan (1) Leukocytosis Current visit: Yes Status: Acute Qualifiers: Leukocytosis type: unspecified Qualified Code(s): D72.829 - Elevated white blood cell count, unspecified Category: Medical Code(s): D72.829 - Elevated white blood cell count, unspecified (2) Hyponatremia Current visit: Yes Status: Acute Category: Medical Code(s): E87.1 - Hypo- osmolality and hyponatremia (3) Debility Current visit: No Status: Acute Category: Medical Code(s): R53.81 - Other malaise (4) Elevated troponin Current visit: Yes Status: Acute Category: Medical Code(s): R74.8 - Abnormal levels of other serum enzymes (5) Dislocation of shoulder, anterior, right, closed Current visit: No Status: Acute Qualifiers: Encounter type: initial encounter Qualified Code(s): S43.014A - Anterior dislocation of right humerus, initial encounter Category: Medical Code(s): S43.014A - Anterior dislocation of right humerus, initial encounter (6) Dyspnea Current visit: Yes Status: Acute Qualifiers: Dyspnea type: dyspnea on exertion Qualified Code(s): R06.09 - Other forms of dyspnea Category: Medical Code(s): R06.00 - Dyspnea, unspecified (7) Diabetes mellitus Current visit: No Status: Chronic Category: Medical Code(s): E11.9 - Type 2 diabetes mellitus without complications (8) Elevated d-dimer Current visit: Yes Status: Acute Category: Medical Code(s): R79.89 - Other specified abnormal findings of blood chemistry (9) Normal pressure hydrocephalus Current visit: No Status: Chronic Category: Medical Code(s): G91.2 - (Idiopathic) normal pressure hydrocephalus (10) Ventriculo-peritoneal shunt status Current visit: No Status: Chronic Category: Surgical Code(s): Z98.2 - Presence of cerebrospinal fluid drainage device (11) Hyperkalemia Current visit: Yes Status: Acute Category: Medical Code(s): E87.5 - Hyperkalemia (12) Obesity, Class III, BMI 40-49.9 (morbid obesity) Current visit: No Status: Chronic Category: Medical Code(s): E66.01 - Morbid (severe) obesity due to excess calories (13) Anxiety disorder Current visit: No Status: Chronic Category: Medical Code(s): F41.9 - Anxiety disorder, unspecified (14) Hypothyroidism Current visit: No Status: Chronic Category: Medical Code(s): E03.9 - Hypothyroidism, unspecified (15) Constipation Current visit: Yes Status: Acute Category: Medical Code(s): K59.00 - Constipation, unspecified (16) Left knee pain Current visit: Yes Status: Acute Category: Medical Code(s): M25.562 - Pain in left knee (17) Sepsis Current visit: Yes Status: Acute Category: Medical Code(s): A41.9 - Sepsis, unspecified organism - Assessment and plan all Dx Assessment and Plan for all problems:: Continue with IV antibiotics. Patient needs to be out of bed. Continue to work with physical therapy.
[2019-01-05 08:32] LABS: Lymphocytes % 10 % (10-50); Monocytes % 7 % (2-9); Neutrophils % 80 % (42-76); Total Cells Counted 100
--- NOTE | 2019-01-05 09:42 | Pharmacy Consult Notes ---
- Pharmacy Consult Date: 01/05/19 Time: 09:41 Referring provider: DR. SANCHEZ Reason for Consult:: VANCOMYCIN TROUGH LEVEL Allergies and ADEs:: Allergies Allergy/AdvReac Type Severity Reaction Status Date / Time No Known Drug Allergies Allergy Unknown Verified 12/26/18 12:39 Home Medications:: Home Medications Medication Instructions Recorded Confirmed Type divalproex 500 mg tablet,delayed 1,000 mg PO HS #180 tab 12/15/18 12/31/18 History release exenatide ER 2 mg/0.65 mL 2 mg SQ WEEKLY #4 each 12/15/18 12/31/18 History subcutaneous pen injector ezetimibe 10 mg tablet 10 mg PO 1200 #90 tab 12/15/18 01/01/19 History glimepiride 4 mg tablet 4 mg PO DAILY #90 tab 12/15/18 12/31/18 History insulin glargine (U-100) 100 55 units SQ DAILY #10 ml 12/15/18 12/31/18 History unit/mL subcutaneous solution levothyroxine 100 mcg tablet 100 mcg PO DAILY #30 tab 12/15/18 12/31/18 History meclizine 25 mg tablet 25 mg PO TID #90 tab 12/15/18 12/31/18 History niacin ER 500 mg tablet,extended 500 mg PO HS #90 tab 12/15/18 12/31/18 History release 24 hr olanzapine 5 mg tablet 5 mg PO HS #90 tab 12/15/18 01/01/19 History oxybutynin chloride 5 mg tablet 5 mg PO 0900,1700 #180 tab 12/15/18 01/01/19 History pioglitazone 15 mg tablet 15 mg PO DAILY #60 tab 12/15/18 12/31/18 History potassium chloride ER 20 mEq 20 meq PO DAILY #90 tab 12/15/18 12/31/18 History tablet,extended release(part/cryst) spironolactone 25 mg tablet 25 mg PO 1700 #90 tab 12/15/18 01/01/19 History Ascorbic Acid/Ascorbate Sodium 500 mg PO DAILY 12/26/18 12/31/18 History [Vitamin C 250 mg Tablet Chew] Aspirin [Aspirin 325mg Tab] 325 mg PO HS 12/26/18 01/01/19 History Cholecalciferol (Vitamin D3) 1,000 unit PO DAILY 12/26/18 12/31/18 History [Vitamin D3 1,000 Unit Cap] Cyanocobalamin (Vitamin B-12) 2,500 mcg SL DAILY 12/26/18 12/31/18 History [B-12] Furosemide [Furosemide 40MG tAB] 40 mg PO 0900,1200 12/26/18 01/01/19 History Hydrocodone/Acetaminophen [Lortab 1 tab PO TIDP PRN #90 tab 12/30/18 12/31/18 Rx 7.5/325mg tablet] Height: 1.83 m Weight: 150.9 kg Laboratory Results:: Laboratory Results - last 24 hr 01/04/19 06:10: ESR 28 H 01/04/19 06:10: C-Reactive Protein 4.5 H 01/04/19 06:18: POC Glucose 183 H 01/04/19 11:07: POC Glucose 256 H 01/04/19 16:23: POC Glucose 308 H* 01/04/19 19:33: Vancomycin Trough 20.7 H 01/04/19 20:07: POC Glucose 392 H* 01/05/19 06:19: POC Glucose 191 H 01/05/19 07:50: WBC 23.0 H*, RBC 3.48 L, Hgb 10.2 L, Hct 31.2 L, MCV 89.9, MCH 29.3, MCHC 32.6, RDW 13.7, Plt Count 414, MPV 6.5 L, Neut % (Auto) 78.6, Lymph % (Auto) 12.2, [place] % (Auto) 8.8, Eos % (Auto) 0.1, Baso % (Auto) 0.3, Neut # (Auto) 18.1 H, Lymph # (Auto) 2.8, [place] # (Auto) 2.0 H, Eos # (Auto) 0.0, Baso # (Auto) 0.1, Total Counted 100, Neutrophils % (Manual) 80 H, Band Neutrophils % 3.0, Lymphocytes % (Manual) 10, Monocytes % (Manual) 7, Platelet Estimate Normal 01/05/19 07:50: Sodium 118 L, Potassium 4.6, Chloride 83 L, Carbon Dioxide 32, Anion Gap 7.6, BUN 17, Creatinine 0.92, Estimated Creat Clear 82, Estimated GFR 83, Est GFR ( Amer) 100, Glucose 254 H, Calcium 8.0 L Medical History: Reports:: Diabetes Mellitus Type 2, Hyperlipidemia, Hypertension Denies:: Cancer Assessment and Plan (1) Leukocytosis Current visit: Yes Status: Acute Qualifiers: Leukocytosis type: unspecified Qualified Code(s): D72.829 - Elevated white blood cell count, unspecified Category: Medical Code(s): D72.829 - Elevated white blood cell count, unspecified (2) Hyponatremia Current visit: Yes Status: Acute Category: Medical Code(s): E87.1 - Hypo- osmolality and hyponatremia (3) Debility Current visit: No Status: Acute Category: Medical Code(s): R53.81 - Other malaise (4) Elevated troponin Current visit: Yes Status: Acute Category: Medical Code(s): R74.8 - Abnormal levels of other serum enzymes (5) Dislocation of shoulder, anterior, right, closed Current visit: No Status: Acute Qualifiers: Encounter type: initial encounter Qualified Code(s): S43.014A - Anterior dislocation of right humerus, initial encounter Category: Medical Code(s): S43.014A - Anterior dislocation of right humerus, initial encounter (6) Dyspnea Current visit: Yes Status: Acute Qualifiers: Dyspnea type: dyspnea on exertion Qualified Code(s): R06.09 - Other forms of dyspnea Category: Medical Code(s): R06.00 - Dyspnea, unspecified (7) Diabetes mellitus Current visit: No Status: Chronic Category: Medical Code(s): E11.9 - Type 2 diabetes mellitus without complications (8) Elevated d-dimer Current visit: Yes Status: Acute Category: Medical Code(s): R79.89 - Other specified abnormal findings of blood chemistry (9) Normal pressure hydrocephalus Current visit: No Status: Chronic Category: Medical Code(s): G91.2 - (Idiopathic) normal pressure hydrocephalus (10) Ventriculo-peritoneal shunt status Current visit: No Status: Chronic Category: Surgical Code(s): Z98.2 - Presence of cerebrospinal fluid drainage device (11) Hyperkalemia Current visit: Yes Status: Acute Category: Medical Code(s): E87.5 - Hyperkalemia (12) Obesity, Class III, BMI 40-49.9 (morbid obesity) Current visit: No Status: Chronic Category: Medical Code(s): E66.01 - Morbid (severe) obesity due to excess calories (13) Anxiety disorder Current visit: No Status: Chronic Category: Medical Code(s): F41.9 - Anxiety disorder, unspecified (14) Hypothyroidism Current visit: No Status: Chronic Category: Medical Code(s): E03.9 - Hypothyroidism, unspecified (15) Constipation Current visit: Yes Status: Acute Category: Medical Code(s): K59.00 - Constipation, unspecified (16) Left knee pain Current visit: Yes Status: Acute Category: Medical Code(s): M25.562 - Pain in left knee (17) Sepsis Current visit: Yes Status: Acute Category: Medical Code(s): A41.9 - Sepsis, unspecified organism - Assessment and plan all Dx Assessment and Plan for all problems:: BASED ON VANCOMYCIN TROUGH LEVEL AND PATIENT FACTORS, RECOMMEND EXTENDING THE INTERVAL TO VANCOMYCIN 2750 MG IV Q18H. PHARMACY WILL CONTINUE TO MONITOR DAILY AND ADJUST APPROPRIATE.
--- NOTE | 2019-01-05 09:54 | Progress Note ---
Subjective Date: 01/05/19 Time: 09:50 Principal diagnosis: Dyspnea Interval history: 63-year-old white male in bed in no acute distress. Denies chest pain, pressure or tightness. Results of aspiration of the left knee concerning for infectious process in association with increasing white count again and positive blood cultures. In light of the above results, patient asymptomatic from a cardiac standpoint, we will hold off on any further testing at this time since his LV function noted to be normal on echocardiogram. Discussed with Dr. Corona and Sade Salamanca APRN, since they are considering infectious disease consult and possible transfer. Exam Vital signs and Labs for Last 24 Hours: Temp Pulse Resp BP Pulse Ox 98.1 F 86 22 159/81 H 2 L 01/05/19 07:42 01/05/19 07:42 01/05/19 07:42 01/05/19 07:42 01/05/19 08:00 Laboratory Results - last 24 hr 01/04/19 06:10: ESR 28 H 01/04/19 06:10: C-Reactive Protein 4.5 H 01/04/19 06:18: POC Glucose 183 H 01/04/19 11:07: POC Glucose 256 H 01/04/19 16:23: POC Glucose 308 H* 01/04/19 19:33: Vancomycin Trough 20.7 H 01/04/19 20:07: POC Glucose 392 H* 01/05/19 06:19: POC Glucose 191 H 01/05/19 07:50: WBC 23.0 H*, RBC 3.48 L, Hgb 10.2 L, Hct 31.2 L, MCV 89.9, MCH 29.3, MCHC 32.6, RDW 13.7, Plt Count 414, MPV 6.5 L, Neut % (Auto) 78.6, Lymph % (Auto) 12.2, [place] % (Auto) 8.8, Eos % (Auto) 0.1, Baso % (Auto) 0.3, Neut # (Auto) 18.1 H, Lymph # (Auto) 2.8, [place] # (Auto) 2.0 H, Eos # (Auto) 0.0, Baso # (Auto) 0.1, Total Counted 100, Neutrophils % (Manual) 80 H, Band Neutrophils % 3.0, Lymphocytes % (Manual) 10, Monocytes % (Manual) 7, Platelet Estimate Normal 01/05/19 07:50: Sodium 118 L, Potassium 4.6, Chloride 83 L, Carbon Dioxide 32, Anion Gap 7.6, BUN 17, Creatinine 0.92, Estimated Creat Clear 82, Estimated GFR 83, Est GFR ( Amer) 100, Glucose 254 H, Calcium 8.0 L I & O for Last 24 hours: Intake & Output 01/02/19 01/03/19 01/04/19 01/05/19 11:59 11:59 11:59 11:59 Intake Total 980 / 980 5027 / 5027 3743 / 3743 3078 / 3078 Output Total 6150 / 6150 3600 / 3600 5275 / 5275 4425 / 4425 Balance -5170 / -5170 1427 / 1427 -1532 / -1532 -1347 / -1347 Weight 355 lb 13.217 oz 350 lb 1.505 oz 350 lb 1.505 oz 332 lb 10.841 oz Microbiology Reports for the Last 24 Hours: Microbiology 12/31/18 18:13 Urine,[place] Urine Culture - Final Aerococcus urinae 12/31/18 19:50 Blood Blood Culture - Preliminary Staphylococcus capitis 01/04/19 12:40 Synovial Fluid - Aspirate Gram Stain - Final - *Routine HEENT Exam Head: Present: normocephalic Eye: Present: EOMI, PERRL ENT: Present: mucous membranes moist - *Routine Respiratory Exam Present: CTA bilaterally. Absent: accessory muscle use, rales, rhonchi, wheezes - *Routine Cardiovascular Exam Present: RRR. Absent: murmur, gallop, rubs - *Routine Extremities Exam Present: edema. Absent: calf tenderness - *Routine Neurological Exam Present: alert, oriented X3, moving all extremities Progress Note: A&P (1) Leukocytosis Status: Acute Current Visit: Yes (2) Hyponatremia Status: Acute Current Visit: Yes (3) Debility Status: Acute Current Visit: No (4) Elevated troponin Status: Acute Current Visit: Yes (5) Dislocation of shoulder, anterior, right, closed Status: Acute Current Visit: No (6) Dyspnea Status: Acute Current Visit: Yes (7) Diabetes mellitus Status: Chronic Current Visit: No (8) Elevated d-dimer Status: Acute Current Visit: Yes (9) Normal pressure hydrocephalus Status: Chronic Current Visit: No (10) Ventriculo-peritoneal shunt status Status: Chronic Current Visit: No (11) Hyperkalemia Status: Acute Current Visit: Yes (12) Obesity, Class III, BMI 40-49.9 (morbid obesity) Status: Chronic Current Visit: No (13) Anxiety disorder Status: Chronic Current Visit: No (14) Hypothyroidism Status: Chronic Current Visit: No (15) Constipation Status: Acute Current Visit: Yes (16) Left knee pain Status: Acute Current Visit: Yes (17) Sepsis Status: Acute Current Visit: Yes Assessment and Plan for All Diagnoses:: Cardiac status stable at this time with no plans for further testing at this time. Once patient has improved from his infectious process, then consideration for stress testing and/or cardiac cath could be discussed. No evidence of valve vegetation noted on echocardiogram.
--- NOTE | 2019-01-05 11:42 | Progress Note ---
Internal Medicine - PN: Subj *Date: 01/04/19 *Time: 11:42 Exam Vital signs and Labs for Last 24 Hours: Temp Pulse Resp BP Pulse Ox 98.1 F 79 22 159/81 H 2 L 01/05/19 07:42 01/05/19 10:03 01/05/19 07:42 01/05/19 07:42 01/05/19 08:00 Laboratory Results - last 24 hr 01/04/19 06:10: ESR 28 H 01/04/19 06:10: C-Reactive Protein 4.5 H 01/04/19 16:23: POC Glucose 308 H* 01/04/19 19:33: Vancomycin Trough 20.7 H 01/04/19 20:07: POC Glucose 392 H* 01/05/19 06:19: POC Glucose 191 H 01/05/19 07:50: WBC 23.0 H*, RBC 3.48 L, Hgb 10.2 L, Hct 31.2 L, MCV 89.9, MCH 29.3, MCHC 32.6, RDW 13.7, Plt Count 414, MPV 6.5 L, Neut % (Auto) 78.6, Lymph % (Auto) 12.2, [place] % (Auto) 8.8, Eos % (Auto) 0.1, Baso % (Auto) 0.3, Neut # (Auto) 18.1 H, Lymph # (Auto) 2.8, [place] # (Auto) 2.0 H, Eos # (Auto) 0.0, Baso # (Auto) 0.1, Total Counted 100, Neutrophils % (Manual) 80 H, Band Neutrophils % 3.0, Lymphocytes % (Manual) 10, Monocytes % (Manual) 7, Platelet Estimate Normal 01/05/19 07:50: Sodium 118 L, Potassium 4.6, Chloride 83 L, Carbon Dioxide 32, Anion Gap 7.6, BUN 17, Creatinine 0.92, Estimated Creat Clear 82, Estimated GFR 83, Est GFR ( Amer) 100, Glucose 254 H, Calcium 8.0 L I & O for Last 24 hours: Intake & Output 01/02/19 01/03/19 01/04/19 01/05/19 23:59 23:59 23:59 23:59 Intake Total 2542 / 2542 5543 / 5543 2678 / 2678 1585 / 1585 Output Total 3500 / 3500 5800 / 5800 4275 / 5000 1325 / 1325 Balance -958 / -958 -257 / -257 -1597 / -2322 260 / 260 Weight 158.8 kg 158.8 kg 150.9 kg Microbiology Reports for the Last 24 Hours: Microbiology 12/31/18 18:13 Urine,[place] Urine Culture - Final Aerococcus urinae 12/31/18 19:50 Blood Blood Culture - Preliminary Staphylococcus capitis 01/04/19 12:40 Synovial Fluid - Aspirate Gram Stain - Final Assessment and Plan (1) Leukocytosis Current visit: Yes Status: Acute Qualifiers: Leukocytosis type: unspecified Qualified Code(s): D72.829 - Elevated white blood cell count, unspecified Category: Medical Code(s): D72.829 - Elevated white blood cell count, unspecified (2) Hyponatremia Current visit: Yes Status: Acute Category: Medical Code(s): E87.1 - Hypo- osmolality and hyponatremia (3) Debility Current visit: No Status: Acute Category: Medical Code(s): R53.81 - Other malaise (4) Elevated troponin Current visit: Yes Status: Acute Category: Medical Code(s): R74.8 - Abnormal levels of other serum enzymes (5) Dislocation of shoulder, anterior, right, closed Current visit: No Status: Acute Qualifiers: Encounter type: initial encounter Qualified Code(s): S43.014A - Anterior dislocation of right humerus, initial encounter Category: Medical Code(s): S43.014A - Anterior dislocation of right humerus, initial encounter (6) Dyspnea Current visit: Yes Status: Acute Qualifiers: Dyspnea type: dyspnea on exertion Qualified Code(s): R06.09 - Other forms of dyspnea Category: Medical Code(s): R06.00 - Dyspnea, unspecified (7) Diabetes mellitus Current visit: No Status: Chronic Category: Medical Code(s): E11.9 - Type 2 diabetes mellitus without complications (8) Elevated d-dimer Current visit: Yes Status: Acute Category: Medical Code(s): R79.89 - Other specified abnormal findings of blood chemistry (9) Normal pressure hydrocephalus Current visit: No Status: Chronic Category: Medical Code(s): G91.2 - (Idiopathic) normal pressure hydrocephalus (10) Ventriculo-peritoneal shunt status Current visit: No Status: Chronic Category: Surgical Code(s): Z98.2 - Presence of cerebrospinal fluid drainage device (11) Hyperkalemia Current visit: Yes Status: Acute Category: Medical Code(s): E87.5 - Hyperkalemia (12) Obesity, Class III, BMI 40-49.9 (morbid obesity) Current visit: No Status: Chronic Category: Medical Code(s): E66.01 - Morbid (severe) obesity due to excess calories (13) Anxiety disorder Current visit: No Status: Chronic Category: Medical Code(s): F41.9 - Anxiety disorder, unspecified (14) Hypothyroidism Current visit: No Status: Chronic Category: Medical Code(s): E03.9 - Hypothyroidism, unspecified (15) Constipation Current visit: Yes Status: Acute Category: Medical Code(s): K59.00 - Constipation, unspecified (16) Left knee pain Current visit: Yes Status: Acute Category: Medical Code(s): M25.562 - Pain in left knee (17) Sepsis Current visit: Yes Status: Acute Category: Medical Code(s): A41.9 - Sepsis, unspecified organism The patient's infection will respond to the chosen ABx?: Yes Is the patient receiving the right drug, dose, and route?: Yes Could a more targeted ABx be ordered?: No (S. CAPITIS SENSITIVE TO VANC, BUT WBC STILL INCREASING. ID CONSULT)
--- NOTE | 2019-01-05 16:35 | Progress Note ---
Internal Medicine - PN: Subj *Date: 01/05/19 *Time: 15:47 Interval history: Dr. Corona spoke with [facility]'s regarding possible transfer of patient, especially with regard to Infectious Disease consult. I got to speak with Dr. Salinas, hospitalist, and then to Dr. Agus Telles, Infectious disease. Due to the bed situation it seems unlikely that transfer will be accomplished, thus Dr. Telles spent some time speaking with me about patient. With consideration of [employer]ILY [employer]IV[employer]UC[employer] shunt presence he advised broader antibiotic coverage: Cefepime(d/c Ceftriaxone) and Flagyl in addition to the Vancomycin. Dr. Corona also spoke with Dr. Espinoza who will attempt LP under fluoroscopy in AM. Exam Vital signs and Labs for Last 24 Hours: Temp Pulse Resp BP Pulse Ox 97.8 F 89 16 153/71 H 95 01/05/19 12:00 01/05/19 14:58 01/05/19 12:00 01/05/19 12:00 01/05/19 12:00 Laboratory Results - last 24 hr 01/04/19 16:23: POC Glucose 308 H* 01/04/19 19:33: Vancomycin Trough 20.7 H 01/04/19 20:07: POC Glucose 392 H* 01/05/19 06:19: POC Glucose 191 H 01/05/19 07:50: WBC 23.0 H*, RBC 3.48 L, Hgb 10.2 L, Hct 31.2 L, MCV 89.9, MCH 29.3, MCHC 32.6, RDW 13.7, Plt Count 414, MPV 6.5 L, Neut % (Auto) 78.6, Lymph % (Auto) 12.2, [place] % (Auto) 8.8, Eos % (Auto) 0.1, Baso % (Auto) 0.3, Neut # (Auto) 18.1 H, Lymph # (Auto) 2.8, [place] # (Auto) 2.0 H, Eos # (Auto) 0.0, Baso # (Auto) 0.1, Total Counted 100, Neutrophils % (Manual) 80 H, Band Neutrophils % 3.0, Lymphocytes % (Manual) 10, Monocytes % (Manual) 7, Platelet Estimate Normal 01/05/19 07:50: Sodium 118 L, Potassium 4.6, Chloride 83 L, Carbon Dioxide 32, Anion Gap 7.6, BUN 17, Creatinine 0.92, Estimated Creat Clear 82, Estimated GFR 83, Est GFR ( Amer) 100, Glucose 254 H, Calcium 8.0 L 01/05/19 11:25: POC Glucose 282 H I & O for Last 24 hours: Intake & Output 01/03/19 01/04/19 01/05/19 01/06/19 11:59 11:59 11:59 11:59 Intake Total 5027 / 5027 3743 / 3743 3078 / 3078 Output Total 3600 / 3600 5275 / 5275 4425 / 4425 Balance 1427 / 1427 -1532 / -1532 -1347 / -1347 Weight 350 lb 1.505 oz 350 lb 1.505 oz 332 lb 10.841 oz Microbiology Reports for the Last 24 Hours: Microbiology 01/04/19 12:40 Synovial Fluid - Aspirate Gram Stain - Final 01/04/19 12:40 Synovial Fluid - Aspirate Body Fluid Culture - Preliminary NO GROWTH AFTER 24 HOURS 12/31/18 18:13 Urine,[place] Urine Culture - Final Aerococcus urinae 12/31/18 19:50 Blood Blood Culture - Preliminary Staphylococcus capitis Assessment and Plan (1) Leukocytosis Current visit: Yes Status: Acute Qualifiers: Leukocytosis type: unspecified Qualified Code(s): D72.829 - Elevated white blood cell count, unspecified Category: Medical Code(s): D72.829 - Elevated white blood cell count, unspecified (2) Hyponatremia Current visit: Yes Status: Acute Category: Medical Code(s): E87.1 - Hypo-osmolality and hyponatremia (3) Debility Current visit: No Status: Acute Category: Medical Code(s): R53.81 - Other malaise (4) Elevated troponin Current visit: Yes Status: Acute Category: Medical Code(s): R74.8 - Abnormal levels of other serum enzymes (5) Dislocation of shoulder, anterior, right, closed Current visit: No Status: Acute Qualifiers: Encounter type: initial encounter Qualified Code(s): S43.014A - Anterior dislocation of right humerus, initial encounter Category: Medical Code(s): S43.014A - Anterior dislocation of right humerus, initial encounter (6) Dyspnea Current visit: Yes Status: Acute Qualifiers: Dyspnea type: dyspnea on exertion Qualified Code(s): R06.09 - Other forms of dyspnea Category: Medical Code(s): R06.00 - Dyspnea, unspecified (7) Diabetes mellitus Current visit: No Status: Chronic Category: Medical Code(s): E11.9 - Type 2 diabetes mellitus without complications (8) Elevated d-dimer Current visit: Yes Status: Acute Category: Medical Code(s): R79.89 - Other specified abnormal findings of blood chemistry (9) Normal pressure hydrocephalus Current visit: No Status: Chronic Category: Medical Code(s): G91.2 - (Idiopathic) normal pressure hydrocephalus (10) Ventriculo-peritoneal shunt status Current visit: No Status: Chronic Category: Surgical Code(s): Z98.2 - Presence of cerebrospinal fluid drainage device (11) Hyperkalemia Current visit: Yes Status: Acute Category: Medical Code(s): E87.5 - Hyperkalemia (12) Obesity, Class III, BMI 40-49.9 (morbid obesity) Current visit: No Status: Chronic Category: Medical Code(s): E66.01 - Morbid (severe) obesity due to excess calories (13) Anxiety disorder Current visit: No Status: Chronic Category: Medical Code(s): F41.9 - Anxiety disorder, unspecified (14) Hypothyroidism Current visit: No Status: Chronic Category: Medical Code(s): E03.9 - Hypothyroidism, unspecified (15) Constipation Current visit: Yes Status: Acute Category: Medical Code(s): K59.00 - Constipation, unspecified (16) Left knee pain Current visit: Yes Status: Acute Category: Medical Code(s): M25.562 - Pain in left knee (17) Sepsis Current visit: Yes Status: Acute Category: Medical Code(s): A41.9 - Sepsis, unspecified organism
--- NOTE | 2019-01-06 08:30 | Progress Note ---
Internal Medicine - PN: Subj *Date: 01/06/19 *Time: 13:25 Interval history: Patient is sleeping this morning. He states he did not go to bed until late last night. He is n.p.o. for ultrasound-guided lumbar puncture this a.m. He denies chest pain and shortness of breath. His left knee continues to hurt but is less. He continues with a [place] catheter to bedside drainage. Labs are pending. Exam Vital signs and Labs for Last 24 Hours: Temp Pulse Resp BP Pulse Ox 98.1 F 88 18 124/60 95 01/06/19 03:38 01/06/19 05:49 01/06/19 03:38 01/06/19 03:38 01/06/19 05:49 Laboratory Results - last 24 hr 01/05/19 07:50: Total Counted 100, Neutrophils % (Manual) 80 H, Band Neutrophils % 3.0, Lymphocytes % (Manual) 10, Monocytes % (Manual) 7, Platelet Estimate Normal 01/05/19 11:25: POC Glucose 282 H 01/05/19 16:19: POC Glucose 353 H* 01/05/19 20:08: POC Glucose 413 H* 01/06/19 06:06: POC Glucose 171 H I & O for Last 24 hours: Intake & Output 01/03/19 01/04/19 01/05/19 01/06/19 11:59 11:59 11:59 11:59 Intake Total 5027 / 5027 3743 / 3743 3078 / 3078 3129 / 3129 Output Total 3600 / 3600 5275 / 5275 4425 / 4425 5550 / 5550 Balance 1427 / 1427 -1532 / -1532 -1347 / -1347 -2421 / -2421 Weight 350 lb 1.505 oz 350 lb 1.505 oz 332 lb 10.841 oz 348 lb 12.34 oz Microbiology Reports for the Last 24 Hours: Microbiology 01/04/19 12:40 Synovial Fluid - Aspirate Gram Stain - Final 01/04/19 12:40 Synovial Fluid - Aspirate Body Fluid Culture - Preliminary NO GROWTH AFTER 24 HOURS 12/31/18 18:13 Urine,[place] Urine Culture - Final Aerococcus urinae 12/31/18 19:50 Blood Blood Culture - Preliminary Staphylococcus capitis - Constitutional no acute distress Comments: Sleepy but awakens easily and answers questions appropriately. - *Routine Respiratory Exam Present: CTA bilaterally - *Routine Cardiovascular Exam Present: RRR - *Routine Abdominal Exam Present: soft, normoactive bowel sounds. Absent: tenderness - *Routine Extremities Exam Comments: Edema and continued ecchymosis of the left knee. Edema extends down to the ankle. Right leg with trace edema. He can move both legs easier today. He can move his right arm easier today as well. - *Routine Neurological Exam Present: alert, oriented X3 Assessment and Plan (1) Leukocytosis Current visit: Yes Status: Acute Qualifiers: Leukocytosis type: unspecified Qualified Code(s): D72.829 - Elevated white blood cell count, unspecified Category: Medical Code(s): D72.829 - Elevated white blood cell count, unspecified (2) Hyponatremia Current visit: Yes Status: Acute Category: Medical Code(s): E87.1 - Hypo- osmolality and hyponatremia (3) Debility Current visit: No Status: Acute Category: Medical Code(s): R53.81 - Other malaise (4) Elevated troponin Current visit: Yes Status: Acute Category: Medical Code(s): R74.8 - Abnormal levels of other serum enzymes (5) Dislocation of shoulder, anterior, right, closed Current visit: No Status: Acute Qualifiers: Encounter type: initial encounter Qualified Code(s): S43.014A - Anterior dislocation of right humerus, initial encounter Category: Medical Code(s): S43.014A - Anterior dislocation of right humerus, initial encounter (6) Dyspnea Current visit: Yes Status: Acute Qualifiers: Dyspnea type: dyspnea on exertion Qualified Code(s): R06.09 - Other forms of dyspnea Category: Medical Code(s): R06.00 - Dyspnea, unspecified (7) Diabetes mellitus Current visit: No Status: Chronic Category: Medical Code(s): E11.9 - Type 2 diabetes mellitus without complications (8) Elevated d-dimer Current visit: Yes Status: Acute Category: Medical Code(s): R79.89 - Other specified abnormal findings of blood chemistry (9) Normal pressure hydrocephalus Current visit: No Status: Chronic Category: Medical Code(s): G91.2 - (Idiopathic) normal pressure hydrocephalus (10) Ventriculo-peritoneal shunt status Current visit: No Status: Chronic Category: Surgical Code(s): Z98.2 - Presence of cerebrospinal fluid drainage device (11) Hyperkalemia Current visit: Yes Status: Acute Category: Medical Code(s): E87.5 - Hyperkalemia (12) Obesity, Class III, BMI 40-49.9 (morbid obesity) Current visit: No Status: Chronic Category: Medical Code(s): E66.01 - Morbid (severe) obesity due to excess calories (13) Anxiety disorder Current visit: No Status: Chronic Category: Medical Code(s): F41.9 - Anxiety disorder, unspecified (14) Hypothyroidism Current visit: No Status: Chronic Category: Medical Code(s): E03.9 - Hypothyroidism, unspecified (15) Constipation Current visit: Yes Status: Acute Category: Medical Code(s): K59.00 - Constipation, unspecified (16) Left knee pain Current visit: Yes Status: Acute Category: Medical Code(s): M25.562 - Pain in left knee (17) Sepsis Current visit: Yes Status: Acute Category: Medical Code(s): A41.9 - Sepsis, unspecified organism - Assessment and plan all Dx Assessment and Plan for all problems:: for US guided lumbar puncture today; encouraged to get OOB; cont with ABX
[2019-01-06 08:58] LABS: Basophils # 0.1 K/mm3 (0-0.2); Basophils % 0.2 % (0.1-2.0); Eosinophils % 0.1 % (0.1-12.0); Hematocrit 30.6 % (42.0-52.0); Lymphocytes # 2.6 K/mm3 (0.7-4.5); Lymphocytes % 11.7 % (10-50); Mean Corpuscular HGB Conc 32.7 g/dL (31.8-35.4); Mean Corpuscular Volume 90.5 fl (80-94); Mean Platelet Volume 7.6 fl (7.4-10.4); Monocytes % 9.3 % (1.7-9.3); Neutrophils # 17.3 K/mm3 (1.8-7.8); Neutrophils % 78.7 % (37.0-80.0); Platelet Count 374 K/mm3 (142-424); Red Blood Count 3.38 M/mm3 (4.60-6.20); Red Cell Distribution Width 13.9 % (11.5-17.5)
[2019-01-06 09:04] LABS: Anion Gap 5.6 mEq/L (5-15); Calcium 8.5 mg/dL (8.5-10.1)
[2019-01-06 10:51] LABS: Lymphocytes % 12 % (10-50); Monocytes % 3 % (2-9); Neutrophils % 80 % (42-76); Total Cells Counted 100
[2019-01-06 10:52] LABS: RBC Morphology Normal
--- NOTE | 2019-01-06 15:23 | Pharmacy Consult Notes ---
- Pharmacy Consult Date: 01/06/19 Time: 15:22 Referring provider: DR. SANCHEZ Reason for Consult:: VANCOMYCIN LEVEL Allergies and ADEs:: Allergies Allergy/AdvReac Type Severity Reaction Status Date / Time No Known Drug Allergies Allergy Unknown Verified 12/26/18 12:39 Home Medications:: Home Medications Medication Instructions Recorded Confirmed Type divalproex 500 mg tablet,delayed 1,000 mg PO HS #180 tab 12/15/18 12/31/18 History release exenatide ER 2 mg/0.65 mL 2 mg SQ WEEKLY #4 each 12/15/18 12/31/18 History subcutaneous pen injector ezetimibe 10 mg tablet 10 mg PO 1200 #90 tab 12/15/18 01/01/19 History glimepiride 4 mg tablet 4 mg PO DAILY #90 tab 12/15/18 12/31/18 History insulin glargine (U-100) 100 55 units SQ DAILY #10 ml 12/15/18 12/31/18 History unit/mL subcutaneous solution levothyroxine 100 mcg tablet 100 mcg PO DAILY #30 tab 12/15/18 12/31/18 History meclizine 25 mg tablet 25 mg PO TID #90 tab 12/15/18 12/31/18 History niacin ER 500 mg tablet,extended 500 mg PO HS #90 tab 12/15/18 12/31/18 History release 24 hr olanzapine 5 mg tablet 5 mg PO HS #90 tab 12/15/18 01/01/19 History oxybutynin chloride 5 mg tablet 5 mg PO 0900,1700 #180 tab 12/15/18 01/01/19 History pioglitazone 15 mg tablet 15 mg PO DAILY #60 tab 12/15/18 12/31/18 History potassium chloride ER 20 mEq 20 meq PO DAILY #90 tab 12/15/18 12/31/18 History tablet,extended release(part/cryst) spironolactone 25 mg tablet 25 mg PO 1700 #90 tab 12/15/18 01/01/19 History Ascorbic Acid/Ascorbate Sodium 500 mg PO DAILY 12/26/18 12/31/18 History [Vitamin C 250 mg Tablet Chew] Aspirin [Aspirin 325mg Tab] 325 mg PO HS 12/26/18 01/01/19 History Cholecalciferol (Vitamin D3) 1,000 unit PO DAILY 12/26/18 12/31/18 History [Vitamin D3 1,000 Unit Cap] Cyanocobalamin (Vitamin B-12) 2,500 mcg SL DAILY 12/26/18 12/31/18 History [B-12] Furosemide [Furosemide 40MG tAB] 40 mg PO 0900,1200 12/26/18 01/01/19 History Hydrocodone/Acetaminophen [Lortab 1 tab PO TIDP PRN #90 tab 12/30/18 12/31/18 Rx 7.5/325mg tablet] Height: 1.83 m Weight: 158.2 kg Laboratory Results:: Laboratory Results - last 24 hr 01/04/19 06:10: Serum Osmolality 248 L 01/05/19 16:19: POC Glucose 353 H* 01/05/19 20:08: POC Glucose 413 H* 01/06/19 06:06: POC Glucose 171 H 01/06/19 08:48: WBC 22.0 H*, RBC 3.38 L, Hgb 10.0 L, Hct 30.6 L, MCV 90.5, MCH 29.5, MCHC 32.7, RDW 13.9, Plt Count 374, MPV 7.6, Neut % (Auto) 78.7, Lymph % (Auto) 11.7, [place] % (Auto) 9.3, Eos % (Auto) 0.1, Baso % (Auto) 0.2, Neut # (Auto) 17.3 H, Lymph # (Auto) 2.6, [place] # (Auto) 2.0 H, Eos # (Auto) 0.0, Baso # (Auto) 0.1, Total Counted 100, Neutrophils % (Manual) 80 H, Band Neutrophils % 4.0, Lymphocytes % (Manual) 12, Monocytes % (Manual) 3, Metamyelocytes % 1.0, Platelet Estimate Normal, RBC Morphology Normal 01/06/19 08:48: Sodium 126 L, Potassium 4.6, Chloride 89 L, Carbon Dioxide 36 H, Anion Gap 5.6, BUN 17, Creatinine 0.81, Estimated Creat Clear 82, Estimated GFR 96, Est GFR ( Amer) 116, Glucose 187 H, Calcium 8.5 01/06/19 11:54: POC Glucose 281 H 01/06/19 13:26: Vancomycin Trough 18.1 Medical History: Reports:: Diabetes Mellitus Type 2, Hyperlipidemia, Hypertension Denies:: Cancer Assessment and Plan (1) Leukocytosis Current visit: Yes Status: Acute Qualifiers: Leukocytosis type: unspecified Qualified Code(s): D72.829 - Elevated white blood cell count, unspecified Category: Medical Code(s): D72.829 - Elevated white blood cell count, unspecified (2) Hyponatremia Current visit: Yes Status: Acute Category: Medical Code(s): E87.1 - Hypo- osmolality and hyponatremia (3) Debility Current visit: No Status: Acute Category: Medical Code(s): R53.81 - Other malaise (4) Elevated troponin Current visit: Yes Status: Acute Category: Medical Code(s): R74.8 - Abnormal levels of other serum enzymes (5) Dislocation of shoulder, anterior, right, closed Current visit: No Status: Acute Qualifiers: Encounter type: initial encounter Qualified Code(s): S43.014A - Anterior dislocation of right humerus, initial encounter Category: Medical Code(s): S43.014A - Anterior dislocation of right humerus, initial encounter (6) Dyspnea Current visit: Yes Status: Acute Qualifiers: Dyspnea type: dyspnea on exertion Qualified Code(s): R06.09 - Other forms of dyspnea Category: Medical Code(s): R06.00 - Dyspnea, unspecified (7) Diabetes mellitus Current visit: No Status: Chronic Category: Medical Code(s): E11.9 - Type 2 diabetes mellitus without complications (8) Elevated d-dimer Current visit: Yes Status: Acute Category: Medical Code(s): R79.89 - Other specified abnormal findings of blood chemistry (9) Normal pressure hydrocephalus Current visit: No Status: Chronic Category: Medical Code(s): G91.2 - (Idiopathic) normal pressure hydrocephalus (10) Ventriculo-peritoneal shunt status Current visit: No Status: Chronic Category: Surgical Code(s): Z98.2 - Presence of cerebrospinal fluid drainage device (11) Hyperkalemia Current visit: Yes Status: Acute Category: Medical Code(s): E87.5 - Hyperkalemia (12) Obesity, Class III, BMI 40-49.9 (morbid obesity) Current visit: No Status: Chronic Category: Medical Code(s): E66.01 - Morbid (severe) obesity due to excess calories (13) Anxiety disorder Current visit: No Status: Chronic Category: Medical Code(s): F41.9 - Anxiety disorder, unspecified (14) Hypothyroidism Current visit: No Status: Chronic Category: Medical Code(s): E03.9 - Hypothyroidism, unspecified (15) Constipation Current visit: Yes Status: Acute Category: Medical Code(s): K59.00 - Constipation, unspecified (16) Left knee pain Current visit: Yes Status: Acute Category: Medical Code(s): M25.562 - Pain in left knee (17) Sepsis Current visit: Yes Status: Acute Category: Medical Code(s): A41.9 - Sepsis, unspecified organism - Assessment and plan all Dx Assessment and Plan for all problems:: BASED ON PATIENT'S VANCOMYCIN TROUGH LEVEL OF 18.1 MCG/ML, RECOMMEND CONTINUING WITH VANCOMYCIN 2750 MG Q18H AT THIS TIME. PHARMACY WILL FOLLOW DAILY AND ADJUST APPROPRIATE. DOROTHY GUAJARDO, PHARMD
[2019-01-07 07:58] LABS: Anion Gap 6.8 mEq/L (5-15); Basophils # 0.1 K/mm3 (0-0.2); Basophils % 0.3 % (0.1-2.0); Calcium 8.4 mg/dL (8.5-10.1); Eosinophils # 0.1 K/mm3 (0.0-0.4); Eosinophils % 0.4 % (0.1-12.0); Hematocrit 29.9 % (42.0-52.0); Hemoglobin 9.6 g/dL (14.1-18.0); Lymphocytes # 2.5 K/mm3 (0.7-4.5); Mean Corpuscular HGB Conc 32.1 g/dL (31.8-35.4); Mean Corpuscular Volume 91.9 fl (80-94); Mean Platelet Volume 6.7 fl (7.4-10.4); Monocytes % 10.4 % (1.7-9.3); Neutrophils # 14.8 K/mm3 (1.8-7.8); Neutrophils % 75.9 % (37.0-80.0); Platelet Count 342 K/mm3 (142-424); Red Blood Count 3.25 M/mm3 (4.60-6.20); White Blood Count 19.5 K/mm3 (4.8-10.8)
--- NOTE | 2019-01-07 08:25 | Progress Note ---
Internal Medicine - PN: Subj *Date: 01/07/19 *Time: 08:22 Interval history: He is resting in bed watching tv without complaint other than some "soreness" in bilateral legs, states he feels "okay". He denies any pain or SOB. He is waiting to be repositioned so that he can eat breakfast. Exam Vital signs and Labs for Last 24 Hours: Temp Pulse Resp BP Pulse Ox 98.4 F 70 20 110/57 L 97 01/07/19 04:00 01/07/19 06:02 01/07/19 04:00 01/07/19 04:00 01/07/19 06:02 Laboratory Results - last 24 hr 01/04/19 06:10: Serum Osmolality 248 L 01/06/19 08:48: WBC 22.0 H*, RBC 3.38 L, Hgb 10.0 L, Hct 30.6 L, MCV 90.5, MCH 29.5, MCHC 32.7, RDW 13.9, Plt Count 374, MPV 7.6, Neut % (Auto) 78.7, Lymph % (Auto) 11.7, [place] % (Auto) 9.3, Eos % (Auto) 0.1, Baso % (Auto) 0.2, Neut # (Auto) 17.3 H, Lymph # (Auto) 2.6, [place] # (Auto) 2.0 H, Eos # (Auto) 0.0, Baso # (Auto) 0.1, Total Counted 100, Neutrophils % (Manual) 80 H, Band Neutrophils % 4.0, Lymphocytes % (Manual) 12, Monocytes % (Manual) 3, Metamyelocytes % 1.0, Platelet Estimate Normal, RBC Morphology Normal 01/06/19 08:48: Sodium 126 L, Potassium 4.6, Chloride 89 L, Carbon Dioxide 36 H, Anion Gap 5.6, BUN 17, Creatinine 0.81, Estimated Creat Clear 82, Estimated GFR 96, Est GFR ( Amer) 116, Glucose 187 H, Calcium 8.5 01/06/19 11:54: POC Glucose 281 H 01/06/19 13:26: Vancomycin Trough 18.1 01/06/19 16:24: POC Glucose 425 H* 01/06/19 21:13: POC Glucose 371 H* 01/07/19 06:39: POC Glucose 162 H 01/07/19 07:18: WBC 19.5 H, RBC 3.25 L, Hgb 9.6 L, Hct 29.9 L, MCV 91.9, MCH 29.5, MCHC 32.1, RDW 14.0, Plt Count 342, MPV 6.7 L, Neut % (Auto) 75.9, Lymph % (Auto) 13.0, [place] % (Auto) 10.4 H, Eos % (Auto) 0.4, Baso % (Auto) 0.3, Neut # (Auto) 14.8 H, Lymph # (Auto) 2.5, [place] # (Auto) 2.0 H, Eos # (Auto) 0.1, Baso # (Auto) 0.1 01/07/19 07:18: Sodium 127 L, Potassium 4.8, Chloride 91 L, Carbon Dioxide 34 H, Anion Gap 6.8, BUN 21 H, Creatinine 0.79, Estimated Creat Clear 82, Estimated GFR 99, Est GFR ( Amer) 119, Glucose 164 H, Calcium 8.4 L I & O for Last 24 hours: Intake & Output 01/04/19 01/05/19 01/06/19 01/07/19 11:59 11:59 11:59 11:59 Intake Total 3743 / 3743 3078 / 3078 3709 / 3709 2659 / 2659 Output Total 5275 / 5275 4425 / 4425 6400 / 6400 4650 / 4650 Balance -1532 / -1532 -1347 / -1347 -2691 / -2691 -1990 / Weight 350 lb 1.505 oz 332 lb 10.841 oz 348 lb 12.34 oz 350 lb 3 oz Microbiology Reports for the Last 24 Hours: Microbiology 01/04/19 12:40 Synovial Fluid - Aspirate Gram Stain - Final 01/04/19 12:40 Synovial Fluid - Aspirate Body Fluid Culture - Preliminary NO GROWTH AFTER 48 HOURS 12/31/18 19:50 Blood Blood Culture - Final NO GROWTH AFTER 5 DAYS - Constitutional no acute distress - *Routine HEENT Exam Head: Present: normocephalic ENT: Present: mucous membranes moist - *Routine Respiratory Exam Comments: good air movement with rhonchi and wheezes throughout anteriorly and laterally - *Routine Cardiovascular Exam Present: RRR - *Routine Abdominal Exam Comments: BS x 4, soft, mildly and diffusely ttp throughout, obese, no G/M/R - *Routine Extremities Exam Comments: 1+ pitting edema RLE, 2+ pitting edema LLE - *Routine Neurological Exam Present: alert, oriented X3. Absent: facial asymmetry limited movement of RUE and BLE Assessment and Plan (1) Leukocytosis Current visit: Yes Status: Acute Qualifiers: Leukocytosis type: unspecified Qualified Code(s): D72.829 - Elevated white blood cell count, unspecified Category: Medical Code(s): D72.829 - Elevated white blood cell count, unspecified (2) Hyponatremia Current visit: Yes Status: Acute Category: Medical Code(s): E87.1 - Hypo- osmolality and hyponatremia (3) Debility Current visit: No Status: Acute Category: Medical Code(s): R53.81 - Other malaise (4) Elevated troponin Current visit: Yes Status: Acute Category: Medical Code(s): R74.8 - Abnormal levels of other serum enzymes (5) Dislocation of shoulder, anterior, right, closed Current visit: No Status: Acute Qualifiers: Encounter type: initial encounter Qualified Code(s): S43.014A - Anterior dislocation of right humerus, initial encounter Category: Medical Code(s): S43.014A - Anterior dislocation of right humerus, initial encounter (6) Dyspnea Current visit: Yes Status: Acute Qualifiers: Dyspnea type: dyspnea on exertion Qualified Code(s): R06.09 - Other forms of dyspnea Category: Medical Code(s): R06.00 - Dyspnea, unspecified (7) Diabetes mellitus Current visit: No Status: Chronic Category: Medical Code(s): E11.9 - Type 2 diabetes mellitus without complications (8) Elevated d-dimer Current visit: Yes Status: Acute Category: Medical Code(s): R79.89 - Other specified abnormal findings of blood chemistry (9) Normal pressure hydrocephalus Current visit: No Status: Chronic Category: Medical Code(s): G91.2 - (Idiopathic) normal pressure hydrocephalus (10) Ventriculo-peritoneal shunt status Current visit: No Status: Chronic Category: Surgical Code(s): Z98.2 - Presence of cerebrospinal fluid drainage device (11) Hyperkalemia Current visit: Yes Status: Acute Category: Medical Code(s): E87.5 - Hyperkalemia (12) Obesity, Class III, BMI 40-49.9 (morbid obesity) Current visit: No Status: Chronic Category: Medical Code(s): E66.01 - Morbid (severe) obesity due to excess calories (13) Anxiety disorder Current visit: No Status: Chronic Category: Medical Code(s): F41.9 - Anxiety disorder, unspecified (14) Hypothyroidism Current visit: No Status: Chronic Category: Medical Code(s): E03.9 - Hypothyroidism, unspecified (15) Constipation Current visit: Yes Status: Acute Category: Medical Code(s): K59.00 - Constipation, unspecified (16) Left knee pain Current visit: Yes Status: Acute Category: Medical Code(s): M25.562 - Pain in left knee (17) Sepsis Current visit: Yes Status: Acute Category: Medical Code(s): A41.9 - Sepsis, unspecified organism - Assessment and plan all Dx Assessment and Plan for all problems:: WBC is slightly improved this morning while Hgb has decreased. Results of LP pending. Further per Dr. Corona.
[2019-01-07 08:41] LABS: Lymphocytes % 11 % (10-50); Monocytes % 9 % (2-9); Neutrophils % 78 % (42-76); RBC Morphology Normal; Total Cells Counted 100
[2019-01-08 06:41] LABS: Basophils # 0.1 K/mm3 (0-0.2); Basophils % 0.3 % (0.1-2.0); Eosinophils # 0.1 K/mm3 (0.0-0.4); Eosinophils % 0.4 % (0.1-12.0); Hematocrit 30.2 % (42.0-52.0); Hemoglobin 9.4 g/dL (14.1-18.0); Lymphocytes # 2.1 K/mm3 (0.7-4.5); Lymphocytes % 10.3 % (10-50); Mean Corpuscular HGB Conc 31.1 g/dL (31.8-35.4); Mean Corpuscular Volume 93.5 fl (80-94); Mean Platelet Volume 6.9 fl (7.4-10.4); Monocytes # 1.9 K/mm3 (0.1-1.0); Monocytes % 9.2 % (1.7-9.3); Neutrophils # 16.5 K/mm3 (1.8-7.8); Neutrophils % 79.8 % (37.0-80.0); Platelet Count 420 K/mm3 (142-424); Red Blood Count 3.23 M/mm3 (4.60-6.20); Red Cell Distribution Width 13.8 % (11.5-17.5); White Blood Count 20.7 K/mm3 (4.8-10.8)
--- NOTE | 2019-01-08 08:28 | Progress Note ---
Internal Medicine - PN: Subj *Date: 01/08/19 *Time: 08:25 Interval history: Pt is sitting up in bed watching tv without complaint. He is NPO for LP this morning. He has no complaint, denies any pain or SOB. His bowels moved yesterday. Exam Vital signs and Labs for Last 24 Hours: Temp Pulse Resp BP Pulse Ox 97.7 F 83 18 136/76 96 01/08/19 07:55 01/08/19 07:55 01/08/19 07:55 01/08/19 07:55 01/08/19 07:55 Laboratory Results - last 24 hr 01/07/19 07:18: Total Counted 100, Neutrophils % (Manual) 78 H, Band Neutrophils % 2.0, Lymphocytes % (Manual) 11, Monocytes % (Manual) 9, Platelet Estimate Normal, RBC Morphology Normal 01/07/19 11:20: POC Glucose 278 H 01/07/19 16:17: POC Glucose 399 H* 01/07/19 20:19: POC Glucose 404 H* 01/08/19 06:10: WBC 20.7 H*, RBC 3.23 L, Hgb 9.4 L, Hct 30.2 L, MCV 93.5, MCH 29.1, MCHC 31.1 L, RDW 13.8, Plt Count 420, MPV 6.9 L, Neut % (Auto) 79.8, Lymph % (Auto) 10.3, [place] % (Auto) 9.2, Eos % (Auto) 0.4, Baso % (Auto) 0.3, Neut # (Auto) 16.5 H, Lymph # (Auto) 2.1, [place] # (Auto) 1.9 H, Eos # (Auto) 0.1, Baso # (Auto) 0.1 I & O for Last 24 hours: Intake & Output 01/05/19 01/06/19 01/07/19 01/08/19 11:59 11:59 11:59 11:59 Intake Total 3078 / 3078 3709 / 3709 2999 / 2999 4084 / 4084 Output Total 4425 / 4425 6400 / 6400 4900 / 4900 2600 / 2600 Balance -1347 / -1347 -2691 / -2691 -1901 / -1901 1484 / 1484 Weight 332 lb 10.841 oz 348 lb 12.34 oz 350 lb 3 oz 350 lb Microbiology Reports for the Last 24 Hours: Microbiology 01/04/19 12:40 Synovial Fluid - Aspirate Gram Stain - Final 01/04/19 12:40 Synovial Fluid - Aspirate Body Fluid Culture - Preliminary NO GROWTH AFTER 72 HOURS - Constitutional no acute distress - *Routine HEENT Exam Head: Present: normocephalic ENT: Present: mucous membranes moist - *Routine Respiratory Exam Comments: good air movement with scattered rhonchi and expiratory wheezes - *Routine Cardiovascular Exam Present: RRR - *Routine Abdominal Exam Present: soft, normoactive bowel sounds. Absent: tenderness, distended, rebound, guarding, rigid Comments: obese - *Routine Extremities Exam Comments: 1+ RLE edema, 2+ LLE edema - *Routine Neurological Exam Present: alert, oriented X3. Absent: facial asymmetry Assessment and Plan (1) Leukocytosis Current visit: Yes Status: Acute Qualifiers: Leukocytosis type: unspecified Qualified Code(s): D72.829 - Elevated white blood cell count, unspecified Category: Medical Code(s): D72.829 - Elevated white blood cell count, unspecified (2) Hyponatremia Current visit: Yes Status: Acute Category: Medical Code(s): E87.1 - Hypo- osmolality and hyponatremia (3) Debility Current visit: No Status: Acute Category: Medical Code(s): R53.81 - Other malaise (4) Elevated troponin Current visit: Yes Status: Acute Category: Medical Code(s): R74.8 - Abnormal levels of other serum enzymes (5) Dislocation of shoulder, anterior, right, closed Current visit: No Status: Acute Qualifiers: Encounter type: initial encounter Qualified Code(s): S43.014A - Anterior dislocation of right humerus, initial encounter Category: Medical Code(s): S43.014A - Anterior dislocation of right humerus, initial encounter (6) Dyspnea Current visit: Yes Status: Acute Qualifiers: Dyspnea type: dyspnea on exertion Qualified Code(s): R06.09 - Other forms of dyspnea Category: Medical Code(s): R06.00 - Dyspnea, unspecified (7) Diabetes mellitus Current visit: No Status: Chronic Category: Medical Code(s): E11.9 - Type 2 diabetes mellitus without complications (8) Elevated d-dimer Current visit: Yes Status: Acute Category: Medical Code(s): R79.89 - Other specified abnormal findings of blood chemistry (9) Normal pressure hydrocephalus Current visit: No Status: Chronic Category: Medical Code(s): G91.2 - (Idiopathic) normal pressure hydrocephalus (10) Ventriculo-peritoneal shunt status Current visit: No Status: Chronic Category: Surgical Code(s): Z98.2 - Presence of cerebrospinal fluid drainage device (11) Hyperkalemia Current visit: Yes Status: Acute Category: Medical Code(s): E87.5 - Hyperkalemia (12) Obesity, Class III, BMI 40-49.9 (morbid obesity) Current visit: No Status: Chronic Category: Medical Code(s): E66.01 - Morbid (severe) obesity due to excess calories (13) Anxiety disorder Current visit: No Status: Chronic Category: Medical Code(s): F41.9 - Anxiety disorder, unspecified (14) Hypothyroidism Current visit: No Status: Chronic Category: Medical Code(s): E03.9 - Hypothyroidism, unspecified (15) Constipation Current visit: Yes Status: Acute Category: Medical Code(s): K59.00 - Constipation, unspecified (16) Left knee pain Current visit: Yes Status: Acute Category: Medical Code(s): M25.562 - Pain in left knee (17) Sepsis Current visit: Yes Status: Acute Category: Medical Code(s): A41.9 - Sepsis, unspecified organism - Assessment and plan all Dx Assessment and Plan for all problems:: Clinically remains unchanged. LP this morning. Further per Dr. Corona.
[2019-01-08 08:34] LABS: Lymphocytes % 9 % (10-50); Monocytes % 9 % (2-9); Neutrophils % 75 % (42-76); Total Cells Counted 100
--- NOTE | 2019-01-08 18:08 | Progress Note ---
Subjective Date: 01/08/19 Time: 17:30 Principal diagnosis: Dyspnea Interval history: I stopped by to see the patient this evening and found him well. He just finished dinner and aside from L knee + R shoulder pain, had no complaints. The cultures from his L knee aspiration have remained negative x4 days. He has been up with PT a few times, and they have been working on exercises/ROM in bed. LP was attempted this afternoon but nothing could be collected. No reported fevers, vitals remain stable. PN: Obj Ex Vital signs: Temp Pulse Resp BP Pulse Ox 97.9 F 83 20 134/78 97 01/08/19 16:00 01/08/19 16:00 01/08/19 16:00 01/08/19 16:00 01/08/19 16:00 - Constitutional no acute distress, obese - Routine HEENT Exam Head: Present: normocephalic Eye: Present: EOMI ENT: Present: mucous membranes moist - Routine Chest/Breast/Axilla Exam Comments: L subclavian CVC - Routine Respiratory Exam Absent: accessory muscle use, wheezes - Routine Cardiovascular Exam Present: RRR - Routine Abdominal Exam Present: soft. Absent: tenderness - Routine Extremities Exam Comments: L knee with moderate effusion, mild ecchymosis --> slight improvement from last exam, but not by much no open wounds, abrasions L knee; mildly warm to touch patient tolerated gently ROM of L knee 0-90 degrees but reports pain beyond that moderate tenderness L knee; diffusely tender both medially and laterally L calf soft, non-tender +DF/PF/EHL LLE palpable pedal pulses LLE SILT distally LLE - Routine Skin Exam Present: intact, ecchymosis - Routine Neurological Exam Present: alert, oriented X3, altered mental status, moving all extremities, normal tone. Absent: sensory deficit, motor deficit - Routine Psychiatric Exam Present: normal affect - Urinary Catheter Management Rogers Cath placed during this visit: yes Urethral indwelling: No Insertion date: 12/31/18 Insertion time: 18:13 Progress Note: A&P (1) Leukocytosis Status: Acute Current Visit: Yes (2) Hyponatremia Status: Acute Current Visit: Yes (3) Debility Status: Acute Current Visit: No (4) Elevated troponin Status: Acute Current Visit: Yes (5) Dislocation of shoulder, anterior, right, closed Status: Acute Current Visit: No (6) Dyspnea Status: Acute Current Visit: Yes (7) Diabetes mellitus Status: Chronic Current Visit: No (8) Elevated d-dimer Status: Acute Current Visit: Yes (9) Normal pressure hydrocephalus Status: Chronic Current Visit: No (10) Ventriculo-peritoneal shunt status Status: Chronic Current Visit: No (11) Hyperkalemia Status: Acute Current Visit: Yes (12) Obesity, Class III, BMI 40-49.9 (morbid obesity) Status: Chronic Current Visit: No (13) Anxiety disorder Status: Chronic Current Visit: No (14) Hypothyroidism Status: Chronic Current Visit: No (15) Constipation Status: Acute Current Visit: Yes (16) Left knee pain Status: Acute Current Visit: Yes (17) Sepsis Status: Acute Current Visit: Yes (18) Hemarthrosis Status: Acute Current Visit: Yes Assessment and Plan for All Diagnoses:: 63yo M admitted with several medical issues including leukocytosis, possible bacteremia/UTI; L knee pain/hemarthrosis likely from anticoagulation -- L knee aspirated 01/04/19 and cultures remain negative -- encouraged patient to get out of bed as much as possible and to continue wo rking on ROM L knee -- ice L knee PRN -- patient does not report any recent trauma to the L knee, and says pain started spontaneously Friday (01/04) morning completely unprompted; I do not suspect fracture or other internal derangement of the knee
[2019-01-09 09:49] LABS: Basophils % 0.1 % (0.1-2.0); Eosinophils # 0.1 K/mm3 (0.0-0.4); Eosinophils % 0.4 % (0.1-12.0); Hematocrit 28.7 % (42.0-52.0); Hemoglobin 9.1 g/dL (14.1-18.0); Lymphocytes # 1.7 K/mm3 (0.7-4.5); Lymphocytes % 10.7 % (10-50); Mean Corpuscular HGB Conc 31.7 g/dL (31.8-35.4); Mean Platelet Volume 6.3 fl (7.4-10.4); Monocytes # 1.7 K/mm3 (0.1-1.0); Monocytes % 10.4 % (1.7-9.3); Neutrophils # 12.6 K/mm3 (1.8-7.8); Neutrophils % 78.5 % (37.0-80.0); Platelet Count 443 K/mm3 (142-424); Red Blood Count 3.08 M/mm3 (4.60-6.20); Red Cell Distribution Width 14.1 % (11.5-17.5); White Blood Count 16.1 K/mm3 (4.8-10.8)
--- NOTE | 2019-01-09 12:43 | Progress Note ---
Internal Medicine - PN: Subj *Date: 01/09/19 *Time: 12:42 Exam Vital signs and Labs for Last 24 Hours: Temp Pulse Resp BP Pulse Ox 98.1 F 79 18 133/65 96 01/09/19 12:00 01/09/19 12:00 01/09/19 12:00 01/09/19 12:00 01/09/19 12:00 Laboratory Results - last 24 hr 01/08/19 16:36: POC Glucose 248 H 01/08/19 20:29: POC Glucose 340 H* 01/09/19 06:08: POC Glucose 153 H 01/09/19 09:33: WBC 16.1 H, RBC 3.08 L, Hgb 9.1 L, Hct 28.7 L, MCV 93.0, MCH 29.5, MCHC 31.7 L, RDW 14.1, Plt Count 443 H, MPV 6.3 L, Neut % (Auto) 78.5, Lymph % (Auto) 10.7, [place] % (Auto) 10.4 H, Eos % (Auto) 0.4, Baso % (Auto) 0.1, Neut # (Auto) 12.6 H, Lymph # (Auto) 1.7, [place] # (Auto) 1.7 H, Eos # (Auto) 0.1, Baso # (Auto) 0.0 I & O for Last 24 hours: Intake & Output 01/06/19 01/07/19 01/08/19 01/09/19 23:59 23:59 23:59 23:59 Intake Total 4414 / 4414 1200 / 1422 3864 / 3864 2204 / 2204 Output Total 6350 / 6350 2550 / 2550 2500 / 3200 1999 / 1999 Balance -1936 / -1936 -1350 / -1128 1364 / 664 204 / 204 Weight 158.2 kg 158.842 kg 158.757 kg 159.5 kg Microbiology Reports for the Last 24 Hours: Microbiology 12/31/18 19:50 Blood Blood Culture - Final Staphylococcus capitis 01/04/19 12:40 Synovial Fluid - Aspirate Gram Stain - Final 01/04/19 12:40 Synovial Fluid - Aspirate Body Fluid Culture - Preliminary NO GROWTH AFTER 4 DAYS Assessment and Plan (1) Leukocytosis Current visit: Yes Status: Acute Qualifiers: Leukocytosis type: unspecified Qualified Code(s): D72.829 - Elevated white blood cell count, unspecified Category: Medical Code(s): D72.829 - Elevated white blood cell count, unspecified (2) Hyponatremia Current visit: Yes Status: Acute Category: Medical Code(s): E87.1 - Hypo- osmolality and hyponatremia (3) Debility Current visit: No Status: Acute Category: Medical Code(s): R53.81 - Other malaise (4) Elevated troponin Current visit: Yes Status: Acute Category: Medical Code(s): R74.8 - Abnormal levels of other serum enzymes (5) Dislocation of shoulder, anterior, right, closed Current visit: No Status: Acute Qualifiers: Encounter type: initial encounter Qualified Code(s): S43.014A - Anterior dislocation of right humerus, initial encounter Category: Medical Code(s): S43.014A - Anterior dislocation of right humerus, initial encounter (6) Dyspnea Current visit: Yes Status: Acute Qualifiers: Dyspnea type: dyspnea on exertion Qualified Code(s): R06.09 - Other forms of dyspnea Category: Medical Code(s): R06.00 - Dyspnea, unspecified (7) Diabetes mellitus Current visit: No Status: Chronic Category: Medical Code(s): E11.9 - Type 2 diabetes mellitus without complications (8) Elevated d-dimer Current visit: Yes Status: Acute Category: Medical Code(s): R79.89 - Other specified abnormal findings of blood chemistry (9) Normal pressure hydrocephalus Current visit: No Status: Chronic Category: Medical Code(s): G91.2 - (Idiopathic) normal pressure hydrocephalus (10) Ventriculo-peritoneal shunt status Current visit: No Status: Chronic Category: Surgical Code(s): Z98.2 - Presence of cerebrospinal fluid drainage device (11) Hyperkalemia Current visit: Yes Status: Acute Category: Medical Code(s): E87.5 - Hyperkalemia (12) Obesity, Class III, BMI 40-49.9 (morbid obesity) Current visit: No Status: Chronic Category: Medical Code(s): E66.01 - Morbid (severe) obesity due to excess calories (13) Anxiety disorder Current visit: No Status: Chronic Category: Medical Code(s): F41.9 - Anxiety disorder, unspecified (14) Hypothyroidism Current visit: No Status: Chronic Category: Medical Code(s): E03.9 - Hy pothyroidism, unspecified (15) Constipation Current visit: Yes Status: Acute Category: Medical Code(s): K59.00 - Constipation, unspecified (16) Left knee pain Current visit: Yes Status: Acute Category: Medical Code(s): M25.562 - Pain in left knee (17) Sepsis Current visit: Yes Status: Acute Category: Medical Code(s): A41.9 - Sepsis, unspecified organism (18) Hemarthrosis Current visit: Yes Status: Acute Category: Medical Code(s): M25.00 - Hemarthrosis, unspecified joint The patient's infection will respond to the chosen ABx?: Yes Is the patient receiving the right drug, dose, and route?: Yes Could a more targeted ABx be ordered?: No
--- NOTE | 2019-01-09 13:20 | Progress Note ---
Internal Medicine - PN: Subj *Date: 01/09/19 *Time: 13:17 Interval history: The patient states that he feels better. Clinically he is stable. He is reluctant to get out of bed. The LP by Dr. Espinoza was unsuccessful. His white blood cell count has decreased. His hemoglobin has also decreased. Exam Vital signs and Labs for Last 24 Hours: Temp Pulse Resp BP Pulse Ox 98.1 F 79 18 133/65 96 01/09/19 12:00 01/09/19 12:00 01/09/19 12:00 01/09/19 12:00 01/09/19 12:00 Laboratory Results - last 24 hr 01/08/19 16:36: POC Glucose 248 H 01/08/19 20:29: POC Glucose 340 H* 01/09/19 06:08: POC Glucose 153 H 01/09/19 09:33: WBC 16.1 H, RBC 3.08 L, Hgb 9.1 L, Hct 28.7 L, MCV 93.0, MCH 29.5, MCHC 31.7 L, RDW 14.1, Plt Count 443 H, MPV 6.3 L, Neut % (Auto) 78.5, Lymph % (Auto) 10.7, [place] % (Auto) 10.4 H, Eos % (Auto) 0.4, Baso % (Auto) 0.1, Neut # (Auto) 12.6 H, Lymph # (Auto) 1.7, [place] # (Auto) 1.7 H, Eos # (Auto) 0.1, Baso # (Auto) 0.0 Laboratory Tests 01/05/19 01/06/19 01/07/19 07:50 08:48 07:18 WBC 19.5 H Hgb 9.6 L Sodium 118 L 126 L Potassium 4.6 4.6 BUN 17 17 Creatinine 0.92 0.81 01/07/19 01/08/19 01/09/19 07:18 06:10 09:33 WBC 20.7 H* 16.1 H Hgb 9.4 L 9.1 L Sodium 127 L Potassium 4.8 BUN 21 H Creatinine 0.79 I & O for Last 24 hours: Intake & Output 01/07/19 01/08/19 01/09/19 01/10/19 11:59 11:59 11:59 11:59 Intake Total 2999 / 2999 4184 / 4184 2644 / 2644 Output Total 4900 / 4900 2600 / 2600 3700 / 3700 Balance -1901 / -1901 1584 / 1584 -1056 / -1056 Weight 350 lb 3 oz 350 lb 351 lb 10.197 oz Microbiology Reports for the Last 24 Hours: Microbiology 01/04/19 12:40 Synovial Fluid - Aspirate Gram Stain - Final 01/04/19 12:40 Synovial Fluid - Aspirate Body Fluid Culture - Final NO GROWTH AFTER 5 DAYS 12/31/18 19:50 Blood Blood Culture - Final Staphylococcus capitis - Constitutional no acute distress - *Routine HEENT Exam Eye: Present: PERRL ENT: Present: mucous membranes moist - *Routine Respiratory Exam Present: CTA bilaterally. Absent: respiratory distress - *Routine Cardiovascular Exam Present: RRR - *Routine Abdominal Exam Present: soft - *Routine Extremities Exam Present: edema (4+), joint swelling (The left knee is swollen but may be a bit better.) - *Routine Neurological Exam Present: alert, oriented X3 - Routine Psychiatric Exam Present: normal affect, anxious (He seems less anxious.) Assessment and Plan (1) Leukocytosis Current visit: Yes Status: Acute Qualifiers: Leukocytosis type: unspecified Qualified Code(s): D72.829 - Elevated white blood cell count, unspecified Category: Medical Code(s): D72.829 - Elevated white blood cell count, unspecified (2) Hyponatremia Current visit: Yes Status: Acute Category: Medical Code(s): E87.1 - Hypo- osmolality and hyponatremia (3) Debility Current visit: No Status: Acute Category: Medical Code(s): R53.81 - Other malaise (4) Elevated troponin Current visit: Yes Status: Acute Category: Medical Code(s): R74.8 - Abnormal levels of other serum enzymes (5) Dislocation of shoulder, anterior, right, closed Current visit: No Status: Acute Qualifiers: Encounter type: initial encounter Qualified Code(s): S43.014A - Anterior dislocation of right humerus, initial encounter Category: Medical Code(s): S43.014A - Anterior dislocation of right humerus, initial encounter (6) Dyspnea Current visit: Yes Status: Acute Qualifiers: Dyspnea type: dyspnea on exertion Qualified Code(s): R06.09 - Other forms of dyspnea Category: Medical Code(s): R06.00 - Dyspnea, unspecified (7) Diabetes mellitus Current visit: No Status: Chronic Category: Medical Code(s): E11.9 - Type 2 diabetes mellitus without complications (8) Elevated d-dimer Current visit: Yes Status: Acute Category: Medical Code(s): R79.89 - Other specified abnormal findings of blood chemistry (9) Normal pressure hydrocephalus Current visit: No Status: Chronic Category: Medical Code(s): G91.2 - (Idiopathic) normal pressure hydrocephalus (10) Ventriculo-peritoneal shunt status Current visit: No Status: Chronic Category: Surgical Code(s): Z98.2 - Presence of cerebrospinal fluid drainage device (11) Hyperkalemia Current visit: Yes Status: Acute Category: Medical Code(s): E87.5 - Hyperkalemia (12) Obesity, Class III, BMI 40-49.9 (morbid obesity) Current visit: No Status: Chronic Category: Medical Code(s): E66.01 - Morbid (severe) obesity due to excess calories (13) Anxiety disorder Current visit: No Status: Chronic Category: Medical Code(s): F41.9 - Anxiety disorder, unspecified (14) Hypothyroidism Current visit: No Status: Chronic Category: Medical Code(s): E03.9 - Hyp othyroidism, unspecified (15) Constipation Current visit: Yes Status: Acute Category: Medical Code(s): K59.00 - Constipation, unspecified (16) Left knee pain Current visit: Yes Status: Acute Category: Medical Code(s): M25.562 - Pain in left knee (17) Sepsis Current visit: Yes Status: Acute Category: Medical Code(s): A41.9 - Sepsis, unspecified organism (18) Hemarthrosis Current visit: Yes Status: Acute Category: Medical Code(s): M25.00 - Hemarthrosis, unspecified joint - Assessment and plan all Dx Assessment and Plan for all problems:: Present regimen will be continued. The plan is to transfer him to a nursing facility on Friday if possible. He does still remain on a list for transfer to but this seems unlikely to happen.
[2019-01-09 14:43] LABS: Lymphocytes % 5 % (10-50); Monocytes % 10 % (2-9); Neutrophils % 85 % (42-76); Total Cells Counted 100
[2019-01-09 14:44] LABS: RBC Morphology Normal
[2019-01-10 06:54] LABS: Basophils % 0.2 % (0.1-2.0); Eosinophils # 0.1 K/mm3 (0.0-0.4); Eosinophils % 0.5 % (0.1-12.0); Hemoglobin 9.4 g/dL (14.1-18.0); Lymphocytes % 12.9 % (10-50); Mean Corpuscular HGB Conc 31.8 g/dL (31.8-35.4); Mean Corpuscular Volume 92.3 fl (80-94); Mean Platelet Volume 6.3 fl (7.4-10.4); Monocytes # 1.5 K/mm3 (0.1-1.0); Monocytes % 9.8 % (1.7-9.3); Neutrophils % 76.8 % (37.0-80.0); Platelet Count 466 K/mm3 (142-424); White Blood Count 15.6 K/mm3 (4.8-10.8)
[2019-01-10 07:01] LABS: Hematocrit 29.6 % (42.0-52.0)
[2019-01-10 07:13] LABS: Anion Gap 8.2 mEq/L (5-15); Calcium 8.3 mg/dL (8.5-10.1); Lymphocytes % 38 % (10-50); Monocytes % 7 % (2-9); Neutrophils % 49 % (42-76); Nucleated Red Blood Cells 2; Total Cells Counted 100
[2019-01-10 07:14] LABS: Hypochromasia 1+; Rouleaux 1+
--- NOTE | 2019-01-10 10:30 | Progress Note ---
Internal Medicine - PN: Subj *Date: 01/10/19 *Time: 10:28 Interval history: He states that he slept well last night. He expresses appreciation for being in the hospital. Arrangements have been made for him to go [place] [facility]. He will receive rehab there as well. His white blood cell count is slowly coming down. See labs. Exam Vital signs and Labs for Last 24 Hours: Temp Pulse Resp BP Pulse Ox 98.0 F 88 20 132/72 95 01/10/19 08:00 01/10/19 10:18 01/10/19 08:00 01/10/19 08:00 01/10/19 08:01 Laboratory Results - last 24 hr 01/09/19 09:33: Total Counted 100, Neutrophils % (Manual) 85 H, Lymphocytes % (Manual) 5 L, Monocytes % (Manual) 10 H, Platelet Estimate Slight increase, RBC Morphology Normal 01/09/19 11:09: POC Glucose 241 H 01/09/19 16:41: POC Glucose 302 H* 01/09/19 20:06: POC Glucose 298 H 01/10/19 06:08: POC Glucose 200 H 01/10/19 06:30: WBC 15.6 H, RBC 3.20 L, Hgb 9.4 L, Hct 29.6 L, MCV 92.3, MCH 29.4, MCHC 31.8, RDW 14.0, Plt Count 466 H, MPV 6.3 L, Neut % (Auto) 76.8, Lymph % (Auto) 12.9, [place] % (Auto) 9.8 H, Eos % (Auto) 0.5, Baso % (Auto) 0.2, Neut # (Auto) 12.0 H, Lymph # (Auto) 2.0, [place] # (Auto) 1.5 H, Eos # (Auto) 0.1, Baso # (Auto) 0.0, Total Counted 100, Neutrophils % (Manual) 49, Band Neutrophils % 6.0, Lymphocytes % (Manual) 38, Monocytes % (Manual) 7, Nucleated RBCs 2, Platelet Estimate Slight increase, Hypochromasia 1+, [place] 1+ 01/10/19 06:30: Sodium 127 L, Potassium 4.2, Chloride 88 L, Carbon Dioxide 35 H, Anion Gap 8.2, BUN 18, Creatinine 0.82, Estimated Creat Clear 82, Estimated GFR 95, Est GFR ( Amer) 114, Glucose 186 H, Calcium 8.3 L I & O for Last 24 hours: Intake & Output 01/07/19 01/08/19 01/09/19 01/10/19 11:59 11:59 11:59 11:59 Intake Total 2999 / 2999 4184 / 4184 2744 / 2744 4817 / 4817 Output Total 4900 / 4900 2600 / 2600 3700 / 3700 3400 / 3400 Balance -1901 / -1901 1584 / 1584 -956 / -956 1417 / 1417 Weight 350 lb 3 oz 350 lb 351 lb 10.197 oz 353 lb 13.471 oz Microbiology Reports for the Last 24 Hours: Microbiology 01/04/19 12:40 Synovial Fluid - Aspirate Gram Stain - Final 01/04/19 12:40 Synovial Fluid - Aspirate Body Fluid Culture - Final NO GROWTH AFTER 5 DAYS - Constitutional no acute distress - *Routine HEENT Exam Head: Present: normocephalic Eye: Present: PERRL ENT: Present: mucous membranes moist - Routine Chest/Breast/Axilla Exam Chest wall: Absent: tenderness (PICC line left subclavian area.) - *Routine Respiratory Exam Present: CTA bilaterally. Absent: respiratory distress - *Routine Cardiovascular Exam Present: RRR - *Routine Abdominal Exam Present: soft (Obese). Absent: tenderness - *Routine Extremities Exam Comments: [place] wraps in place. - *Routine Neurological Exam Present: alert, oriented X3. Absent: altered mental status Assessment and Plan (1) Leukocytosis Current visit: Yes Status: Acute Qualifiers: Leukocytosis type: unspecified Qualified Code(s): D72.829 - Elevated white blood cell count, unspecified Category: Medical Code(s): D72.829 - Elevated white blood cell count, unspecified (2) Hyponatremia Current visit: Yes Status: Acute Category: Medical Code(s): E87.1 - Hypo- osmolality and hyponatremia (3) Debility Current visit: No Status: Acute Category: Medical Code(s): R53.81 - Other malaise (4) Elevated troponin Current visit: Yes Status: Acute Category: Medical Code(s): R74.8 - Abnor mal levels of other serum enzymes (5) Dislocation of shoulder, anterior, right, closed Current visit: No Status: Acute Qualifiers: Encounter type: initial encounter Qualified Code(s): S43.014A - Anterior dislocation of right humerus, initial encounter Category: Medical Code(s): S43.014A - Anterior dislocation of right humerus, initial encounter (6) Dyspnea Current visit: Yes Status: Acute Qualifiers: Dyspnea type: dyspnea on exertion Qualified Code(s): R06.09 - Other forms of dyspnea Category: Medical Code(s): R06.00 - Dyspnea, unspecified (7) Diabetes mellitus Current visit: No Status: Chronic Category: Medical Code(s): E11.9 - Type 2 diabetes mellitus without complications (8) Elevated d-dimer Current visit: Yes Status: Acute Category: Medical Code(s): R79.89 - Other specified abnormal findings of blood chemistry (9) Normal pressure hydrocephalus Current visit: No Status: Chronic Category: Medical Code(s): G91.2 - (Idiopathic) normal pressure hydrocephalus (10) Ventriculo-peritoneal shunt status Current visit: No Status: Chronic Category: Surgical Code(s): Z98.2 - Presence of cerebrospinal fluid drainage device (11) Hyperkalemia Current visit: Yes Status: Acute Category: Medical Code(s): E87.5 - Hy perkalemia (12) Obesity, Class III, BMI 40-49.9 (morbid obesity) Current visit: No Status: Chronic Category: Medical Code(s): E66.01 - Morbid (severe) obesity due to excess calories (13) Anxiety disorder Current visit: No Status: Chronic Category: Medical Code(s): F41.9 - Anxiety disorder, unspecified (14) Hypothyroidism Current visit: No Status: Chronic Category: Medical Code(s): E03.9 - Hypothyroidism, unspecified (15) Constipation Current visit: Yes Status: Acute Category: Medical Code(s): K59.00 - C onstipation, unspecified (16) Left knee pain Current visit: Yes Status: Acute Category: Medical Code(s): M25.562 - Pain in left knee (17) Sepsis Current visit: Yes Status: Acute Category: Medical Code(s): A41.9 - Sepsis, unspecified organism (18) Hemarthrosis Current visit: Yes Status: Acute Category: Medical Code(s): M25.00 - Hemarthrosis, unspecified joint - Assessment and plan all Dx Assessment and Plan for all problems:: Continue present regimen. Plan discharge to nursing facility Friday.
--- NOTE | 2019-01-10 14:27 | Pharmacy Consult Notes ---
- Pharmacy Consult Date: 01/10/19 Time: 14:26 Referring provider: DR. SANCHEZ Reason for Consult:: VANCOMYCIN TROUGH LEVEL Allergies and ADEs:: Allergies Allergy/AdvReac Type Severity Reaction Status Date / Time No Known Drug Allergies Allergy Unknown Verified 12/26/18 12:39 Home Medications:: Home Medications Medication Instructions Recorded Confirmed Type divalproex 500 mg tablet,delayed 1,000 mg PO HS #180 tab 12/15/18 12/31/18 History release exenatide ER 2 mg/0.65 mL 2 mg SQ WEEKLY #4 each 12/15/18 12/31/18 History subcutaneous pen injector ezetimibe 10 mg tablet 10 mg PO 1200 #90 tab 12/15/18 01/01/19 History glimepiride 4 mg tablet 4 mg PO DAILY #90 tab 12/15/18 12/31/18 History insulin glargine (U-100) 100 55 units SQ HS #10 ml 12/15/18 01/06/19 History unit/mL subcutaneous solution levothyroxine 100 mcg tablet 100 mcg PO DAILY #30 tab 12/15/18 12/31/18 History meclizine 25 mg tablet 25 mg PO TID #90 tab 12/15/18 12/31/18 History niacin ER 500 mg tablet,extended 500 mg PO HS #90 tab 12/15/18 12/31/18 History release 24 hr olanzapine 5 mg tablet 5 mg PO HS #90 tab 12/15/18 01/01/19 History oxybutynin chloride 5 mg tablet 5 mg PO 0900,1700 #180 tab 12/15/18 01/01/19 History pioglitazone 15 mg tablet 15 mg PO DAILY #60 tab 12/15/18 12/31/18 History potassium chloride ER 20 mEq 20 meq PO DAILY #90 tab 12/15/18 12/31/18 History tablet,extended release(part/cryst) spironolactone 25 mg tablet 25 mg PO 1700 #90 tab 12/15/18 01/01/19 History Ascorbic Acid/Ascorbate Sodium 500 mg PO DAILY 12/26/18 12/31/18 History [Vitamin C 250 mg Tablet Chew] Aspirin [Aspirin 325mg Tab] 325 mg PO HS 12/26/18 01/01/19 History Cholecalciferol (Vitamin D3) 1,000 unit PO DAILY 12/26/18 12/31/18 History [Vitamin D3 1,000 Unit Cap] Cyanocobalamin (Vitamin B-12) 2,500 mcg SL DAILY 12/26/18 12/31/18 History [B-12] Furosemide [Furosemide 40MG tAB] 40 mg PO 0900,1200 12/26/18 01/01/19 History Hydrocodone/Acetaminophen [Lortab 1 tab PO TIDP PRN #90 tab 12/30/18 12/31/18 Rx 7.5/325mg tablet] Height: 1.83 m Weight: 160.5 kg Laboratory Results:: Laboratory Results - last 24 hr 01/09/19 09:33: Total Counted 100, Neutrophils % (Manual) 85 H, Lymphocytes % (Manual) 5 L, Monocytes % (Manual) 10 H, Platelet Estimate Slight increase, RBC Morphology Normal 01/09/19 11:09: POC Glucose 241 H 01/09/19 16:41: POC Glucose 302 H* 01/09/19 20:06: POC Glucose 298 H 01/10/19 06:08: POC Glucose 200 H 01/10/19 06:30: WBC 15.6 H, RBC 3.20 L, Hgb 9.4 L, Hct 29.6 L, MCV 92.3, MCH 29.4, MCHC 31.8, RDW 14.0, Plt Count 466 H, MPV 6.3 L, Neut % (Auto) 76.8, Lymph % (Auto) 12.9, [place] % (Auto) 9.8 H, Eos % (Auto) 0.5, Baso % (Auto) 0.2, Neut # (Auto) 12.0 H, Lymph # (Auto) 2.0, [place] # (Auto) 1.5 H, Eos # (Auto) 0.1, Baso # (Auto) 0.0, Total Counted 100, Neutrophils % (Manual) 49, Band Neutrophils % 6.0, Lymphocytes % (Manual) 38, Monocytes % (Manual) 7, Nucleated RBCs 2, Platelet Estimate Slight increase, Hypochromasia 1+, Rouleaux 1+ 01/10/19 06:30: Sodium 127 L, Potassium 4.2, Chloride 88 L, Carbon Dioxide 35 H, Anion Gap 8.2, BUN 18, Creatinine 0.82, Estimated Creat Clear 82, Estimated GFR 95, Est GFR ( Amer) 114, Glucose 186 H, Calcium 8.3 L 01/10/19 10:15: Vancomycin Trough 14.3 Medical History: Reports:: Diabetes Mellitus Type 2, Hyperlipidemia, Hypertension Denies:: Cancer Assessment and Plan (1) Leukocytosis Current visit: Yes Status: Acute Qualifiers: Leukocytosis type: unspecified Qualified Code(s): D72.829 - Elevated white blood cell count, unspecified Category: Medical Code(s): D72.829 - Elevated white blood cell count, unspecified (2) Hyponatremia Current visit: Yes Status: Acute Category: Medical Code(s): E87.1 - Hypo-osmolality and hyponatremia (3) Debility Current visit: No Status: Acute Category: Medical Code(s): R53.81 - Other malaise (4) Elevated troponin Current visit: Yes Status: Acute Category: Medical Code(s): R74.8 - Abnormal levels of other serum enzymes (5) Dislocation of shoulder, anterior, right, closed Current visit: No Status: Acute Qualifiers: Encounter type: initial encounter Qualified Code(s): S43.014A - Anterior dislocation of right humerus, initial encounter Category: Medical Code(s): S43.014A - Anterior dislocation of right humerus, initial encounter (6) Dyspnea Current visit: Yes Status: Acute Qualifiers: Dyspnea type: dyspnea on exertion Qualified Code(s): R06.09 - Other forms of dyspnea Category: Medical Code(s): R06.00 - Dyspnea, unspecified (7) Diabetes mellitus Current visit: No Status: Chronic Category: Medical Code(s): E11.9 - Type 2 diabetes mellitus without complications (8) Elevated d-dimer Current visit: Yes Status: Acute Category: Medical Code(s): R79.89 - Other specified abnormal findings of blood chemistry (9) Normal pressure hydrocephalus Current visit: No Status: Chronic Category: Medical Code(s): G91.2 - (Idiopathic) normal pressure hydrocephalus (10) Ventriculo-peritoneal shunt status Current visit: No Status: Chronic Category: Surgical Code(s): Z98.2 - Pres ence of cerebrospinal fluid drainage device (11) Hyperkalemia Current visit: Yes Status: Acute Category: Medical Code(s): E87.5 - Hyperkalemia (12) Obesity, Class III, BMI 40-49.9 (morbid obesity) Current visit: No Status: Chronic Category: Medical Code(s): E66.01 - Morbid (severe) obesity due to excess calories (13) Anxiety disorder Current visit: No Status: Chronic Category: Medical Code(s): F41.9 - Anxiety disorder, unspecified (14) Hypothyroidism Current visit: No Status: Chronic Category: Medical Code(s): E03.9 - Hypothyroidism, unspecified (15) Constipation Current visit: Yes Status: Acute Category: Medical Code(s): K59.00 - Constipation, unspecified (16) Left knee pain Current visit: Yes Status: Acute Category: Medical Code(s): M25.562 - Pain in left knee (17) Sepsis Current visit: Yes Status: Acute Category: Medical Code(s): A41.9 - Sepsis, unspecified organism (18) Hemarthrosis Current visit: Yes Status: Acute Category: Medical Code(s): M25.00 - Hemarthrosis, unspecified joint - Assessment and plan all Dx Assessment and Plan for all problems:: BASED ON PATIENT FACTORS AND VANCOMYCIN TROUGH LEVEL OF 14.3, RECOMMEND CONTINUING CURRENT DOSE OF 2,750MG EVERY 18 HOURS. PHARMACY WILL CONTINUE TO MONITOR AND ADJUST DOSE APPROPRIATE. -STEPHANIA DAO, DENID
[2019-01-10 16:05] LABS: Anion Gap 10.8 mEq/L (5-15); Calcium 8.6 mg/dL (8.5-10.1)
[2019-01-11 07:30] LABS: Basophils % 0.2 % (0.1-2.0); Eosinophils # 0.1 K/mm3 (0.0-0.4); Eosinophils % 0.6 % (0.1-12.0); Hematocrit 29.5 % (42.0-52.0); Hemoglobin 9.3 g/dL (14.1-18.0); Lymphocytes # 2.6 K/mm3 (0.7-4.5); Mean Corpuscular HGB Conc 31.4 g/dL (31.8-35.4); Mean Corpuscular Volume 91.6 fl (80-94); Mean Platelet Volume 6.3 fl (7.4-10.4); Monocytes # 1.6 K/mm3 (0.1-1.0); Monocytes % 9.2 % (1.7-9.3); Neutrophils # 12.7 K/mm3 (1.8-7.8); Neutrophils % 74.9 % (37.0-80.0); Platelet Count 478 K/mm3 (142-424); Red Blood Count 3.22 M/mm3 (4.60-6.20); Red Cell Distribution Width 14.2 % (11.5-17.5)
[2019-01-11 07:52] LABS: Anion Gap 7.9 mEq/L (5-15); Calcium 8.4 mg/dL (8.5-10.1)
--- NOTE | 2019-01-11 09:19 | Progress Note ---
Internal Medicine - PN: Subj *Date: 01/11/19 *Time: 09:15 Interval history: He states that he feels very well. His is at his bedside. The plan is to transfer him the morning to [facility]. His weight is up and I will give some Lasix IV today. His oral potassium dose needs to be increased dramatically to improve both potassium and the sodium. His white count is at 17,000 today area Exam Vital signs and Labs for Last 24 Hours: Temp Pulse Resp BP Pulse Ox 97.6 F 90 21 119/50 L 92 L 01/11/19 08:00 01/11/19 08:00 01/11/19 08:00 01/11/19 08:00 01/11/19 08:00 Laboratory Results - last 24 hr 01/10/19 10:15: Vancomycin Trough 14.3 01/10/19 11:10: POC Glucose 234 H 01/10/19 15:06: Sodium 125 L, Potassium 4.8, Chloride 89 L, Carbon Dioxide 30, Anion Gap 10.8, BUN 18, Creatinine 0.84, Estimated Creat Clear 82, Estimated GFR 92, Est GFR ( Amer) 111, Glucose 223 H, Calcium 8.6 01/10/19 16:31: POC Glucose 245 H 01/10/19 20:59: POC Glucose 276 H 01/11/19 06:01: POC Glucose 117 H 01/11/19 07:00: WBC 17.0 H, RBC 3.22 L, Hgb 9.3 L, Hct 29.5 L, MCV 91.6, MCH 28.8, MCHC 31.4 L, RDW 14.2, Plt Count 478 H, MPV 6.3 L, Neut % (Auto) 74.9, Lymph % (Auto) 15.0, [place] % (Auto) 9.2, Eos % (Auto) 0.6, Baso % (Auto) 0.2, Neut # (Auto) 12.7 H, Lymph # (Auto) 2.6, [place] # (Auto) 1.6 H, Eos # (Auto) 0.1, Baso # (Auto) 0.0 01/11/19 07:00: Sodium 123 L, Potassium 3.9, Chloride 85 L, Carbon Dioxide 34 H, Anion Gap 7.9, BUN 15, Creatinine 0.81, Estimated Creat Clear 0, Estimated GFR 96, Est GFR ( Amer) 116, Glucose 117 H D, Calcium 8.4 L I & O for Last 24 hours: Intake & Output 01/08/19 01/09/19 01/10/19 01/11/19 11:59 11:59 11:59 11:59 Intake Total 4184 / 4184 2744 / 2744 4917 / 4917 3835 / 3835 Output Total 2600 / 2600 3700 / 3700 3400 / 4900 3200 / 3200 Balance 1584 / 1584 -956 / -956 1517 / 17 635 / 635 Weight 350 lb 351 lb 10.197 oz 362 lb 10.566 oz 5.848 oz - Constitutional no acute distress - *Routine HEENT Exam Eye: Present: PERRL ENT: Present: mucous membranes moist - *Routine Respiratory Exam Present: CTA bilaterally. Absent: respiratory distress - *Routine Cardiovascular Exam Present: RRR - *Routine Abdominal Exam Present: soft (Obese) - *Routine Extremities Exam Present: edema ([place] wraps on legs.) Comments: He is quite tender at the right AC joint of his shoulder. - Routine Psychiatric Exam Present: normal affect (Mood is much improved), normal thought process Assessment and Plan (1) Leukocytosis Current visit: Yes Status: Acute Qualifiers: Leukocytosis type: unspecified Qualified Code(s): D72.829 - Elevated white blood cell count, unspecified Category: Medical Code(s): D72.829 - Elevated white blood cell count, unspecified (2) Hyponatremia Current visit: Yes Status: Acute Category: Medical Code(s): E87.1 - Hypo- osmolality and hyponatremia (3) Debility Current visit: No Status: Acute Category: Medical Code(s): R53.81 - Other malaise (4) Elevated troponin Current visit: Yes Status: Acute Category: Medical Code(s): R74.8 - Abnormal levels of other serum enzymes (5) Dislocation of shoulder, anterior, right, closed Current visit: No Status: Acute Qualifiers: Encounter type: initial encounter Qualified Code(s): S43.014A - Anterior dislocation of right humerus, initial encounter Category: Medical Code(s): S43.014A - Anterior dislocation of right humerus, initial encounter (6) Dyspnea Current visit: Yes Status: Acute Qualifiers: Dyspnea type: dyspnea on exertion Qualified Code(s): R06.09 - Other forms of dyspnea Category: Medical Code(s): R06.00 - Dyspnea, unspecified (7) Diabetes mellitus Current visit: No Status: Chronic Category: Medical Code(s): E11.9 - Type 2 diabetes mellitus without complications (8) Elevated d-dimer Current visit: Yes Status: Acute Category: Medical Code(s): R79.89 - Other specified abnormal findings of blood chemistry (9) Normal pressure hydrocephalus Current visit: No Status: Chronic Category: Medical Code(s): G91.2 - (Idiopathic) normal pressure hydrocephalus (10) Ventriculo-peritoneal shunt status Current visit: No Status: Chronic Category: Surgical Code(s): Z98.2 - Presence of cerebrospinal fluid drainage device (11) Hyperkalemia Current visit: Yes Status: Acute Category: Medical Code(s): E87.5 - Hyperkalemia (12) Obesity, Class III, BMI 40-49.9 (morbid obesity) Current visit: No Status: Chronic Category: Medical Code(s): E66.01 - Morbid (severe) obesity due to excess calories (13) Anxiety disorder Current visit: No Status: Chronic Category: Medical Code(s): F41.9 - Anxiety disorder, unspecified (14) Hypothyroidism Current visit: No Status: Chronic Category: Medical Code(s): E03.9 - Hypothyroidism, unspecified (15) Constipation Current visit: Yes Status: Acute Category: Medical Code(s): K59.00 - Constipation, unspecified (16) Left knee pain Current visit: Yes Status: Acute Category: Medical Code(s): M25.562 - Pain in left knee (17) Sepsis Current visit: Yes Status: Acute Category: Medical Code(s): A41.9 - Sepsis, unspecified organism (18) Hemarthrosis Current visit: Yes Status: Acute Category: Medical Code(s): M25.00 - Hemarthrosis, unspecified joint - Assessment and plan all Dx Assessment and Plan for all problems:: Additional Lasix today. Additional potassium. Discharge is anticipated in the morning. [facility] contacted us yesterday and said a bed was available. But at this point I did not feel patient needed to be transferred.
[2019-01-11 10:00] LABS: Eosinophils % 1 % (0-3); Lymphocytes % 11 % (10-50); Monocytes % 3 % (2-9); Neutrophils % 79 % (42-76); RBC Morphology Normal; Total Cells Counted 100
[2019-01-12 07:08] LABS: Basophils # 0.1 K/mm3 (0-0.2); Basophils % 0.3 % (0.1-2.0); Eosinophils # 0.1 K/mm3 (0.0-0.4); Eosinophils % 0.6 % (0.1-12.0); Hematocrit 29.7 % (42.0-52.0); Hemoglobin 9.5 g/dL (14.1-18.0); Lymphocytes # 2.4 K/mm3 (0.7-4.5); Lymphocytes % 14.5 % (10-50); Mean Corpuscular Volume 90.7 fl (80-94); Monocytes # 1.5 K/mm3 (0.1-1.0); Monocytes % 9.1 % (1.7-9.3); Neutrophils # 12.5 K/mm3 (1.8-7.8); Neutrophils % 75.4 % (37.0-80.0); Platelet Count 484 K/mm3 (142-424); Red Blood Count 3.27 M/mm3 (4.60-6.20); Red Cell Distribution Width 14.4 % (11.5-17.5); White Blood Count 16.6 K/mm3 (4.8-10.8)
[2019-01-12 08:08] LABS: Anion Gap 5.9 mEq/L (5-15); Calcium 8.3 mg/dL (8.5-10.1)
--- NOTE | 2019-01-12 08:30 | Progress Note ---
Internal Medicine - PN: Subj *Date: 01/12/19 *Time: 08:37 Interval history: Patient states he is feeling great today. He had a good day yesterday. He states he is leaving for facility in [facility] today. He is anxious to go and continue with rehab. His right arm has minimal pain. He states he has better range of motion. Both knees do hurt at times. He states he has not been out of bed. Bowels are moving. He is eating well. He continues with a Rogers catheter to bedside drainage. He continues with a left upper chest deep line. He denies chest pain. He states he gets short of breath with movement. Exam Vital signs and Labs for Last 24 Hours: Temp Pulse Resp BP Pulse Ox 98.9 F 88 17 139/69 95 01/12/19 07:48 01/12/19 07:48 01/12/19 07:48 01/12/19 07:48 01/12/19 07:48 Laboratory Results - last 24 hr 01/11/19 07:00: Total Counted 100, Neutrophils % (Manual) 79 H, Band Neutrophils % 6.0, Lymphocytes % (Manual) 11, Monocytes % (Manual) 3, Eosinophils % (Manual) 1, Platelet Estimate Normal, RBC Morphology Normal 01/11/19 11:32: POC Glucose 131 H 01/11/19 16:30: POC Glucose 200 H 01/11/19 20:43: POC Glucose 188 H 01/12/19 05:46: POC Glucose 77 01/12/19 06:47: WBC 16.6 H, RBC 3.27 L, Hgb 9.5 L, Hct 29.7 L, MCV 90.7, MCH 2 9.1, MCHC 32.0, RDW 14.4, Plt Count 484 H, MPV 6.0 L, Neut % (Auto) 75.4, Lymph % (Auto) 14.5, [place] % (Auto) 9.1, Eos % (Auto) 0.6, Baso % (Auto) 0.3, Neut # (Auto) 12.5 H, Lymph # (Auto) 2.4, [place] # (Auto) 1.5 H, Eos # (Auto) 0.1, Baso # (Auto) 0.1 I & O for Last 24 hours: Intake & Output 01/09/19 01/10/19 01/11/19 01/12/19 11:59 11:59 11:59 11:59 Intake Total 2744 / 2744 4917 / 4917 3935 / 3935 3444 / 3444 Output Total 3700 / 3700 3400 / 4900 4900 / 4900 4525 / 4525 Balance -956 / -956 1517 / 17 -965 / -965 -1081 / -1081 Weight 351 lb 10.197 oz 362 lb 10.566 oz 369 lb 7.916 oz 364 lb 6.786 oz - Constitutional no acute distress - *Routine Respiratory Exam Present: CTA bilaterally (Anteriorly) - *Routine Cardiovascular Exam Present: RRR - *Routine Abdominal Exam Present: soft (Obese), normoactive bowel sounds. Absent: tenderness - *Routine Extremities Exam Present: edema (Bilateral lower leg) Comments: Left knee with gradual decrease in swelling and discoloration. Better range of motion of the right arm and shoulder. He is able to exercise lower extremities to a small degree. - *Routine Skin Exam Comments: Multiple ecchymotic spots on arms. - *Routine Neurological Exam Present: alert, oriented X3 Conversant and speech is clear. Assessment and Plan (1) Leukocytosis Current visit: Yes Status: Acute Qualifiers: Leukocytosis type: unspecified Qualified Code(s): D72.829 - Elevated white blood cell count, unspecified Category: Medical Code(s): D72.829 - Elevated white blood cell count, unspecified (2) Hyponatremia Current visit: Yes Status: Acute Category: Medical Code(s): E87.1 - Hypo- osmolality and hyponatremia (3) Debility Current visit: No Status: Acute Category: Medical Code(s): R53.81 - Other malaise (4) Elevated troponin Current visit: Yes Status: Acute Category: Medical Code(s): R74.8 - Abnormal levels of other serum enzymes (5) Dislocation of shoulder, anterior, right, closed Current visit: No Status: Acute Qualifiers: Encounter type: initial encounter Qualified Code(s): S43.014A - Anterior dislocation of right humerus, initial encounter Category: Medical Code(s): S43.014A - Anterior dislocation of right humerus, initial encounter (6) Dyspnea Current visit: Yes Status: Acute Qualifiers: Dyspnea type: dyspnea on exertion Qualified Code(s): R06.09 - Other forms of dyspnea Category: Medical Code(s): R06.00 - Dyspnea, unspecified (7) Diabetes mellitus Current visit: No Status: Chronic Category: Medical Code(s): E11.9 - Type 2 diabetes mellitus without complications (8) Elevated d-dimer Current visit: Yes Status: Acute Category: Medical Code(s): R79.89 - Other specified abnormal findings of blood chemistry (9) Normal pressure hydrocephalus Current visit: No Status: Chronic Category: Medical Code(s): G91.2 - (Idiopathic) normal pressure hydrocephalus (10) Ventriculo-peritoneal shunt status Current visit: No Status: Chronic Category: Surgical Code(s): Z98.2 - Presence of cerebrospinal fluid drainage device (11) Hyperkalemia Current visit: Yes Status: Acute Category: Medical Code(s): E87.5 - Hyperkalemia (12) Obesity, Class III, BMI 40-49.9 (morbid obesity) Current visit: No Status: Chronic Category: Medical Code(s): E66.01 - Morbid (severe) obesity due to excess calories (13) Anxiety disorder Current visit: No Status: Chronic Category: Medical Code(s): F41.9 - Anxiety disorder, unspecified (14) Hypothyroidism Current visit: No Status: Chronic Category: Medical Code(s): E03.9 - Hypothyroidism, unspecified (15) Constipation Current visit: Yes Status: Acute Category: Medical Code(s): K59.00 - Constipation, unspecified (16) Left knee pain Current visit: Yes Status: Acute Category: Medical Code(s): M25.562 - Pain in left knee (17) Sepsis Current visit: Yes Status: Acute Category: Medical Code(s): A41.9 - Sepsis, unspecified organism (18) Hemarthrosis Current visit: Yes Status: Acute Category: Medical Code(s): M25.00 - Hemarthrosis, unspecified joint - Assessment and plan all Dx Assessment and Plan for all problems:: Care management checking on bed availability at rehab facility for transfer today. Patient is ready for discharged to facility for ongoing rehab. White blood cell count has decreased. We will continue with current antibiotics for now.
[2019-01-12 12:36] LABS: Eosinophils % 1 % (0-3); Lymphocytes % 17 % (10-50); Monocytes % 4 % (2-9); Neutrophils % 78 % (42-76); Total Cells Counted 100
[2019-01-12 12:37] LABS: RBC Morphology Normal
--- NOTE | 2019-01-12 13:02 | Discharge Summary ---
General - General Admission date:: 12/31/18 Discharge date: 01/12/19 HPI HPI: Mr. Davis is a 63-year-old male who was just discharged from [facility] after an admission for shoulder dislocation. He was discharged to [facility] for rehab and his son states when they walked in the facility they could not leave him there. So they left. They ended up taking him home and he was able to move about his house with a walker and some assistance up until last night when he began getting very weak. He was unable to walk and was therefore brought back to the emergency room for evaluation. While in the ER his white blood cell count was found to be elevated. His family states he had an episode in the ER where his oxygen dropped and he turned blue. They were worried he was having a seizure. He had a head CT and a chest x-ray showing nothing acute. He had a knee x-ray showing mild osteoarthritis and a shoulder x-ray showing severe subacromial stenosis with mild osteoarthritis. His white blood cell count was 25,000 and his d-dimer was elevated at 616. His sodium was low at 118 and his potassium was elevated at 5.2. His troponin was mildly elevated as well. His valproic acid level was low. He was admitted for further evaluation and treatment. Hospital Course Hospital Course: On admission patient was started on IV fluids and Rocephin. He had a questionable seizure activity with a low sodium of 118. Also troponin I was elevated as well as a D-dimer. His bilateral lower extremity venous Doppler studies were negative. CTA of the chest was negative. IV access was difficult and a deep line was placed in the left subclavian. Echocardiogram showed no valvular heart disease with a good ejection fraction and no evidence of valvular vegetation noted . Troponin I's remain elevated and a cardiology consult was initiated. EKG showed sinus rhythm with poor R wave progression. Cardiology noted that since the patient was stable with no plans for further testing that after the infectious status had cleared to consider possible stress test or cardiac cath. During hospitalization patient developed left knee edema/ecchymosis. X-ray was negative. Prophylactic Lovenox was discontinued. Patient was seen by Dr. Lau orthopedic surgeon, and aspiration of fluid was done. Fluid indicated positive for hemarthrosis and she recommendation ice, elevation, and range of motion as tolerated as well as physical therapy. Cultures from the fluid remain negative. Patient was clinically stable. Sodium gradually did improve but remained low. White count did improve but remained elevated. See labs Dr. Corona discussed patient with for possible transfer but no bed was available. He also conferred with infectious disease who recommended broad spectrum antibiotics. Cefepime and Flagyl were added to vancomycin. Patient did have a positive blood culture with Staphylococcus capitis but no other infectious source. Patient had difficulty with movement of all his limbs due to previous right shoulder injury and left knee effusion. Physical therapy did work with him as far as bed exercises but patient was not able to get out of the bed. He was eventually able to feed himself with his right hand with minimal discomfort of the right shoulder. Patient continued with a Rogers catheter throughout his stay. Constipation was resolved with MiraLAX. He periodically was short of breath. Chest x-ray showed nothing acute. He was started on duo nebs and was using an incentive spirometer. He had a periodic cough as well. He did deny chest pain.He did have an attempted lumbar puncture 01/08/[address] Espinoza which was unsuccessful. Care management was consulted on admission for disposition planning. Patient did have a weight gain and received a dose of Lasix. He had JEAN-CLAUDE wraps on bilateral lower extremities. On 01/12/2019 patient remained clinically stable. A bed was obtained at [facility] in [facility]. On this date patient was transferred in stable and satisfactory condition. Patient was scheduled for neurology follow-up for his ventricularlo peritoneal shunt with Dr. Calderón on 01/14/2019 at 11:30 AM. Patient is to be on meds as per medication sheet. He is to remain on a diabetic diet. He is to work with OT and PT. He is to be up out of bed as much as possible. Follow-up will be by physician in the above facility. Objective Vital signs: Temp Pulse Resp BP Pulse Ox 98.8 F 79 18 125/72 94 L 01/12/19 11:35 01/12/19 11:35 01/12/19 11:35 01/12/19 11:35 01/12/19 11:35 Narrative: Exam Vital signs and Labs for Last 24 Hours: Temp Pulse Resp BP Pulse Ox 98.9 F 88 17 139/69 95 01/12/19 07:48 01/12/19 07:48 01/12/19 07:48 01/12/19 07:48 01/12/19 07:48 Laboratory Results - last 24 hr 01/11/19 07:00: Total Counted 100, Neutrophils % (Manual) 79 H, Band Neutrophils % 6.0, Lymphocytes % (Manual) 11, Monocytes % (Manual) 3, Eosinophils % (Manual) 1, Platelet Estimate Normal, RBC Morphology Normal 01/11/19 11:32: POC Glucose 131 H 01/11/19 16:30: POC Glucose 200 H 01/11/19 20:43: POC Glucose 188 H 01/12/19 05:46: POC Glucose 77 01/12/19 06:47: WBC 16.6 H, RBC 3.27 L, Hgb 9.5 L, Hct 29.7 L, MCV 90.7, MCH 29.1, MCHC 32.0, RDW 14.4, Plt Count 484 H, MPV 6.0 L, Neut % (Auto) 75.4, Lymph % (Auto) 14.5, [place] % (Auto) 9.1, Eos % (Auto) 0.6, Baso % (Auto) 0.3, Neut # (Auto) 12.5 H, Lymph # (Auto) 2.4, [place] # (Auto) 1.5 H, Eos # (Auto) 0.1, Baso # (Auto) 0.1 I & O for Last 24 hours: Intake & Output 01/09/19 01/10/19 01/11/19 01/12/19 11:59 11:59 11:59 11:59 Intake Total 2744 / 2744 4917 / 4917 3935 / 3935 3444 / 3444 Output Total 3700 / 3700 3400 / 4900 4900 / 4900 4525 / 4525 Balance -956 / -956 1517 / 17 -965 / -965 -1081 / -1081 Weight 351 lb 10.197 oz 362 lb 10.566 oz 369 lb 7.916 oz 364 lb 6.786 oz - Constitutional no acute distress - *Routine Respiratory Exam Present: CTA bilaterally (Anteriorly) - *Routine Cardiovascular Exam Present: RRR - *Routine Abdominal Exam Present: soft (Obese), normoactive bowel sounds. Absent: tenderness - *Routine Extremities Exam Present: edema (Bilateral lower leg) Comments: Left knee with gradual decrease in swelling and discoloration. Better range of motion of the right arm and shoulder. He is able to exercise lower extremities to a small degree. - *Routine Skin Exam Comments: Multiple ecchymotic spots on arms. - *Routine Neurological Exam Present: alert, oriented X3 Conversant and speech is clear. Results Completed studies during hospitalization [Text1]: 12/31/2018 x-ray of the right shoulder IMPRESSION: Severe subacromial stenosis with mild osteoarthritis 12/31/2018 chest x-ray IMPRESSION: No acute findings. 12/31/[address] IMPRESSION: No change with no acute finding. GAME TESTER shunt present with no change in the size of the ventricles which are mildly prominent compared to the previous exam 12/31/2018 left knee x-ray IMPRESSION: Mild osteoarthritis 01/01/2019 CTA of the chest IMPRESSION: No evidence of pulmonary embolus or aortic aneurysm or dissection Scattered atelectatic changes 01/01/2019 venous Doppler studies of bilateral lower extremities Findings No evidence of DVT or superficial thrombophlebitis in the veins scanned of the right lower extremity. No evidence of DVT or superficial thrombophlebitis in the veins scanned of the left lower extremity. Limited exam secondary to morbid obesity difficult to image bilateral lower extremities. 01/04/2019 repeat left knee x-ray IMPRESSION: Osteoarthritis with interval development of prominent soft tissue swelling anterior to the knee and prepatellar region 01/04/2019 repeat chest x-ray IMPRESSION: No change with no acute finding 01/08/2013 fluoroscopy guided lumbar puncture per Dr. Espinoza MPRESSION: Unsuccessful fluoroscopy guided LP Labs on day of discharge: Labs from last 24 hours 01/12/19 01/12/19 01/12/19 11:53 06:47 06:47 WBC 16.6 H RBC 3.27 L Hgb 9.5 L Hct 29.7 L MCV 90.7 MCH 29.1 MCHC 32.0 RDW 14.4 Plt Count 484 H MPV 6.0 L Neut % (Auto) 75.4 Lymph % (Auto) 14.5 [place] % (Auto) 9.1 Eos % (Auto) 0.6 Baso % (Auto) 0.3 Neut # (Auto) 12.5 H Lymph # (Auto) 2.4 [place] # (Auto) 1.5 H Eos # (Auto) 0.1 Baso # (Auto) 0.1 Total Counted 100 Neutrophils % (Manual) 78 H Lymphocytes % (Manual) 17 Monocytes % (Manual) 4 Eosinophils % (Manual) 1 Platelet Estimate Normal RBC Morphology Normal Sodium 121 L Potassium 3.9 Chloride 83 L Carbon Dioxide 36 H Anion Gap 5.9 BUN 13 Creatinine 0.76 Estimated Creat Clear 82 Estimated GFR 103 Est GFR ( Amer) 125 Glucose 98 POC Glucose 149 H Calcium 8.3 L 01/12/19 01/11/19 01/11/19 05:46 20:43 16:30 WBC RBC Hgb Hct MCV MCH MCHC RDW Plt Count MPV Neut % (Auto) Lymph % (Auto) [place] % (Auto) Eos % (Auto) Baso % (Auto) Neut # (Auto) Lymph # (Auto) [place] # (Auto) Eos # (Auto) Baso # (Auto) Total Counted Neutrophils % (Manual) Lymphocytes % (Manual) Monocytes % (Manual) Eosinophils % (Manual) Platelet Estimate RBC Morphology Sodium Potassium Chloride Carbon Dioxide Anion Gap BUN Creatinine Estimated Creat Clear Estimated GFR Est GFR ( Amer) Glucose POC Glucose 77 188 H 200 H Calcium DS: Diagnosis - Discharge Diagnosis (1) Leukocytosis Status: Acute (2) Hyponatremia Status: Acute (3) Debility Status: Acute (4) Elevated troponin Status: Acute (5) Dislocation of shoulder, anterior, right, closed Status: Acute (6) Dyspnea Status: Acute (7) Diabetes mellitus Status: Chronic (8) Elevated d-dimer Status: Acute (9) Normal pressure hydrocephalus Status: Chronic (10) Ventriculo-peritoneal shunt status Status: Chronic (11) Hyperkalemia Status: Acute (12) Obesity, Class III, BMI 40-49.9 (morbid obesity) Status: Chronic (13) Anxiety disorder Status: Chronic (14) Hypothyroidism Status: Chronic (15) Constipation Status: Acute (16) Left knee pain Status: Acute (17) Sepsis Status: Acute (18) Hemarthrosis Status: Acute Discharge Plan - Patient Discharge Instructions ACTIVITY: Continue current activity Patient Instructions: Lumbar Puncture, DI for Shortness of Breath, Central Line-Associated Bloodstream Infections, Surgical Site Infection, DI for Central Line Catheter, DI for Leukocytosis - Follow up Plan Disposition: er [facility] Home Medications: Home Medications Medication Instructions Recorded Confirmed Type divalproex 500 mg tablet,delayed 1,000 mg PO HS #180 tab 12/15/18 12/31/18 History release exenatide ER 2 mg/0.65 mL 2 mg SQ WEEKLY #4 each 12/15/18 12/31/18 History subcutaneous pen injector ezetimibe 10 mg tablet 10 mg PO 1200 #90 tab 12/15/18 01/01/19 History glimepiride 4 mg tablet 4 mg PO DAILY #90 tab 12/15/18 12/31/18 History insulin glargine (U-100) 100 55 units SQ HS #10 ml 12/15/18 01/06/19 History unit/mL subcutaneous solution levothyroxine 100 mcg tablet 100 mcg PO DAILY #30 tab 12/15/18 12/31/18 History niacin ER 500 mg tablet,extended 500 mg PO HS #90 tab 12/15/18 12/31/18 History release 24 hr olanzapine 5 mg tablet 5 mg PO HS #90 tab 12/15/18 01/01/19 History oxybutynin chloride 5 mg tablet 5 mg PO 0900,1700 #180 tab 12/15/18 01/01/19 History pioglitazone 15 mg tablet 15 mg PO DAILY #60 tab 12/15/18 12/31/18 History potassium chloride ER 20 mEq 20 meq PO DAILY #90 tab 12/15/18 12/31/18 History tablet,extended release(part/cryst) spironolactone 25 mg tablet 25 mg PO 1700 #90 tab 12/15/18 01/01/19 History Ascorbic Acid/Ascorbate Sodium 500 mg PO DAILY 12/26/18 12/31/18 History [Vitamin C 250 mg Tablet Chew] Aspirin [Aspirin 325mg Tab] 325 mg PO HS 12/26/18 01/01/19 History Cholecalciferol (Vitamin D3) 1,000 unit PO DAILY 12/26/18 12/31/18 History [Vitamin D3 1,000 Unit Cap] Cyanocobalamin (Vitamin B-12) 2,500 mcg SL DAILY 12/26/18 12/31/18 History [B-12] Furosemide [Furosemide 40MG tAB] 40 mg PO 0900,1200 12/26/18 01/01/19 History Cefdinir [Omnicef 300mg Capsule] 300 mg PO BID #14 cap 01/12/19 Rx Ferrous Sulfate [Ferrous Sulfate 325 mg PO BID #100 tab 01/12/19 Rx 325mg Tablet] Hydrocodone/Acetaminophen [Lortab 1 tab PO TIDP PRN #90 tab 01/12/19 Rx 7.5/325mg tablet] Pantoprazole Sodium [Protonix 40mg 40 mg PO DAILY #30 tablet. 01/12/19 Rx tablet] Polyethylene Glycol 3350 [Miralax 17 gm PO DAILYP PRN powd.pack 01/12/19 Rx 17gm Packet] metroNIDAZOLE [metroNIDAZOLE 500mg 500 mg PO TID #20 tab 01/12/19 Rx Tablet] Prescriptions/Medication Reconciliation: New Polyethylene Glycol 3350 [Miralax 17gm Packet] 17 gm PO DAILYP PRN powd.pack PRN Reason: Constipation metroNIDAZOLE [metroNIDAZOLE 500mg Tablet] 500 mg PO TID #20 tab Cefdinir [Omnicef 300mg Capsule] 300 mg PO BID #14 cap Pantoprazole Sodium [Protonix 40mg tablet] 40 mg PO DAILY #30 tablet. Ferrous Sulfate [Ferrous Sulfate 325mg Tablet] 325 mg PO BID #100 tab Continued spironolactone 25 mg tablet 25 mg PO 1700 #90 tab olanzapine 5 mg tablet 5 mg PO HS #90 tab potassium chloride ER 20 mEq tablet,extended release(part/cryst) 20 meq PO DAILY #90 tab pioglitazone 15 mg tablet 15 mg PO DAILY #60 tab levothyroxine 100 mcg tablet 100 mcg PO DAILY #30 tab insulin glargine (U-100) 100 unit/mL subcutaneous solution 55 units SQ HS #10 ml ezetimibe 10 mg tablet 10 mg PO 1200 #90 tab oxybutynin chloride 5 mg tablet 5 mg PO 0900,1700 #180 tab niacin ER 500 mg tablet,extended release 24 hr 500 mg PO HS #90 tab divalproex 500 mg tablet,delayed release 1,000 mg PO HS #180 tab glimepiride 4 mg tablet 4 mg PO DAILY #90 tab exenatide ER 2 mg/0.65 mL subcutaneous pen injector 2 mg SQ WEEKLY #4 each Aspirin [Aspirin 325mg Tab] 325 mg PO HS Cholecalciferol (Vitamin D3) [Vitamin D3 1,000 Unit Cap] 1,000 unit PO DAILY Ascorbic Acid/Ascorbate Sodium [Vitamin C 250 mg Tablet Chew] 500 mg PO DAILY Furosemide [Furosemide 40MG tAB] 40 mg PO 0900,1200 Cyanocobalamin (Vitamin B-12) [B-12] 2,500 mcg SL DAILY Hydrocodone/Acetaminophen [Lortab 7.5/325mg tablet] 1 tab PO TIDP PRN #90 tab PRN Reason: Breakthru Moderate Pain Discontinued meclizine 25 mg tablet 25 mg PO TID #90 tab - Problem Reconciliation Problems Reviewed?: Yes
== END 2019-01-12 14:53 | DRG 641 ==
LOC: 2ND 17:47 → ER 17:47 → OBSVTOIN 21:50 → 2ND 21:51
PROVIDERS: ADMIT Emergency Medicine; ATTEND Family Medicine
CPT/HCPCS: 36415; 62270; 70450; 71010; 71045; 71275; 73030; 73560; 73562; 80048; 80053; 80164; 80202; 81001; 82550; 82553; 82962; 83605; 83880; 83930; 84443; 84484; 85007; 85025; 85378; 85651; 86140; 86318; 87040; 87070; 87077; 87086; 87088; 87186; 87205; 93005; 93306; 93970; 94640; 94761; 96374; 96375; 97110; 97161; 97530; 99284; C1751; J2405; J3370

== ENCOUNTER → 2019-05-15 15:48 | Outpatient (CLI) | payer MEDICARE, SELFPAY ==
[2019-05-15 16:24] LABS: Adenovirus F 40/41, stool Not Detected (NotDetected); Astrovirus Not Detected (NotDetected); Campylobacter Not Detected (NotDetected); Cryptosporidium Not Detected (NotDetected); Cyclospora Cayetanesis Not Detected (NotDetected); Entamoeba histolytica Not Detected (NotDetected); Enteroaggregative E coli Not Detected (NotDetected); Enteropathogenic E coli Not Detected (NotDetected); Enterotoxigenic E coli Not Detected (NotDetected); Giardia lamblia Not Detected (NotDetected); Norovirus Not Detected (NotDetected); Plesimonas Shigalloides, PCR Not Detected (NotDetected); Rotavirus A Not Detected (NotDetected); Salmonella, PCR Not Detected (NotDetected); Sapovirus Not Detected (NotDetected); Shiga-like toxin E coli Not Detected (NotDetected); Shigella Enterovasive E coli Not Detected (NotDetected); Vibrio Cholerae Not Detected (NotDetected); Vibrio, PCR Not Detected (NotDetected); Yersinia Entercolitica, PCR Not Detected (NotDetected)
[2019-05-15 18:33] LABS: Clostridium Difficile A/B, PCR Detected (NotDetected)
[2019-05-16 16:03] LABS: Occult Blood,Stool Positive (Negative)
== END ==
PROVIDERS: Visit Provider Emergency Medicine
DX: R19.7 Diarrhea, unspecified (principal); R19.5 Other fecal abnormalities; A04.72 Enterocolitis due to Clostridium difficile, not specified as recurrent
CPT/HCPCS: 82272; 87506; G0328